=== PATIENT | male | born 1955 | race Caucasian/White ===

== ENCOUNTER → 2018-10-16 | Outpatient (CLI) | payer BC, OTHER | LOC: HYPER 06:57 | DX: T81.89XA Other complications of procedures, not elsewhere classified, initial encounter (principal); K61.1 Rectal abscess; K43.2 Incisional hernia without obstruction or gangrene; K43.9 Ventral hernia without obstruction or gangrene; E11.9 Type 2 diabetes mellitus without complications; I50.9 Heart failure, unspecified; N50.1 Vascular disorders of male genital organs; F41.9 Anxiety disorder, unspecified; F17.290 Nicotine dependence, other tobacco product, uncomplicated; F32.9 Major depressive disorder, single episode, unspecified; Z79.01 Long term (current) use of anticoagulants; Z93.3 Colostomy status; Z79.4 Long term (current) use of insulin; Z89.411 Acquired absence of right great toe; Y92.89 Other specified places as the place of occurrence of the external cause; Y83.8 Other surgical procedures as the cause of abnormal reaction of the patient, or of later complication, without mention of misadventure at the time of the procedure ==

== ENCOUNTER → 2018-10-27 | Outpatient (CLI) | payer BC, OTHER | LOC: HYPER 07:40 | DX: T81.89XD Other complications of procedures, not elsewhere classified, subsequent encounter (principal); I50.9 Heart failure, unspecified; K61.1 Rectal abscess; K43.2 Incisional hernia without obstruction or gangrene; K43.9 Ventral hernia without obstruction or gangrene; N50.1 Vascular disorders of male genital organs; F17.290 Nicotine dependence, other tobacco product, uncomplicated; F41.9 Anxiety disorder, unspecified; F32.9 Major depressive disorder, single episode, unspecified; Z89.411 Acquired absence of right great toe; Z79.01 Long term (current) use of anticoagulants; Z79.4 Long term (current) use of insulin; Y83.8 Other surgical procedures as the cause of abnormal reaction of the patient, or of later complication, without mention of misadventure at the time of the procedure ==

== ENCOUNTER → 2018-11-10 | Outpatient (CLI) | payer BC, OTHER | LOC: HYPER 08:28 | DX: T81.89XD Other complications of procedures, not elsewhere classified, subsequent encounter (principal); E11.9 Type 2 diabetes mellitus without complications; K61.1 Rectal abscess; K43.2 Incisional hernia without obstruction or gangrene; K43.9 Ventral hernia without obstruction or gangrene; I50.9 Heart failure, unspecified; N50.1 Vascular disorders of male genital organs; F17.290 Nicotine dependence, other tobacco product, uncomplicated; F41.9 Anxiety disorder, unspecified; F32.9 Major depressive disorder, single episode, unspecified; Z89.411 Acquired absence of right great toe; Z79.01 Long term (current) use of anticoagulants; Z79.4 Long term (current) use of insulin; Y83.8 Other surgical procedures as the cause of abnormal reaction of the patient, or of later complication, without mention of misadventure at the time of the procedure ==

== ENCOUNTER → 2018-12-11 | Outpatient (CLI) | payer BC, OTHER | LOC: HYPER 11-29 07:20 | DX: T81.89XD Other complications of procedures, not elsewhere classified, subsequent encounter (principal); E11.9 Type 2 diabetes mellitus without complications; I50.9 Heart failure, unspecified; K61.1 Rectal abscess; K43.2 Incisional hernia without obstruction or gangrene; K43.9 Ventral hernia without obstruction or gangrene; N50.1 Vascular disorders of male genital organs; F41.9 Anxiety disorder, unspecified; F32.9 Major depressive disorder, single episode, unspecified; F17.290 Nicotine dependence, other tobacco product, uncomplicated; Z79.01 Long term (current) use of anticoagulants; Z89.411 Acquired absence of right great toe; Z79.4 Long term (current) use of insulin; Y83.8 Other surgical procedures as the cause of abnormal reaction of the patient, or of later complication, without mention of misadventure at the time of the procedure ==

== ENCOUNTER → 2019-01-01 | Outpatient (CLI) | payer BC, OTHER | LOC: HYPER 06:47 | DX: T81.89XD Other complications of procedures, not elsewhere classified, subsequent encounter (principal); K61.1 Rectal abscess; K43.2 Incisional hernia without obstruction or gangrene; N50.1 Vascular disorders of male genital organs; K43.9 Ventral hernia without obstruction or gangrene; I50.9 Heart failure, unspecified; F41.9 Anxiety disorder, unspecified; F17.290 Nicotine dependence, other tobacco product, uncomplicated; F32.9 Major depressive disorder, single episode, unspecified; Z79.01 Long term (current) use of anticoagulants; Z89.411 Acquired absence of right great toe; Z79.4 Long term (current) use of insulin; Y83.8 Other surgical procedures as the cause of abnormal reaction of the patient, or of later complication, without mention of misadventure at the time of the procedure ==

== ENCOUNTER → 2019-02-19 | Outpatient (CLI) | payer BC, OTHER | LOC: HYPER 02-05 06:40 | DX: T81.89XD Other complications of procedures, not elsewhere classified, subsequent encounter (principal); E11.9 Type 2 diabetes mellitus without complications; K61.1 Rectal abscess; K43.2 Incisional hernia without obstruction or gangrene; N50.1 Vascular disorders of male genital organs; K43.9 Ventral hernia without obstruction or gangrene; I50.9 Heart failure, unspecified; F41.9 Anxiety disorder, unspecified; F32.9 Major depressive disorder, single episode, unspecified; F17.290 Nicotine dependence, other tobacco product, uncomplicated; Z79.01 Long term (current) use of anticoagulants; Z79.4 Long term (current) use of insulin; Y83.8 Other surgical procedures as the cause of abnormal reaction of the patient, or of later complication, without mention of misadventure at the time of the procedure ==

== ENCOUNTER → 2019-03-12 | Outpatient (CLI) | payer BC, OTHER | LOC: HYPER 06:49 | DX: T81.89XD Other complications of procedures, not elsewhere classified, subsequent encounter (principal); E11.9 Type 2 diabetes mellitus without complications; I50.9 Heart failure, unspecified; K61.1 Rectal abscess; K43.2 Incisional hernia without obstruction or gangrene; K43.9 Ventral hernia without obstruction or gangrene; N50.1 Vascular disorders of male genital organs; F17.290 Nicotine dependence, other tobacco product, uncomplicated; F41.9 Anxiety disorder, unspecified; F32.9 Major depressive disorder, single episode, unspecified; Z89.411 Acquired absence of right great toe; Z79.01 Long term (current) use of anticoagulants; Z79.4 Long term (current) use of insulin; Y83.8 Other surgical procedures as the cause of abnormal reaction of the patient, or of later complication, without mention of misadventure at the time of the procedure ==

== ENCOUNTER → 2019-04-16 | Outpatient (CLI) | payer BC, OTHER | LOC: HYPER 06:29 | DX: T81.89XD Other complications of procedures, not elsewhere classified, subsequent encounter (principal); K61.1 Rectal abscess; K43.2 Incisional hernia without obstruction or gangrene; I50.9 Heart failure, unspecified; N50.1 Vascular disorders of male genital organs; K43.9 Ventral hernia without obstruction or gangrene; F41.9 Anxiety disorder, unspecified; F17.210 Nicotine dependence, cigarettes, uncomplicated; F32.9 Major depressive disorder, single episode, unspecified; Z89.411 Acquired absence of right great toe; Z79.01 Long term (current) use of anticoagulants; Z79.4 Long term (current) use of insulin; Y83.8 Other surgical procedures as the cause of abnormal reaction of the patient, or of later complication, without mention of misadventure at the time of the procedure ==

== ENCOUNTER → 2019-05-21 | Outpatient (CLI) | payer BC, OTHER | LOC: HYPER 07:03 | DX: T81.89XD Other complications of procedures, not elsewhere classified, subsequent encounter (principal); E11.9 Type 2 diabetes mellitus without complications; K61.1 Rectal abscess; K43.2 Incisional hernia without obstruction or gangrene; I50.9 Heart failure, unspecified; N50.1 Vascular disorders of male genital organs; K43.9 Ventral hernia without obstruction or gangrene; F17.290 Nicotine dependence, other tobacco product, uncomplicated; F41.9 Anxiety disorder, unspecified; F32.9 Major depressive disorder, single episode, unspecified; Z89.411 Acquired absence of right great toe; Z79.01 Long term (current) use of anticoagulants; Z79.4 Long term (current) use of insulin; Y83.8 Other surgical procedures as the cause of abnormal reaction of the patient, or of later complication, without mention of misadventure at the time of the procedure ==

== ENCOUNTER → 2019-07-02 | Outpatient (CLI) | payer BC, OTHER | LOC: HYPER 07:36 | DX: T81.89XD Other complications of procedures, not elsewhere classified, subsequent encounter (principal); K61.1 Rectal abscess; K43.2 Incisional hernia without obstruction or gangrene; K43.9 Ventral hernia without obstruction or gangrene; N50.1 Vascular disorders of male genital organs; I50.9 Heart failure, unspecified; F17.290 Nicotine dependence, other tobacco product, uncomplicated; F41.9 Anxiety disorder, unspecified; F32.9 Major depressive disorder, single episode, unspecified; Z79.01 Long term (current) use of anticoagulants; Z79.4 Long term (current) use of insulin; Y83.8 Other surgical procedures as the cause of abnormal reaction of the patient, or of later complication, without mention of misadventure at the time of the procedure ==

== ENCOUNTER → 2019-08-15 | Outpatient (CLI) | payer BC, OTHER | LOC: HYPER 08-01 21:39 | DX: T81.89XD Other complications of procedures, not elsewhere classified, subsequent encounter (principal); K61.1 Rectal abscess; K43.2 Incisional hernia without obstruction or gangrene; N50.1 Vascular disorders of male genital organs; K43.9 Ventral hernia without obstruction or gangrene; E11.9 Type 2 diabetes mellitus without complications; I50.9 Heart failure, unspecified; F41.9 Anxiety disorder, unspecified; F17.290 Nicotine dependence, other tobacco product, uncomplicated; F32.9 Major depressive disorder, single episode, unspecified; Z89.411 Acquired absence of right great toe; Z79.01 Long term (current) use of anticoagulants; Z79.4 Long term (current) use of insulin; Y83.8 Other surgical procedures as the cause of abnormal reaction of the patient, or of later complication, without mention of misadventure at the time of the procedure ==

== ENCOUNTER → 2019-09-12 | Outpatient (CLI) | payer BC, OTHER | LOC: HYPER 08:11 | DX: T81.89XD Other complications of procedures, not elsewhere classified, subsequent encounter (principal); K61.1 Rectal abscess; K43.2 Incisional hernia without obstruction or gangrene; N50.1 Vascular disorders of male genital organs; K43.9 Ventral hernia without obstruction or gangrene; E11.9 Type 2 diabetes mellitus without complications; I50.9 Heart failure, unspecified; F17.290 Nicotine dependence, other tobacco product, uncomplicated; F41.9 Anxiety disorder, unspecified; F32.9 Major depressive disorder, single episode, unspecified; Z89.411 Acquired absence of right great toe; Z79.01 Long term (current) use of anticoagulants; Z79.4 Long term (current) use of insulin; Y83.8 Other surgical procedures as the cause of abnormal reaction of the patient, or of later complication, without mention of misadventure at the time of the procedure ==

== ENCOUNTER → 2019-10-10 | Outpatient (CLI) | payer BC, OTHER | LOC: HYPER 08:08 | DX: T81.89XA Other complications of procedures, not elsewhere classified, initial encounter (principal); K61.1 Rectal abscess; K43.2 Incisional hernia without obstruction or gangrene; K43.9 Ventral hernia without obstruction or gangrene; E11.9 Type 2 diabetes mellitus without complications; N50.1 Vascular disorders of male genital organs; I50.9 Heart failure, unspecified; F41.9 Anxiety disorder, unspecified; F17.290 Nicotine dependence, other tobacco product, uncomplicated; F32.9 Major depressive disorder, single episode, unspecified; Z89.411 Acquired absence of right great toe; Z79.01 Long term (current) use of anticoagulants; Z79.4 Long term (current) use of insulin; Y92.89 Other specified places as the place of occurrence of the external cause; Y83.8 Other surgical procedures as the cause of abnormal reaction of the patient, or of later complication, without mention of misadventure at the time of the procedure ==

== ENCOUNTER → 2019-12-14 | Outpatient (CLI) | payer BC, OTHER | LOC: HYPER 08:52 | DX: T81.89XD Other complications of procedures, not elsewhere classified, subsequent encounter (principal); E11.621 Type 2 diabetes mellitus with foot ulcer; L89.624 Pressure ulcer of left heel, stage 4; L97.425 Non-pressure chronic ulcer of left heel and midfoot with muscle involvement without evidence of necrosis; S31.000D Unspecified open wound of lower back and pelvis without penetration into retroperitoneum, subsequent encounter; K43.2 Incisional hernia without obstruction or gangrene; N50.1 Vascular disorders of male genital organs; K43.9 Ventral hernia without obstruction or gangrene; R23.4 Changes in skin texture; I50.9 Heart failure, unspecified; F41.9 Anxiety disorder, unspecified; F32.9 Major depressive disorder, single episode, unspecified; F17.200 Nicotine dependence, unspecified, uncomplicated; Z79.4 Long term (current) use of insulin; Z79.01 Long term (current) use of anticoagulants; Z79.82 Long term (current) use of aspirin; Z89.411 Acquired absence of right great toe; X58.XXXD Exposure to other specified factors, subsequent encounter; Y83.8 Other surgical procedures as the cause of abnormal reaction of the patient, or of later complication, without mention of misadventure at the time of the procedure ==

== ENCOUNTER → 2019-12-17 | Outpatient (CLI) | payer BC, OTHER | LOC: SJCVCIMAG 07:48 | DX: I73.9 Peripheral vascular disease, unspecified (principal); L97.429 Non-pressure chronic ulcer of left heel and midfoot with unspecified severity; L97.419 Non-pressure chronic ulcer of right heel and midfoot with unspecified severity ==

== ENCOUNTER → 2019-12-21 | Outpatient (CLI) | payer BC, OTHER | LOC: HYPER 08:50 | DX: T81.89XD Other complications of procedures, not elsewhere classified, subsequent encounter (principal); E11.621 Type 2 diabetes mellitus with foot ulcer; L89.624 Pressure ulcer of left heel, stage 4; L97.422 Non-pressure chronic ulcer of left heel and midfoot with fat layer exposed; K61.1 Rectal abscess; K43.2 Incisional hernia without obstruction or gangrene; K43.9 Ventral hernia without obstruction or gangrene; N50.1 Vascular disorders of male genital organs; R23.4 Changes in skin texture; I50.9 Heart failure, unspecified; F41.9 Anxiety disorder, unspecified; F17.290 Nicotine dependence, other tobacco product, uncomplicated; F32.9 Major depressive disorder, single episode, unspecified; Z89.411 Acquired absence of right great toe; Z79.01 Long term (current) use of anticoagulants; Z79.4 Long term (current) use of insulin; Y83.8 Other surgical procedures as the cause of abnormal reaction of the patient, or of later complication, without mention of misadventure at the time of the procedure ==

== ENCOUNTER → 2020-01-04 | Outpatient (CLI) | payer BC, OTHER | LOC: HYPER 08:19 | DX: T81.89XD Other complications of procedures, not elsewhere classified, subsequent encounter (principal); E11.621 Type 2 diabetes mellitus with foot ulcer; L89.624 Pressure ulcer of left heel, stage 4; L97.422 Non-pressure chronic ulcer of left heel and midfoot with fat layer exposed; K61.1 Rectal abscess; K43.2 Incisional hernia without obstruction or gangrene; K43.9 Ventral hernia without obstruction or gangrene; N50.1 Vascular disorders of male genital organs; E66.01 Morbid (severe) obesity due to excess calories; I50.9 Heart failure, unspecified; F41.9 Anxiety disorder, unspecified; F32.9 Major depressive disorder, single episode, unspecified; F17.290 Nicotine dependence, other tobacco product, uncomplicated; Z89.411 Acquired absence of right great toe; Z79.01 Long term (current) use of anticoagulants; Z79.4 Long term (current) use of insulin; Z68.29 Body mass index [BMI] 29.0-29.9, adult; Y83.8 Other surgical procedures as the cause of abnormal reaction of the patient, or of later complication, without mention of misadventure at the time of the procedure ==

== ENCOUNTER → 2020-01-18 | Outpatient (CLI) | payer BC, OTHER | LOC: HYPER 09:12 | DX: T81.89XD Other complications of procedures, not elsewhere classified, subsequent encounter (principal); E11.621 Type 2 diabetes mellitus with foot ulcer; L89.624 Pressure ulcer of left heel, stage 4; L97.422 Non-pressure chronic ulcer of left heel and midfoot with fat layer exposed; K61.1 Rectal abscess; K43.2 Incisional hernia without obstruction or gangrene; N50.1 Vascular disorders of male genital organs; K43.9 Ventral hernia without obstruction or gangrene; I50.9 Heart failure, unspecified; F41.9 Anxiety disorder, unspecified; Z79.4 Long term (current) use of insulin; Z79.01 Long term (current) use of anticoagulants; Z89.411 Acquired absence of right great toe; Y83.8 Other surgical procedures as the cause of abnormal reaction of the patient, or of later complication, without mention of misadventure at the time of the procedure ==

== ENCOUNTER → 2020-02-01 | Outpatient (CLI) | payer BC | LOC: HYPER 08:33 | DX: T81.89XD Other complications of procedures, not elsewhere classified, subsequent encounter (principal); E11.621 Type 2 diabetes mellitus with foot ulcer; L89.624 Pressure ulcer of left heel, stage 4; L97.421 Non-pressure chronic ulcer of left heel and midfoot limited to breakdown of skin; L84 Corns and callosities; K61.1 Rectal abscess; K43.2 Incisional hernia without obstruction or gangrene; E66.01 Morbid (severe) obesity due to excess calories; N50.1 Vascular disorders of male genital organs; I50.9 Heart failure, unspecified; K43.9 Ventral hernia without obstruction or gangrene; F41.9 Anxiety disorder, unspecified; F32.9 Major depressive disorder, single episode, unspecified; F17.290 Nicotine dependence, other tobacco product, uncomplicated; Z89.411 Acquired absence of right great toe; Z79.01 Long term (current) use of anticoagulants; Z79.4 Long term (current) use of insulin; Z68.29 Body mass index [BMI] 29.0-29.9, adult; Y83.8 Other surgical procedures as the cause of abnormal reaction of the patient, or of later complication, without mention of misadventure at the time of the procedure ==

== ENCOUNTER → 2020-02-15 | Outpatient (CLI) | payer BC | LOC: HYPER 08:09 | DX: T81.89XD Other complications of procedures, not elsewhere classified, subsequent encounter (principal); E11.621 Type 2 diabetes mellitus with foot ulcer; L89.624 Pressure ulcer of left heel, stage 4; L97.422 Non-pressure chronic ulcer of left heel and midfoot with fat layer exposed; K43.2 Incisional hernia without obstruction or gangrene; N50.1 Vascular disorders of male genital organs; K43.9 Ventral hernia without obstruction or gangrene; R23.4 Changes in skin texture; I50.9 Heart failure, unspecified; F41.9 Anxiety disorder, unspecified; F32.9 Major depressive disorder, single episode, unspecified; F17.290 Nicotine dependence, other tobacco product, uncomplicated; Z79.01 Long term (current) use of anticoagulants; Z79.4 Long term (current) use of insulin; Y83.8 Other surgical procedures as the cause of abnormal reaction of the patient, or of later complication, without mention of misadventure at the time of the procedure ==

== ENCOUNTER → 2020-03-07 | Outpatient (CLI) | payer BC | LOC: HYPER 08:05 | DX: T81.89XD Other complications of procedures, not elsewhere classified, subsequent encounter (principal); E11.621 Type 2 diabetes mellitus with foot ulcer; L89.613 Pressure ulcer of right heel, stage 3; L97.412 Non-pressure chronic ulcer of right heel and midfoot with fat layer exposed; L89.624 Pressure ulcer of left heel, stage 4; L97.421 Non-pressure chronic ulcer of left heel and midfoot limited to breakdown of skin; K61.1 Rectal abscess; R23.4 Changes in skin texture; K43.2 Incisional hernia without obstruction or gangrene; N50.1 Vascular disorders of male genital organs; K43.9 Ventral hernia without obstruction or gangrene; L84 Corns and callosities; I50.9 Heart failure, unspecified; F32.9 Major depressive disorder, single episode, unspecified; F41.9 Anxiety disorder, unspecified; F17.290 Nicotine dependence, other tobacco product, uncomplicated; Z79.01 Long term (current) use of anticoagulants; Z79.4 Long term (current) use of insulin; Z79.82 Long term (current) use of aspirin; Z89.411 Acquired absence of right great toe; Y83.8 Other surgical procedures as the cause of abnormal reaction of the patient, or of later complication, without mention of misadventure at the time of the procedure ==

== ENCOUNTER 2020-03-13 11:47 | Inpatient (IN) | payer BC, OTHER ==
[~2020-03-13] VITALS: Ht 182.9 cm; Wt 99.8 kg
[2020-03-13 11:51] VITALS: BP 96/63
[2020-03-13] MEDS ORDERED: COREG6.25 MG PO (12:14)
[2020-03-13] MEDS ORDERED: ANTIVERT25 MG PO (12:14)
[2020-03-13] MEDS ORDERED: ONDANSETRON HCL4 M2 PO (12:14)
[2020-03-13] MEDS ORDERED: GEMFIBROZIL 60600 M1 PO (12:15)
[2020-03-13] MEDS ORDERED: CELEBREX 200 M200 M1 PO (12:15)
[2020-03-13] MEDS ORDERED: NEURONTIN600 MG PO (12:15)
[2020-03-13] MEDS ORDERED: NORCO 5-325 TA1 EAC1 PO (12:15)
[2020-03-13] MEDS ORDERED: CILOSTAZOL 100100 MG PO (12:16)
[2020-03-13] MEDS ORDERED: ASA81BEC PO (12:16)
[2020-03-13] MEDS ORDERED: FOLIC ACID1 MG PO (12:16)
[2020-03-13] MEDS ORDERED: METHOTREXA1 GM/40 M2 IM (12:17)
[2020-03-13] MEDS ORDERED: NOVOLIN R100 UNIT/2 SUBQ (12:18)
[2020-03-13] MEDS ORDERED: ZYRTEC10 M5 PO (12:18)
[2020-03-13 13:16] LABS: BASOPHILS 0.5 % (0.0-2.0); EOSINOPHILS 0.2 % (0.0-3.0); HEMATOCRIT 35.9 % (42.0-52.0); HEMOGLOBIN 11.7 gm/dL (14.0-18.0); LYMPHOCYTES 7.9 % (24.0-44.0); MCH 28.9 pg (26.0-34.0); MCHC 32.5 g/dL (28.0-37.0); MCV 88.8 fL (80.0-100.0); MONOCYTES 6.2 % (1.0-8.0); PLATELET COUNT 327 thou/uL (150-400); POLYS 85.2 % (36.0-66.0); RBC 4.04 mil/uL (4.50-6.00); RDW 16.2 % (10.5-14.5); WBC 19.9 thou/uL (4.0-11.0)
[2020-03-13 13:27] LABS: CALCIUM 9.4 mg/dL (8.5-10.1); CREATININE 0.8 mg/dL (0.7-1.3); POTASSIUM 4.3 mmol/L (3.5-5.1)
[2020-03-13 13:33] LABS: ALBUMIN 2.2 g/dL (3.4-5.0); TOTAL BILIRUBIN 0.6 mg/dL (0.2-1.0); TOTAL PROTEIN 7.4 g/dL (6.4-8.2)
[2020-03-13 14:44] VITALS: BP 90/43
[2020-03-13 14:45] VITALS: BP 90/43
[2020-03-13 15:00] VITALS: BP 112/78; BP 90/43
--- NOTE | 2020-03-13 17:44 | NUR ---
PATIENT ADMITTED FROM ER, WITH OSTEOMYELITIS, SEPSIS, LEFT HEEL WOUND, FAILED OPTX. PATIENT ALERT AND ORIENTED X 4. PATIENT C/O PAIN WITH LEFT HEEL 8/10, MORPHINE 4NG IV GIVEN DURING ADMISSION. PATIENT HAS 2 IV'S RIGHT AC IV AND LEFT FOREARM IV. PATIENT ARRIVD ON THE UNIT AT 1545. WILL REPORT OFF TO PRIMARY NURSE.
--- NOTE | 2020-03-13 17:55 | NUR ---
SPOKE WITH DR RODRIGUEZ, HE AGREES WITH LEAVING FOAM DRESSING ON HEEL FOR TONIGHT AND HE WILL SEE PT IN THE AM. LIDODERM PATCH ORDER RECEIVED FOR HELP WITH PAIN RELIEF. WOUND PIC DONE OF LEFT HEEL. CLEANSED WITH CHLORHEXIDINE SWABS AND FOAM AND KERLIX APPLIED. PICTURE OF LEFT BUTTOCK CORRECTION "WOUND" PER PT TAKEN, HOWEVER NO OPEN SPOTS OR DRAINAGE COMING FROM IT, IT IS JUST A SOFT ROUND MASS ON THE INNER ASPECT OF THE LEFT BUTTOCK.
[2020-03-13 20:15] VITALS: BP 88/55
[2020-03-14 04:07] LABS: GLYCOHEMOGLOBIN (HGB A1C) 7.6 % (4.8-5.6)
[2020-03-14 05:00] VITALS: BP 106/76
[2020-03-14 05:37] LABS: ABSOLUTE NEUTROPHILS 13.6 thou/uL (1.4-8.2); BASOPHILS 0.4 % (0.0-2.0); HEMOGLOBIN 10.9 gm/dL (14.0-18.0); LYMPHOCYTES 13.4 % (24.0-44.0); MCHC 32.2 g/dL (28.0-37.0); MCV 90.1 fL (80.0-100.0); PLATELET COUNT 319 thou/uL (150-400); POLYS 76.2 % (36.0-66.0); RBC 3.77 mil/uL (4.50-6.00); RDW 15.9 % (10.5-14.5); WBC 17.8 thou/uL (4.0-11.0)
[2020-03-14 08:06] VITALS: BP 106/71
--- NOTE | 2020-03-14 08:34 | NUR ---
PROGRESS PT A/O X4 WOUND CARE TO LEFT HEAL LARGE AREA OF TISSUE MISSING FOUL ODOR BLACK WOUND EDGES AND THICK SLOUGH MATERIAL OVER WOUND BED. CLEANSED WITH NS MEPILEX ABD AND KERLIX APPLIED. TAKING HYDROCODONE FOR PAIN WITH EFFECT. ACCUCHECKS CONTINUE. CONTINUE POC.
--- NOTE | 2020-03-14 12:10 | HC ---
[facility] [place] [address] CONSULTATION Name: GLADYS VILLATORO Room #: 458-P [facility] IN M.R.#: [id number] Admission: 03/13/20 Attend Phys: Amilcar Lira MD Discharge: Date of : 55 Report #: [id number] THIS REPORT FOR: cc: Manish Guevara MD,Ron Dumas MD, MD ~ CC: Manish Lira DATE OF SERVICE: 03/14/2020 ENDOCRINE CONSULTATION NOTE CONSULTING PHYSICIAN: Dr. Lira. REASON FOR CONSULTATION: Type 2 diabetes mellitus, uncontrolled hyperglycemia. HISTORY OF PRESENT ILLNESS: This is a 64-year-old male patient whose medical background is significant for multiple medical issues including type 2 diabetes mellitus, congestive heart failure, diverticulitis, and chronic nonhealing foot wounds. The patient was admitted to the hospital primarily due to septic changes associated with his nonhealing left foot heel wound. The patient has been a diabetic, starting in 1990, and reports that he is currently maintained on Novolin R insulin at a dose of 34 units twice a day. He does not monitor his blood glucose levels whatsoever at home, but does not appreciate any issues with hypoglycemia. The patient is not aware of complications relating to diabetic retinopathy or diabetic nephropathy and does not have a history of coronary artery disease. However, he has significant difficulties with peripheral diabetic neuropathy, mostly affecting his feet, but to some extent his hands as well. The patient has been dealing with a nonhealing progressively worsening left heel wound over the past 3 months at least which has not responded to outpatient therapy including with antibiotics. REVIEW OF SYSTEMS: CONSTITUTIONAL: Fatigue, tiredness, poor appetite, diminishing p.o. intake, but not documented body weight changes. HEENT: Negative for sore throat, sinus pain or ear drainage. PULMONARY: Occasional shortness of breath, dyspnea on exertion, intermittent cough, but no hemoptysis. CARDIAC: History of congestive heart failure. Intermittent difficulties with leg edema, dyspnea on exertion, but no chest pain or palpitations. GASTROINTESTINAL: Abdominal discomfort, occasional nausea, but no vomiting, no hematemesis. NEUROLOGY: Baseline difficulties with peripheral diabetic neuropathy affecting both feet and hands. No seizure activity, no loss of consciousness. No severe [address] [address] CONSULTATION Name: GLADYS VILLATORO Room #: 458-P [facility] IN M.R.#: [id number] Admission: 03/13/20 Attend Phys: Amilcar Lira MD Discharge: Date of : 55 Report #: [id number] frequent headaches. DERMATOLOGY: Nonhealing left heel wound worsening progressive over 3 months. Otherwise, his review of systems noncontributory other than those mentioned in HPI. PAST MEDICAL HISTORY: 1. Type 2 diabetes mellitus. 2. Congestive heart failure. 3. Peripheral diabetic neuropathy. 4. Dyslipidemia. 5. Diverticulitis. 6. Rheumatoid arthritis. 7. Hypertension. OUTPATIENT MEDICATIONS: 1. Zofran 4 mg q.8 hours p.r.n. 2. Carvedilol 6.25 mg b.i.d. 3. Meclizine 25 mg daily as needed. 4. Gabapentin 600 mg p.o. b.i.d. 5. Celebrex 200 mg daily. 6. Gemfibrozil 600 mg t.i.d. 7. Aspirin enteric coated 81 mg daily. 8. Folic acid 1 mg daily. 9. Methotrexate 250 IV weekly. 10. Human R insulin 34 units b.i.d. 11. Zyrtec 10 mg daily. ALLERGIES: CIPROFLOXACIN. FAMILY HISTORY: Noncontributory. SOCIAL HISTORY: He lives with his , daughter. He smokes one and a half packs per day. Does not currently work. Does not drink alcohol or use illicit drugs. PHYSICAL EXAMINATION: GENERAL: male patient who is not in apparent pain or distress. VITAL SIGNS: Blood pressure is 106/71 mmHg, heart rate is 102 beats per minute, respiration 18 per minute, temperature 36.7 degrees Celsius. CONSTITUTIONAL: The patient is lying in bed, appears relatively comfortable, not in acute pain or distress. HEENT: Anicteric sclerae. Intact extraocular motions. NECK: Supple, without thyromegaly. CHEST: Noted for good air entry bilaterally with scattered rales. No wheezes. HEART: Regular rate and rhythm without murmurs or gallops. ABDOMEN: Soft, lax. No guarding. Active bowel sounds. [address] [address] CONSULTATION Name: GLADYS VILLATORO Room #: 458-P [facility] IN M.R.#: [id number] Admission: 03/13/20 Attend Phys: Amilcar Lira MD Discharge: Date of : 55 Report #: [id number] EXTREMITIES: Lower extremity exam noted for edema of the left foot is wrapped in surgical dressing. NEUROLOGIC: Awake, alert and oriented to time, place and person. The remainder of his examination is nonfocal other than for peripheral sensory deficits. PSYCHIATRIC: Pleasant, interactive. Normal mood and affect. LABORATORY DATA: Since arrival to the hospital, the patient had blood glucose values that have ranged from 102-122 mg/dL. Sodium 133, potassium 4.3, chloride 99, CO2 of 28, anion gap 6, BUN 15, creatinine 0.8, glucose 122, AST 16, total bilirubin 0.6, calcium 9.4, magnesium 1.5, alkaline phosphatase 93, ALT 9, total protein 7.4, albumin 2.2. EGFR 97. Lactic acid 1.5. White blood count 17.8, hemoglobin 10.9, hematocrit 34, and platelets 319. Hemoglobin A1c 7.6%. ASSESSMENT AND PLAN: 1. Type 2 diabetes mellitus. As noted above, the patient has had longstanding type 2 diabetes mellitus and is maintained on somewhat unusual regimen made completely of Humulin R insulin at a fairly large dose of 34 units twice a day. While the patient does not monitor his blood glucose values at all at home, which certainly puts us at a disadvantage of better understanding his most recent pattern, it is rather interesting that his hemoglobin A1c which was last seen on reported at 11% as per the patient a few months ago, has dropped to 7.6% recently and I discussed this dramatic change with him. He attributed that to his diminishing and severely limited p.o. intake as of the last several weeks, which he attributes to nausea and just simply losing appetite. During this hospital stay so far, the patient has maintained normal glycemia without any active line of therapy aside from a Humalog supplemental scale, which has not been activated due to lack of need. In the immediate setting, we could certainly continue with the current conservative approach, maintain blood glucose monitoring a.c. and at bedtime, and adjust his management accordingly. Long-term, and given this level of glycemia and the lack of need of scheduled insulin intake, the patient could certainly be a candidate for oral antidiabetic therapy such as metformin and/or sulfonylureas. 2. Peripheral diabetic neuropathy. The patient has what is described by him as severe neuropathy. He is maintained on gabapentin 600 mg b.i.d., which appears to offer fair control of his symptoms, he is to continue with the same. 3. Hypertension. The patient's level of blood pressure control is adequate, he is to continue with the same. 4. Cellulitis. The patient has been having significant issues with progressive nonhealing left heel wound with possible osteomyelitis. He is currently on vancomycin and ceftriaxone. Wound Team is following closely. 5. Dyslipidemia. The patient is maintained on Lopid 600 mg twice a day, I will continue the same regimen. [address] [address] CONSULTATION Name: GLADYS VILLATORO Room #: 458-P [facility] IN M.R.#: [id number] Admission: 03/13/20 Attend Phys: Amilcar Lira MD Discharge: Date of : 55 Report #: [id number] I certainly appreciate this consultation by Dr. Lira. <ELECTRONICALLY SIGNED> By: Ron Chisholm MD 03/14/20 1210 1035 1148 Ron Chisholm MD /nt
[2020-03-14 14:58] VITALS: BP 115/75
--- NOTE | 2020-03-14 15:33 | NUR ---
PT ADMITTED RELATED TO OSTEOMYELITIS, LEFT HEEL WOUND, SEPSIS, FAILED OPTX. CM REVIEWED CHART AND SPOKE WITH CARE TEAM. CM CALLED AND SPOKE WITH PT AT BEDSIDE THIS DAY. PT IS A&O X4. CM ROLE INTRODUCED. PT INDICATED HE LIVES IN A HOUSE WITH HIS SPOUSE AND DTRS FAMILY WITH NO STEPS TO ENTER THROUGH THE BACK AND NONE INSIDE. PT INDICATED HE HAD A CANE FOR USE AT HOME. PT INDICATED HH A LONG TIME AGO BUT HAD BEEN DOING OP WC HERE RN STAFFING. PT INDICATED HE HAD BEEN INDEPDENENT WITH GAIT AND ADLS RN STAFFING. PT INDICATED HIS DTR IS A NURSE AND ASSISTS HIM WITH THINGS AT HOME IF NEEDED DOESN'T REALLY WANT HH UPON DC. PT INDICATED HE PLANS TO RETURN HOME ONCE MEDICALLY STABLE. CM TO FOLLOW INDICATED WITH DC PANNING.
--- NOTE | 2020-03-14 19:52 | NUR ---
Assumed pt care at 7am.Pt in and out of bed byself with walker.Assessment completed.vss.Received call from pt family ,updates given.Dr Lira and Surya here,order noted.Pt went for us and mri after breakfast.Drsg change done to left heel as ordered.Pt vanco trough this evening was 13.Dr Scruggs paged but no return call received.Po pain med given as needed.Repot off to Mohini arceo.
[2020-03-14 20:16] VITALS: BP 114/68
[2020-03-15 00:38] VITALS: BP 114/71
[2020-03-15 01:12] LABS: CREATININE 0.8 mg/dL (0.7-1.3); MAGNESIUM 1.5 mg/dL (1.8-2.4); POTASSIUM 3.9 mmol/L (3.5-5.1)
[2020-03-15 03:26] VITALS: BP 114/76
--- NOTE | 2020-03-15 04:01 | NUR ---
PATIENT AOX4 MAKES NEEDS KNOWN. PATIENT HAD SEVERAL PVCS AND ABNORMAL HEART RHYTHM AND TACHYCARDIC WITHOUT ACTIVITY. PATIENT NOTIFIED THIS NURSE HE IS HAVING TO SHIFT SIDE TO BREATHING EASILY. PREP COOK NOTIFIED NEW ORDER OF STAT LAB, EKG AND CHEST X RAY. CHEST X RAY SHOULD PNEUMONIA AND PE. PREP COOK NOTIFIED. PATIENT VANCO. WAS NOT HANGED D/T DR. DICKENS CALL BACK PREP COOK NOTIFIED AND K. TO INFUSE 0100 DOSE. PAIN CONTROLLED THIS SHIFT. PATIENT LEFT HEEL DRESSING IS C/D/I WITH A STRONG ODOR. PATIENT IN BED ASLEEP AT THIS TIME BREATHING REGULAR AND UNLABOURED.
[2020-03-15 06:16] LABS: HEMATOCRIT 31.9 % (42.0-52.0); HEMOGLOBIN 10.4 gm/dL (14.0-18.0); MCHC 32.6 g/dL (28.0-37.0); MCV 88.8 fL (80.0-100.0); RBC 3.59 mil/uL (4.50-6.00); WBC 13.7 thou/uL (4.0-11.0)
[2020-03-15 06:34] LABS: CREATININE 0.6 mg/dL (0.7-1.3); MAGNESIUM 2.2 mg/dL (1.8-2.4); POTASSIUM 3.6 mmol/L (3.5-5.1)
[2020-03-15 07:29] VITALS: BP 126/83
--- NOTE | 2020-03-15 10:12 | EKG ---
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: [facility] : 1955 Requested By: Keyla Solis Order Number: [id number] MD: Nemesio Palma Measurements Intervals Hanahan Rate: 100 P: 1 PA: 181 QRS: 57 QRSD: 122 T: -77 QT: 352 QTc: 454 Interpretive Statements Sinus tachycardia Paired ventricular premature complexes Nonspecific intraventricular conduction delay Borderline repolarization abnormality No previous ECG available for comparison Electronically Signed On 03-15-2020 10:11:07 CDT by Nemesio Palma [email or web address] <ELECTRONICALLY SIGNED> By: Nemesio Palma MD 03/15/20 1011 7 7 Nemesio Palma MD /LOUISE
[2020-03-15 15:23] VITALS: BP 107/67
--- NOTE | 2020-03-15 15:41 | NUR ---
ASSUMED CARE OF PT AT 1500, REVIEWED POC, PT VERBALIZED UNDERSTANDING, IV ABX RUNNING, PT RESTING IN BED, DENIED PAIN, TV ON, CALL LIGHT AT SIDE, WILL MONITOR
--- NOTE | 2020-03-15 15:45 | NUR ---
Assumed pt care at 7am.Pt in bed resting.Assessment completed.vss.Pt c/o left knee pain rated 8/10.Dilaudid ivp given with relief.Dr Aguilera here informed pt about bka .Pt was emotional and wanted to think about and seek Dr Carlton's opinion.Emotional support given.Pt tolerated meds and diet.Left heel drsg intact.Waiting for Dr Jones to round before drgs change.Report off to Mylene arceo.
--- NOTE | 2020-03-15 18:08 | NUR ---
ASSUMED PT CARE AT 1500, PT RESTING IN BED, TV ON, CALL LIGHT AT SIDE, IV ABX INFUSING, AOX4, POC REVIEWED, PT VERBALIZED UNDERSTANDING, WILL MONITOR.
[2020-03-15 20:10] VITALS: BP 113/68
[2020-03-16 03:54] VITALS: BP 94/59
[2020-03-16 06:18] LABS: HEMATOCRIT 31.2 % (42.0-52.0); HEMOGLOBIN 10.2 gm/dL (14.0-18.0); MCHC 32.7 g/dL (28.0-37.0); MCV 88.8 fL (80.0-100.0); RBC 3.51 mil/uL (4.50-6.00); RDW 15.9 % (10.5-14.5); WBC 11.3 thou/uL (4.0-11.0)
[2020-03-16 06:37] LABS: CALCIUM 8.8 mg/dL (8.5-10.1); CREATININE 0.8 mg/dL (0.7-1.3); MAGNESIUM 1.6 mg/dL (1.8-2.4); POTASSIUM 3.9 mmol/L (3.5-5.1)
--- NOTE | 2020-03-16 07:42 | NUR ---
RECIEVED CARE OF THIS PATIENT AT 1900. C/O PAIN IN L HEEL. DRESSING ON L HEEL D/I. IV IN LFA. ACCUCHECK WAS 174, RECIEVED 3UNIT OF LISPRO INSULIN. UP TO BATHROOM BY SELF. IV PAIN MED GIVEN. PATIENT ALERT AND ORIENTED X4. SLEPT VERY LITTLE THIS SHIFT.
[2020-03-16 08:31] VITALS: BP 113/77
[2020-03-16 08:32] VITALS: BP 113/77
--- NOTE | 2020-03-16 11:33 | NUR ---
DR VELASCO HERE TO SEE PATIENT AND WOUND, THIS NURSE DID WOUND CARE TO LEFT HEEL ORDERED AT 0815.DR GLYNN HERE TO SEE PATIENT WILL DO LEFT BKA PATIENT IS AWARE OF PENDING SURGERY.
[2020-03-16 14:32] VITALS: BP 104/69
[2020-03-16 19:13] VITALS: BP 87/57
[2020-03-16 23:47] VITALS: BP 12/71
[2020-03-17 04:00] VITALS: BP 120/72
--- NOTE | 2020-03-17 04:03 | NUR ---
PATIENT LEFT HEEL DRESSING IS C/D/I, WOUND HAS STRONG ODOR. PATIENT HAS BEEN TACHY IN THE MONITOR AND X2 V TACH CALLED BASKETBALL PLAYER NEW ORDER OF MAGNESSIUN AND POTTASSIUM. PAIN CONTROLLED THIS SHIFT. PATIENT IS UP AT MICHAEL.PATIENT IN BED ASLEEP AT THIS TIME BREATHING REGULAR AND UNLABOURED.
[2020-03-17 04:48] LABS: HEMATOCRIT 31.8 % (42.0-52.0); HEMOGLOBIN 10.3 gm/dL (14.0-18.0); MCH 28.7 pg (26.0-34.0); MCHC 32.3 g/dL (28.0-37.0); MCV 88.9 fL (80.0-100.0); RBC 3.58 mil/uL (4.50-6.00); RDW 16.2 % (10.5-14.5); WBC 15.2 thou/uL (4.0-11.0)
[2020-03-17 05:10] LABS: CALCIUM 8.6 mg/dL (8.5-10.1); CREATININE 0.8 mg/dL (0.7-1.3); MAGNESIUM 1.7 mg/dL (1.8-2.4)
[2020-03-17 07:27] VITALS: BP 111/63
[2020-03-17 10:21] LABS: CHOLESTEROL 99 mg/dL (<200); HDL CHOLESTEROL 22 mg/dL (>40); LDL CHOLESTEROL 63 mg/dL (<100); TC:HDL 4.5 Ratio (Not establshd); TRIGLYCERIDE 71 mg/dL (<150); VLDL 14 mg/dL (<40)
--- NOTE | 2020-03-17 11:20 | NUR ---
Assumed pt care at 7am.Assessment completed.vss.Pt was anxious about going for left bka today at noon.Emotional support giveN. called and imnformed about coming to preop room.Pt c/o left heel.Dilaudid ivp given with partial relief.Pt has episode of svt around 1100. One dose of toprol ivp given prior to leaving for surgery at 1120 per bed accompanied by 2 or tech.Will continue to monitor.
--- NOTE | 2020-03-17 11:35 | 2DMMODE ---
[facility] [place] [address] 2 D/M-MODE ECHOCARDIOGRAM Name: GLADYS VILLATORO Room #: 458-P ADM IN M.R.#: [id number] Admission: 03/13/20 Attend Phys: Amilcar Lira MD Discharge: Date of : 55 Report #: [id number] THIS REPORT FOR: cc: Manish Guevara MD, John MD Lammoglia, Francisco J. MD ~ APPROVED REPORT Study performed: 03/17/2020 09:41:08 EXAM: Comprehensive 2D, Doppler, and color-flow Echocardiogram Patient Location: Bedside Room #: 458 Status: routine BSA: 2.22 HR: 107 bpm BP: 111/63 mmHg Rhythm: Tachycardia/Irregular Indications History of CHF, arrhythmias. Pre-Op. DM, HLD, tobacco abuse. 2D Dimensions RVDd: 47.55 mm IVSd: 10.27 (7-11mm) LVOT Diam: 27.41 (18-24mm) LVDd: 69.51 mm PWd: 9.99 (7-11mm) Ascending Ao: 43.24 (22-36mm) LVDs: 66.75 (25-40mm) Aortic Root: 40.42 mm Volumes Left Atrial Volume (Systole) Single Plane 4CH: 100.25 mL Single Plane 2CH: 88.70 mL LA ESV Index: 47.00 mL/m2 Aortic Valve AoV Peak Daniel.: 1.56 m/s AO Peak Gr.: 9.78 mmHg LVOT Max P.07 mmHg LVOT Max V: 0.72 m/s AMILCAR Vmax: 2.71 cm2 Mitral Valve E/A Ratio: 1.2 [facility] [address] [place] [address] 2 D/M-MODE ECHOCARDIOGRAM Name: GLADYS VILLATORO Room #: 458-P [facility] IN [facility].#: [id number] Admission: 03/13/20 Attend Phys: Amilcar Lira, Discharge: Date of : 55 Report #: [id number] MV Decel. Time: 154.12 ms MV E Max Daniel.: 1.39 m/s MV A Daniel.: 1.15 m/s MV PHT: 44.69 ms IVRT: 51.90 ms Pulmonary Valve PV Peak Daniel.: 0.90 m/s PV Peak Gr.: 3.22 mmHg Pulmonary Vein P Vein S: 0.36 m/s P Vein D: 0.50 m/s P Vein S/D Ratio: 0.72 Tricuspid Valve TR Peak Daniel.: 3.64 m/s RAP Estimate: 15.00 mmHg TR Peak Gr.: 53.00 mmHg Left Ventricle Left ventricle is severely dilated. There is global hypokinesis of the left ventricle. There is normal left ventricular wall thickness. Left ventricular systolic function is severely decreased. LVEF is 15-20%. This study is not technically sufficient to allow evaluation of the LV diastolic function. Right Ventricle Right ventricle is dilated. The right ventricular systolic function is low normal. Atria Left atrium is severely dilated. Right atrium is moderately dilated. Aortic Valve Aortic valve is mildly calcified. No aortic regurgitation is present. There is no aortic valvular stenosis. Mitral Valve The mitral valve is normal in structure. Severe mitral regurgitation. Tricuspid Valve The tricuspid valve is normal in structure. Moderate tricuspid regurgitation. Estimated PAP is 68mmHg. Pulmonic Valve [facility] [address] [place] [address] 2 D/M-MODE ECHOCARDIOGRAM Name: GLADYS VILLATORO Room #: 458-P [facility] IN M.R.#: [id number] Admission: 03/13/20 Attend Phys: Amilcar Lira, Discharge: Date of : 55 Report #: [id number] The pulmonary valve is normal in structure. Mild pulmonic regurgitation. Great Vessels Aortic root is dilated at 4.0cm. Ascending aorta is dilated at 4.3cm. IVC is dilated and collapses <50% with inspiration. Pericardium There is no pericardial effusion. <Conclusion> Left ventricle is severely dilated. LVEF is 15-20%. There is global hypokinesis of the left ventricle. Right ventricle is dilated. Left atrium is severely dilated. Right atrium is moderately dilated. Aortic valve is mildly calcified. The mitral valve is normal in structure. Severe mitral regurgitation. The tricuspid valve is normal in structure. Moderate tricuspid regurgitation. Estimated PAP is 68mmHg. The pulmonary valve is normal in structure. Mild pulmonic regurgitation. Aortic root is dilated at 4.0cm. Ascending aorta is dilated at 4.3cm. There is no pericardial effusion. <ELECTRONICALLY SIGNED> By: Rush Freed MD 03/17/20 1134 1134 1134 Rush Freed MD /INF
--- NOTE | 2020-03-17 14:59 | NUR ---
CARE TEAM INDICATED THAT PT IS HAVING L BKA THIS DAY. CM TO DISCUSS POSSIBLE POUST ACUTE CARE STAY ON 5N ONCE MEDICALLY STABLE. CM TO NOTIFY 5N LIAISON TO ENTER CONSULT IF PT IS RECEPTIVE. CM TO FOLLOW INDICATED WITH DC PLANNING.
[2020-03-17 19:33] VITALS: BP 117/74
[2020-03-18 04:06] VITALS: BP 112/70
--- NOTE | 2020-03-18 04:53 | NUR ---
PAIN CONTROLLED THIS SHIFT. PATIENT ENCOURAGED TO ELEVATE LEFT STUMP ABOVE LEVEL OF HIS HEART. PAIN CONTROLLED THIS SHIFT. 50ML DRAINAGE ON HEMOVAC. RANDAL WRP ON THE LBKA IS C/D/I. FALL PRECAUTION IN PLACE. CALL LIGHT AND PERSONAL ITEM WITHIN REACH. PATIENT IN BED ASLEEP AT THIS TIME BREATHING REGULAR AND UNLABOURED.
[2020-03-18 06:07] LABS: HEMATOCRIT 31.7 % (42.0-52.0); MCH 28.3 pg (26.0-34.0); MCHC 31.6 g/dL (28.0-37.0); MCV 89.3 fL (80.0-100.0); RBC 3.55 mil/uL (4.50-6.00); RDW 15.8 % (10.5-14.5); WBC 16.8 thou/uL (4.0-11.0)
[2020-03-18 06:22] LABS: CALCIUM 8.5 mg/dL (8.5-10.1); CREATININE 0.8 mg/dL (0.7-1.3); MAGNESIUM 1.5 mg/dL (1.8-2.4); POTASSIUM 3.5 mmol/L (3.5-5.1)
--- NOTE | 2020-03-18 07:12 | HC ---
[facility] [place] [address] CONSULTATION Name: GLADYS VILLATORO Room #: 458-P [facility] IN M.R.#: [id number] Admission: 03/13/20 Attend Phys: Amilcar Lira MD Discharge: Date of : 55 Report #: [id number] THIS REPORT FOR: cc: Manish Guevara MD,Manish Wasserman,Dea Sullivan MD ~ CC: Manish Lira DATE OF SERVICE: 03/14/2020 ORTHOPEDIC CONSULTATION NOTE REASON FOR CONSULTATION AND CHIEF COMPLAINT: Left heel wound/osteomyelitis. HISTORY OF PRESENT ILLNESS: The patient is a 64-year-old male, poorly controlled diabetic, who reports a left heel wound for about 3 months. He denies any specific injury. He reports that it is painful. He has been [facility] by [facility] and cultures showed an infection. He was then recommended to be admitted. REVIEW OF SYSTEMS: GENERAL: Denies fevers. Does report some occasional chills. INTEGUMENTARY: Denies other wounds. NEUROLOGIC: Reports a history of neuropathy in all of his extremities. PAST MEDICAL HISTORY: Significant for rheumatoid arthritis, diabetes mellitus, diverticulitis. ALLERGIES: CIPROFLOXACIN. SOCIAL HISTORY: Ambulates with a cane usually. Reports he quit smoking yesterday. PAST SURGICAL HISTORY: Cholecystectomy, right great toe amputation. LABORATORY STUDIES: Done on 03/14/2020 show white blood cell count 17.8, hemoglobin 10.9, hematocrit 34, platelet count 319. PHYSICAL EXAMINATION: GENERAL: The patient is awake, alert and oriented x 3, interacts appropriately. He is well-developed, well-nourished male in no acute distress. He has normal affect. VITAL SIGNS: Most recent vital signs show a temperature of 36.6, heart rate 100, respiratory rate 16, blood pressure 106/76, pulse oximetry is 96% on room air. [facility] [address] [place] [address] CONSULTATION Name: GLADYS VILLATORO Room #: 458-P [facility] IN .R.#: [id number] Admission: 03/13/20 Attend Phys: Amilcar Lira MD Discharge: Date of : 55 Report #: [id number] EXTREMITIES: Examination of his left lower extremity, there is a foul odor. There is diffuse edema to his foot and ankle with mild diffuse erythema. There is a 5 cm heel ulcer with necrotic tissue. He has grossly normal strength and stability. He has brisk capillary refill. I am unable to palpate a pulse. RADIOGRAPHS: Three views of the left foot were reviewed and interpreted by myself as well as the report was reviewed, which shows some posterior calcaneal changes, most likely representing early osteomyelitis. 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 We will await the MRI. We will discuss with one of my [facility] partners who will see him this weekend. He may need a debridement. We briefly discussed he may possibly need an amputation at some point. I encouraged good diabetic control. Questions were encouraged and answered to the best of my ability. <ELECTRONICALLY SIGNED> By: Dea Wasserman MD 03/18/20711 9 0629 Dea Wasserman MD /nt
[2020-03-18 07:34] VITALS: BP 121/79
[2020-03-18 07:55] VITALS: BP 153/63
--- NOTE | 2020-03-18 14:40 | O ---
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 PROCEDURE: Left below-knee amputation. SURGEON: Jasen Aguilera MD. AEROSPACE QUALITY ENGINEER: Rhona Grant PA-C. INDICATIONS FOR AEROSPACE QUALITY ENGINEER: Throughout the case, extensive retraction and manipulation of the leg was required. This was afforded to me by my health care legal assistant. ANESTHESIA: LMA. TOURNIQUET TIME: 24 minutes. ESTIMATED BLOOD LOSS: 50 mL. COMPLICATIONS: None. SPECIMENS: Left foot was sent for pathology. CONDITION UPON LEAVING THE OPERATING ROOM: Stable. INDICATIONS FOR PROCEDURE: The patient is a 64-year-old gentleman who is a diabetic with severe peripheral vascular disease. He has had a heel ulcer for several months. This has gotten progressively worse despite conservative measures. MRI scan was performed showing to have osteomyelitis of his calcaneus. After discussion with him regarding treatment options including below-knee amputation versus partial calcanectomy and debridement, he elected for below-knee amputation. [facility] [address] [place] [address] OPERATIVE REPORT Name: GLADYS VILLATORO Room #: 458-P [facility] IN M.R.#: [id number] Admission: 03/13/20 Attend Phys: Amilcar Lira MD Discharge: Date of : 55 Report #: [id number] DESCRIPTION OF PROCEDURE: Risks, benefits, alternatives, complications were discussed in detail with the patient including but not limited to risk of anesthesia, risk of continued infection, need for higher amputation. Informed consent was obtained from the patient. Left leg was appropriately marked in the preoperative holding area. He previously was on IV antibiotics and these were continued. He was brought to the operating room and placed in supine position on operating room table. LMA anesthesia was induced without complication. Tourniquet was placed on the left thigh. Left lower extremity was prepped and draped in normal sterile fashion. Timeout was performed properly identifying the patient and procedure as well as the instrumentation. All in the operating room were in agreement. The leg was then marked with a skin marker for a posterior flap transtibial amputation. Left lower extremity was elevated, tourniquet was inflated. Tourniquet time was 24 minutes. Incision was made with 10 blade through the skin and dissection was taken with Bovie cautery down to the fascia. A transtibial cut was made with the oscillating saw. Anterior portion of the tibia was bevelled. The fibula was resected 1 cm proximal to the tibial resection and vessels were dissected out and tied off. Tibial nerve was dissected out and cut sharply with a 10 blade to avoid neuroma formation. After the amputation was completed, the posterior musculature was debulked in order to be a flap anteriorly. The wound was thoroughly irrigated with normal saline. The posterior musculature was flapped over the end of the tibia and was sewn to the anterior fascia. Deep drain was placed. The skin was closed with 2-0 Vicryl and skin ana rosa and a soft dressing was applied. The patient tolerated this procedure well and went to the recovery room under care of anesthesia postoperatively. <ELECTRONICALLY SIGNED> By: Jasen Aguilera MD 03/18/20 1440 1428 1453 Jasen Aguilera MD /nt
[2020-03-18 14:45] VITALS: BP 111/88
--- NOTE | 2020-03-18 15:54 | NUR ---
CM SPOKE WITH PT THIS AM ABOUT POSSIBLE POST ACUTE CARE STAY AND 5N. PT WAS SOMEWHAT RELUCTANT BUT HE HADN'T WORKED WITH THERAPY YET. HE WAS RECEPTIVE TO INFORMATIONAL VISIT. KATTY 5N LIAISON WAS TO VISIT/ASSSESS PT. CM TO FOLLOW INDICATED WITH DC PLANNING.
--- NOTE | 2020-03-18 19:30 | NUR ---
Assessment completed.vss.Pt was svt per tele.Dr Lira and stefany aware. Toprol ivp given .Assisted pt with tray setup at all meals.Good appetite.Pt tolerated meds. Received call from Ortho manager coding order noted.Hemovac will be dc this evening.Lt erich jim c/d/i.Report off to she arceo.
[2020-03-18 19:50] VITALS: BP 85/47
[2020-03-18 23:11] VITALS: BP 132/101
--- NOTE | 2020-03-18 23:31 | NUR ---
ELIDA KENDRICK NOTIFIED RE: LOW BP. ORDERS RECEIVED AND STARTED.
[2020-03-19 05:03] VITALS: BP 79/54
[2020-03-19 05:52] LABS: CALCIUM 8.4 mg/dL (8.5-10.1); CREATININE 1.4 mg/dL (0.7-1.3); MAGNESIUM 1.8 mg/dL (1.8-2.4); POTASSIUM 3.6 mmol/L (3.5-5.1)
[2020-03-19 06:08] VITALS: BP 90/64
[2020-03-19 07:28] VITALS: BP 106/57
--- NOTE | 2020-03-19 08:43 | NUR ---
PATIENT SEEN FOR REHAB CONSULT ON 03/18/20 BY KATTY LEON NP WITH DR. BURK. PATIENT IS AN APPROPRIATE CANDIDATE FOR ACUTE REHAB. PATIENT CAN COME TO WHEN MEDICALLY READY AND INSURANCE AUTHORIZATION HAS BEEN OBTAINED. THANK YOU FOR THIS REFERRAL.
--- NOTE | 2020-03-19 13:19 | NUR ---
KATTY Barros LIAISON ASSESSED PT YESTERDAY AND IT WAS DETERMINED THAT PT WOULD BE APPROPRIATE FOR POSSIBLE ADMISSION. PT IS AGREEABLE. CARE TEAM ASKED THAT JohnN AUBMIT FOR INSURANCE AUTH AND ANTICIPATE THAT PT MAY BE MEDICALLY STABLE TO DC SOON TOMORROW. CM FOLLOWING REGARDING DC PLANNING.
[2020-03-19 14:50] VITALS: BP 106/59
--- NOTE | 2020-03-19 15:08 | PATH ---
[facility] [address] [place] [address] PATHOLOGY RPT PROCEDURE Name: GEOFF PEARSON Room #: 458-P ADM IN M.R.#: [id number] Admission: 03/13/20 Date of : 55 Discharge: Report #: [id number] Path Case #: [id number] [facility] Accession Number: [id number] . 01 Material submitted: . leg - LEFT BELOW THE KNEE AMPUTATION. Modifiers: left . 01 Clinical history: . osteomyelitis . 02 Diagnosis: Leg, left, below the knee amputation: - Skin and subcutaneous tissue with ulceration as well as gangrenous necrosis. - Bone with acute osteomyelitis. - Vessels showing moderate calcific atherosclerosis. - Skin and soft tissue margin viable. - Bone margin grossly viable. . (IUV:mml; 03/19/2020) QL 03/19/2020 1132 Local . 02 Electronically signed: . Annette Machado MD, Pathologist NPI- [id number] . 01 Gross description: . Received fresh in a red biohazard bag labeled "Geoff Pearson, left below the knee amputation" and consists of a left below the knee amputation specimen measuring 31.5 cm heel to proximal skin soft tissue margin and 27.0 cm heel to big toe. Protruding from the proximal margin is the tibia and fibula measuring 6.0 and 2.0 cm respectively. The skin soft tissue and bone margins grossly appear viable. Present on the heel is a large gangrenous ulcerating lesion measuring 7.2 x 5.0 cm. All 5 toes are present displaying thickened yellow-brown nails. No additional lesions are identified. The tibial vasculature displays patent lumens. Automatic Lump Making Machine Tender sections are submitted as follows: . A1: Skin soft tissue margin A2: Heel ulceration A3: Bone deep to heel ulceration following decalcification A4: Anterior and posterior tibial arteries (SDY; 03/18/2020) SYU/SYU 03/19/2020 1410 Local . 02 Pathologist provided ICD-10: L97.929, I96, I70.[address] [address] PATHOLOGY RPT PROCEDURE Name: GEOFF PEARSON Room #: 458-P ADM IN M.R.#: [id number] Admission: 03/13/20 Date of : 55 Discharge: Report #: [id number] Path Case #: [id number] . 02 [facility] . [id number], [id number] Specimen Comment: A courtesy copy of this report has been sent to [phone] Specimen Comment: [id number], Specimen Comment: Report sent to ,DR JESUS / DR DOLL Specimen Comment: Report sent to Performed at: [address] [facility], [place] [id number] MD Jose Watson MD Phone: [phone] Performed at: [address] [facility] [id number] MD Annette Machado MD Phone: [phone]
[2020-03-19 19:25] VITALS: BP 90/54
[2020-03-20 05:57] LABS: CALCIUM 8.8 mg/dL (8.5-10.1); CREATININE 1.5 mg/dL (0.7-1.3); MAGNESIUM 1.8 mg/dL (1.8-2.4); POTASSIUM 3.6 mmol/L (3.5-5.1)
[2020-03-20 07:38] VITALS: BP 116/69
--- NOTE | 2020-03-20 08:19 | NUR ---
PT AOX4. FALL PRECAUTION IN PLACE. STUMP DRESSING IS C/D/I. PT REPORTED PAIN AND WAS TREATED WITH PRN PAIN MEDS. PT IS PASSING GAS. ABX TREATMENT CONTINUED. PT RUNS TACHY ON TELE. PROVIDER AWARE. PT HAS A SOFT BP BUT OTHER VSS. NO S/S OF ACUTE DISTRESS.
--- NOTE | 2020-03-20 08:59 | NUR ---
when medical stable for dc to 5n, bedside nurse to call report to [phone]
[2020-03-20] MEDS ORDERED: PROTONIX40 M1 PO (17:29)
[2020-03-20] MEDS ORDERED: ALTACE5 MG PO (17:29)
[2020-03-20] MEDS ORDERED: LIDOPATCH1 EACH TRANSDERM (17:29)
[2020-03-20] MEDS ORDERED: NOVOLOG100 UNIT/1 SUBQ (17:29)
[2020-03-20] MEDS ORDERED: CEFEPIME 1 GM VI1 G2 INJECTION (17:29)
[2020-03-20] MEDS ORDERED: HEPARIN SO5000 UNIT/ SUBQ (17:29)
[2020-03-20] MEDS ORDERED: TRADJENTA5 MG PO (17:29)
[2020-03-20] MEDS ORDERED: VANCOMYCIN HCL1 G1 IV (17:29)
[2020-03-20] MEDS ORDERED: METRONIDAZOLE500 M4 IV (17:29)
[2020-03-20] MEDS ORDERED: PERCOCET PO (17:30)
[2020-03-20 17:32] VITALS: BP 92/60
--- NOTE | 2020-03-20 18:31 | NUR ---
Assumed pt care this am, pain is managed with medications, partial relief is noted. came today to visit, pt had refused PT in the pm, feel they are pushing too hard and he will get to where he needs to be when he is ready. Stump dressing is c/d/i, blood sugars done with medication given as per emar. On tele, running SR to . [facility] followed with no signs or verbalizations of distress noted. Report given to the [address] [place] [address] nurse, pt went up with IV as per request. Carvedilol not given, d/t bp being low. Pt is now transferred to [address] [place] [address] room 514
--- NOTE | 2020-03-26 08:07 | HC ---
[facility] [place] [address] CONSULTATION Name: GLAYDS VILLATORO Room #: 458-P [facility] IN M.R.#: [id number] Admission: 03/13/20 Attend Phys: Amilcar Lira MD Discharge: 03/20/20 Date of : 55 Report #: [id number] THIS REPORT FOR: cc: Manish Guevara MD,Karthikeyan Lopez MD, MD ~ CC: Manish Lira DATE OF SERVICE: 03/14/2020 WOUND CARE CONSULTATION PERSONAL PHYSICIAN: Manish Guevara. CHIEF COMPLAINT: Left heel ulcer. HISTORY OF PRESENT ILLNESS: This is a 64-year-old white male with longstanding history of diabetes and rheumatoid arthritis. The patient has been followed by my partner, Dr. Carlton in the outpatient wound clinic for ulcers on bilateral heels. The right of which is a dry eschar and scabbed over, the left is an open draining wound. The patient states this past week the wound started having increased odor, drainage and pain, which prompted him to come to the Emergency Department yesterday afternoon and to be admitted to the hospital for cellulitis of the left heel with suspected osteomyelitis. Orthopedic Surgery has already been consulted to see the patient and an MRI is chronic pending. The patient states that he had no fevers or chills as an outpatient. The patient had been on a course of oral doxycycline, but this did not seem to do anything for his heel. The patient states his right heel has been stable with a dry eschar. The patient denies any other associated wounds. PAST MEDICAL HISTORY: Significant for rheumatoid arthritis with immunosuppression, diabetes, previous toe amputations. CURRENT MEDICATIONS: Multiple, I reviewed the patient's medication list. DRUG ALLERGIES: CIPRO. SOCIAL HISTORY: The patient smokes approximately one-half pack of cigarettes daily, has social alcohol use. FAMILY HISTORY: Not pertinent to current medical condition. REVIEW OF SYSTEMS: CONSTITUTIONAL: The patient denies fevers or chills. NEUROLOGIC: The patient denies numbness, tingling, weakness in arms or legs. [facility] [address] [place] [address] CONSULTATION Name: GLADYS VILLATORO Room #: 458-P [facility] IN M.R.#: [id number] Admission: 03/13/20 Attend Phys: Amilcar Lira MD Discharge: 03/20/20 Date of : 55 Report #: [id number] EYES: No complaints. ENT: No complaints. CARDIAC: The patient has chronic lower extremity edema, but no chest pain or palpitation. RESPIRATORY: The patient denies shortness of breath, cough or wheezes. GASTROINTESTINAL: The patient denies nausea, vomiting or abdominal pain. GENITOURINARY: The patient denies urgency or frequency. MUSCULOSKELETAL: No complaints. SKIN: The patient has chronic ulcerations on the left and right heel. PHYSICAL EXAMINATION: VITAL SIGNS: Temperature 36.7, pulse 102, respirations 18, BP 106/71. GENERAL: This is an alert and oriented x 3, pleasant white male who is chronically ill appearing. HEENT: Normocephalic, atraumatic. Mucous membranes are dry. Pupils are round. Sclerae white. NECK: Supple, nontender. LUNGS: Clear. HEART: Regular. ABDOMEN: Soft, nontender. EXTREMITIES: Evaluation of bilateral lower extremity reveals 1-2+ edema with faint distal pulses. Right heel has a dry and intact eschar without signs of infection. No involvement of deeper structures. Evaluation of left heel reveals a necrotic malodorous ulceration with a palpable calcaneal bone. There is copious amounts of foul-smelling brown drainage. Periwound is erythematous, warm to touch. There is no significant tunneling. Rest of the left foot is without open ulcerations. NEUROLOGIC: Cranial nerves 2-12 grossly intact. Motor and sensory grossly intact. LABORATORY VALUES: White count 17.8, hemoglobin 10.9, hemoglobin A1c is 7.6, albumin 2.2. Plain x-ray of the left foot shows subtle lucency along the anterior aspect of the calcaneus, concerning for osteomyelitis. IMPRESSION: 1. Chronic ulceration, left heel, now with cellulitis and concern for underlying osteomyelitis. 2. Chronic ulcer, right heel, unstageable. 3. Diabetes mellitus. 4. Rheumatoid arthritis with immunosuppression. 5. Protein-calorie malnutrition -- severe with albumin of 2.2. 6. Generalized debility. PLAN: At this time, we will use Dakin's wet to dry dressings to the left heel, cover with ABD and change twice daily. Orthopedic Surgery has been consulted. We are awaiting the MRI results at this time. I have talked to the patient [address] [place] [address] CONSULTATION Name: GLADYS VILLATORO Room #: 458-P [facility] IN ..#: [id number] Admission: 03/13/20 Attend Phys: Amilcar Lira MD Discharge: 03/20/20 Date of : 55 Report #: [id number] about the potential that he might need an at least a partial calcanectomy if not a [id number] amputation depending on what the MRI shows. We will continue Betadine to the right heel with heel protection at all times. We will maximize patient's oral protein supplementation for continued healing. We will utilize physical and occupational therapies for strengthening as able. Continue IV antibiotics as well as all other current medications at this time. I appreciate ability to consult. <ELECTRONICALLY SIGNED> By: Karthikeyan London MD 03/26/20 0807 1302 1600 Karthikeyan London MD /nt
== END 2020-03-20 18:39 | DRG 853 ==
LOC: ER 11:47 → 4W 14:37 → EROBS 14:37 → 4W 15:40
PROVIDERS: Nurse Practitioner; Nurse Practitioner Family; Physician Assistant; ADMIT Internal Medicine; ATTEND Internal Medicine
PROC: 0Y6J0Z1 Detachment at Left Lower Leg, High, Open Approach (ICD-10-PCS; principal; 2020-03-17)
DX: A41.9 Sepsis, unspecified organism (principal); E43 Unspecified severe protein-calorie malnutrition; M86.8X8 Other osteomyelitis, other site; L97.429 Non-pressure chronic ulcer of left heel and midfoot with unspecified severity; L03.116 Cellulitis of left lower limb; M31.9 Necrotizing vasculopathy, unspecified; E11.52 Type 2 diabetes mellitus with diabetic peripheral angiopathy with gangrene; I96 Gangrene, not elsewhere classified; E11.69 Type 2 diabetes mellitus with other specified complication; I50.9 Heart failure, unspecified; M06.9 Rheumatoid arthritis, unspecified; F17.210 Nicotine dependence, cigarettes, uncomplicated; E11.42 Type 2 diabetes mellitus with diabetic polyneuropathy; E78.5 Hyperlipidemia, unspecified; E11.51 Type 2 diabetes mellitus with diabetic peripheral angiopathy without gangrene; E11.622 Type 2 diabetes mellitus with other skin ulcer; I11.0 Hypertensive heart disease with heart failure; E66.9 Obesity, unspecified; L89.620 Pressure ulcer of left heel, unstageable; Z20.828 Contact with and (suspected) exposure to other viral communicable diseases; L89.610 Pressure ulcer of right heel, unstageable; I49.3 Ventricular premature depolarization; Z88.1 Allergy status to other antibiotic agents; Z90.49 Acquired absence of other specified parts of digestive tract; Z93.3 Colostomy status; Z68.29 Body mass index [BMI] 29.0-29.9, adult; Z89.411 Acquired absence of right great toe; Z71.6 Tobacco abuse counseling
CPT/HCPCS: 10045; 10047; 50010; 50101; 50386; 51771; 53000; 56524; 56528; 57091; 57103; 62110; 62900; 70005

== ENCOUNTER 2020-03-20 16:35 | Inpatient (IN) | payer BC, OTHER ==
[~2020-03-20] VITALS: Ht 182.9 cm; Wt 113.4 kg
[~2020-03-20 16:35] MED LIST: ANTIVERT25 MG PO; ASA81BEC PO; CELEBREX 200 M200 M1 PO; CILOSTAZOL 100100 MG PO; COREG6.25 MG PO; FOLIC ACID1 MG PO; GEMFIBROZIL 60600 M1 PO; METHOTREXA1 GM/40 M2 IM; NEURONTIN600 MG PO; NORCO 5-325 TA1 EAC1 PO; NOVOLIN R100 UNIT/2 SUBQ; ONDANSETRON HCL4 M2 PO; ZYRTEC10 M5 PO
[2020-03-20] MEDS ORDERED: NOVOLOG100 UNIT/1 SUBQ (17:29)
[2020-03-20] MEDS ORDERED: METRONIDAZOLE500 M4 IV (17:29)
[2020-03-20] MEDS ORDERED: HEPARIN SO5000 UNIT/ SUBQ (17:29)
[2020-03-20] MEDS ORDERED: LIDOPATCH1 EACH TRANSDERM (17:29)
[2020-03-20] MEDS ORDERED: PROTONIX40 M1 PO (17:29)
[2020-03-20] MEDS ORDERED: TRADJENTA5 MG PO (17:29)
[2020-03-20] MEDS ORDERED: VANCOMYCIN HCL1 G1 IV (17:29)
[2020-03-20] MEDS ORDERED: ALTACE5 MG PO (17:29)
[2020-03-20] MEDS ORDERED: CEFEPIME 1 GM VI1 G2 INJECTION (17:29)
[2020-03-20] MEDS ORDERED: PERCOCET PO (17:30)
[2020-03-20 18:45] VITALS: BP 99/61
--- NOTE | 2020-03-20 19:20 | NUR ---
PT ARRIVED AT 1845 FROM 4W. TRANSFERRED TO BED WITH 2 ASSIST AND SLIDE BOARD. VITALS TAKEN. REPORT GIVEN TO ONCOMING RN. FALL PRECAUTIONS IN PLACE
[2020-03-20 20:00] VITALS: BP 91/61
--- NOTE | 2020-03-21 04:59 | NUR ---
RECIEVED CARE OF THIS PATIENT AT 1900. PATIENT ALERT AND ORIENTED X4. UP WITH MAX OF TWO AND SLIDING BOARD. IV IN LFA PATENT. SLEPT MOST OF THE NIGHT. ACCUCHECK WAS 144, NO COVERAGE ORDERED. HAS RANDAL WRAP ON L LOWER EXT AMPUTATION.
[2020-03-21 05:37] LABS: HEMATOCRIT 32.5 % (42.0-52.0); HEMOGLOBIN 10.3 gm/dL (14.0-18.0); MCH 28.3 pg (26.0-34.0); MCHC 31.6 g/dL (28.0-37.0); MCV 89.5 fL (80.0-100.0); RBC 3.63 mil/uL (4.50-6.00); RDW 16.5 % (10.5-14.5); WBC 17.5 thou/uL (4.0-11.0)
[2020-03-21 05:51] LABS: CREATININE 1.7 mg/dL (0.7-1.3); POTASSIUM 4.2 mmol/L (3.5-5.1)
[2020-03-21 07:40] VITALS: BP 113/77
--- NOTE | 2020-03-21 09:10 | NUR ---
chart review, cm visit with pt. intro to cm, team meeting and dcp. he reported " lives with , just retired. no steps to enter through the back. he has a cane, had wound care here in past. daughter can help out if needed. was independent prior to hospital. manage own medication and drives vehicle. will cont following as needed for dc needs.
--- NOTE | 2020-03-21 11:46 | NUR ---
Nutrition: Vitamin D 24.8, borderline low. Consider supplementation.
--- NOTE | 2020-03-21 15:46 | NUR ---
ASSUMED CARES AT 0700. PT AWAKE, ALERT AND ORIENTED*4. HR ELEVATED. PAIN C/O PHANTOM PAIN IN LLE, PAIN MEDICATION ADMINISTERED NEEDED. ALL OTHER VITALS STABLE. ABDOMEN SOFT BUT DISTENDED, *1 LG BM, BS ACTIVE *4. LEFT BKA INCISION CLEANED AND DRESSING CHANGED. PT FITTED FOR AMPUSHIELD TODAY, THE WILL DELIVER LATER. HYPERVENTILATION NOTED WITH ACTIVITY, PT ANXIOUS REGARDING GETTING UP AND TRANSFERS. UP WITH MAX ASSIST 2-3. IV ON LEFT FOREARM REMAINS INTACT, ANTIBIOTICS ADMINISTERED ORDERED. Q1H VISUAL CHECKS. CALL LIGHT WITHIN REACH. FALL PRECAUTIONS IN PLACE
[2020-03-21 19:40] VITALS: BP 96/58
--- NOTE | 2020-03-22 05:32 | NUR ---
ASSUMED CARE AT 1900. PT REPORTS PAIN IN LEFT LEG R/T BKA. STAYED IN [facility] FOR A FEW HOURS AFTER GETTING IN BED, BUT TOOK OFF AROUND 0100. DENIES NAUSEA. HAD A MEDIUM BM. USED SLIDE BOARD TO TRANSFER FROM W/C TO BED AND FROM BED TO BSC. C/O SOB AFTER USING BSC, OBTAINED ORDER FOR PRN RT TREATMENT. PRAFO BOOT ON RIGHT FOOT WHILE IN BED. NO OTHER CONCERNS, WILL CONTINUE TO MONITOR.
[2020-03-22 07:45] VITALS: BP 115/72
--- NOTE | 2020-03-22 12:47 | NUR ---
PT'S DAUGHTER DELIVERED DONATED WC TO PT THIS DATE. OT RETRIEVED WC FROM ER AND LABELED WITH PT'S NAME. WC HAS FOOT PLATES, NOT ELEVATING LEG RESTS SO OT RECOMMENDED TO PT AND THAT PT CONTINUE TO USE WC PROVIDED BY [facility] AND WORK WITH THERAPY TO ORDER CUSTOM WC PRIOR TO DC. PT/ VERBALIZED UNDERSTANDING.
--- NOTE | 2020-03-22 16:20 | NUR ---
ASSUMED CARE OF PT AT 0700. PT IS A&OX4. HR IRREGULAR WITH TACHYCARDIA NOTED ON ASSESSMENT, PT DENIES SYMPTOMS.PT REPORTS PAIN TO LEFT LIMB, MANAGED WITH PO MEDICAITONS. ACCU CHECKS ACHS, INSULIN SS ORDERED THIS SHIFT. WOUND TO LEFT BKA AND RIGHT HEEL DRESSINGS COMPLETED PER ORDERS. +2 PITTING EDEMA NOTED TO BILATERAL LOWER EXTREMITIES. FALL PRECAUTIONS IN PLACE AND NURSING WILL CONTINUE TO MONITOR.
[2020-03-22 20:25] VITALS: BP 108/69
--- NOTE | 2020-03-23 04:29 | NUR ---
PATIENT REFUSED BOWEL REGIMEN, REPORTS NOT HAVING CONSTIPATION. PATIENT ABLE TO USE SLIDE BOARD WITH MINIMAL ASSISTANCE. PAIN MEDICATIONS GIVEN, SEE MAR. PATIENT ABLE TO SLEEP OVERNIGHT. NO ACUTE EVENTS OVERNIGHT.
[2020-03-23 05:39] LABS: ALBUMIN 1.6 g/dL (3.4-5.0); CALCIUM 8.6 mg/dL (8.5-10.1); CREATININE 1.4 mg/dL (0.7-1.3); MAGNESIUM 1.7 mg/dL (1.8-2.4); PHOSPHORUS 2.9 mg/dL (2.5-4.9); POTASSIUM 4.2 mmol/L (3.5-5.1)
[2020-03-23 08:00] VITALS: BP 110/71
--- NOTE | 2020-03-23 15:17 | NUR ---
ASSUMED CARE OF PT AT 0700. PT IS A&OX4 AND VITAL SIGNS ARE STABLE. PT DENIES PAIN AND PARTICIPATED IN SCHEDULED THERAPIES. DRESSING TO LEFT BKA CHANGED PER ORDERS, RIGHT HEEL WOUND CLEANSED PER ORDERS AND LEFT MOLDER INFLATED BALL. IV TO LEFT FOREARM REMOVED IT IS NO LONGER NEEDED. ACCU CHECKS ACHS, INSULIN ADMINISTERED PER ORDERS, PT EXPRESSED CONCERN ABOUT GOING HOME WITH INSUIN. FALL PRECAUTIONS IN PLACE AND NURSING WILL CONTINUE TO MONITOR.
[2020-03-23 20:35] VITALS: BP 103/68
--- NOTE | 2020-03-24 02:51 | NUR ---
PATIENT ASSESSED AND IS ALERT X 4. SKIN WARM AND DRY. RESP EVEN AND UNLABORED. HAS A BKA OF LLE. BRACE ON AND DRESSING DRY AND INTACT. HAS SMALL AMOUNT OF EDEMA NOTED TO LOWER EXTREMITIES. TAKES MEDS WHOLE WITH THIN LIQUIDS. PAIN MED Q 4 HOURS FOR PHAMTOM PAIN. RIGHT HEEL WOUND AND HAS A DRESSING DONE ORDERED, BUT IS OPEN TO AIR. REMAINS A FALL RISK. 1-2 PERSON ASSIST TO BATHROOM OR MAX ASSIST WITH SLIDE BOARD. ALESHIA REMAINS IN BKA SITE TO LLE.REFUSED MIRALX TONIGHT. CONT TAKING PAIN MEDS FOR PAIN IN LLE BKA. CONT PLAN OF CARE.
[2020-03-24 07:50] VITALS: BP 109/75
[2020-03-24 19:39] VITALS: BP 88/50
--- NOTE | 2020-03-24 19:47 | NUR ---
ASSUMED CARE OF PT AT 0700. PT IS A&OX4, TACHYCARDIA NOTED ON ASSESSMENT, PT DENIES SYMPTOMS. REPORTS PAIN TO LEFT LOWER EXTREMITY/BKA, MANAGED WITH PO MEDICAITONS. VISITED THIS EVENING, PARTICIPATED IN WOUND AND DIABETES EDUCATION. RIGHT HEEL WOUND CLEANED, BOARDER DRESSING PLACED OVER AREA FOR COMFORT. ACCU CHECKS ACHS. FALL PRECAUTIONS IN PLACE AND NURSING WILL CONTINUE TO MONITOR.
--- NOTE | 2020-03-25 01:36 | NUR ---
assumed care at approx 1900 evening 03/24. pt lying in bed with head of bed elevated at change of shift, alert and oriented x4 stating he was tired from therapy. left bka wrapped with ernesto bandage, reported pain relief from pain med given earlier. pt took hs meds with water tolerating well. pt voiding per urinal. appears to be sleeping soundly with hourly rounding checks. bed alarm on and call light in reach. will continue to monitor.
[2020-03-25 06:04] LABS: BASOPHILS 0.9 % (0.0-2.0); EOSINOPHILS 2.6 % (0.0-3.0); HEMATOCRIT 29.5 % (42.0-52.0); HEMOGLOBIN 9.5 gm/dL (14.0-18.0); LYMPHOCYTES 13.9 % (24.0-44.0); MCH 28.6 pg (26.0-34.0); MCHC 32.2 g/dL (28.0-37.0); MCV 88.8 fL (80.0-100.0); MONOCYTES 9.5 % (1.0-8.0); PLATELET COUNT 343 thou/uL (150-400); POLYS 73.1 % (36.0-66.0); RBC 3.32 mil/uL (4.50-6.00); RDW 17.1 % (10.5-14.5); WBC 12.4 thou/uL (4.0-11.0)
[2020-03-25 06:23] LABS: CALCIUM 9.3 mg/dL (8.5-10.1); CREATININE 1.4 mg/dL (0.7-1.3); MAGNESIUM 1.8 mg/dL (1.8-2.4); POTASSIUM 4.7 mmol/L (3.5-5.1)
[2020-03-25 07:46] VITALS: BP 109/74
[2020-03-25 08:00] VITALS: BP 109/74
--- NOTE | 2020-03-25 08:01 | NUR ---
ASSUMED CARE OF PT AT 0700. PT IS A&OX4, REPORT DIDN'T SLEEP GOOD LAST NIGHT. OK TO HAVE MELATONIN PRN. WILL TALK WITH ISA FOR ORDER. B/P 109/74, HR 105, GIVE CARVEDILOL ORDERED. PT IS WORKING WITH OT AT THIS MOMENT. REPORTS PAIN TO LEFT LOWER EXTREMITY/BKA, PRN OXYCODONE GIVEN. MANAGED WITH PO MEDICAITONS. RIGHT HEEL WOUND CLEANED, BOARDER DRESSING PLACED OVER AREA FOR COMFORT. ACCU CHECKS ACHS. BS 153 THIS AM. OFFERED SUPPORTIVE CARE. ENCOURAGED PT TO VOICE HIS NEEDS. CONTINUE TO MONITOR BS, INSULIN AND MORNING MEDS GIVEN. LEFT BKA DRESSING INTACT NOW. AMPUSHIELD APPLIED. PT TRANSFER WITH SLIDEBOARD.REASSESSMENT PER CHART. REPORTS HAD LARGE BM LAST NIGHT. HELD LISINOPRIL THIS AM. WILL ASK ISA FOR B/P PARAMETER. FALL PRECAUTIONS IN PLACE AND NURSING WILL CONTINUE TO MONITOR.
--- NOTE | 2020-03-25 12:57 | NUR ---
team meeting, recommendation: wc, leg rest and anti tippers and slide board for anticipated dme. 04/01/2020 hh ( pt, ot, nursing).
[2020-03-25 19:05] VITALS: BP 92/63
--- NOTE | 2020-03-26 00:22 | NUR ---
assumed care at approx 1900 evening 03/25. pt lying in bed with head of bed elevated at change of shift. pt alert and oriented x4, pleasant and cooperative. immobilizer off left bka and pt stated he had a good day of therapy and was tired. pt took hs meds with water tolerating well. urinal at bedside. pt given pain meds at hs and appears to be sleeping soundly with hourly rounding checks. bed alarm on and call light in reach. will continue to monitor.
[2020-03-26 08:16] VITALS: BP 95/59
--- NOTE | 2020-03-26 08:19 | NUR ---
ASSUMED CARE OF PT AT 0700. PT IS A&OX4, REPORT DIDN'T SLEEP GOOD LAST NIGHT, DIDN'T TAKE MELATONIN LAST NIGHT. ENCOURAGED PT TO TAKE TONIGHT. B/P 95/59, HR 93. ENCOURAGED PT TO DRINK MORE WATER TODAY. MORNING MEDS GIVEN ORDERED. BS 1146, NO INSULIN GIVEN. PAIN TO LEFT LOWER EXTREMITY/BKA RATES PAIN 7/10 MANAGED WITH PO MEDICAITONS. OFFERED SUPPORTIVE CARE. ENCOURAGED PT TO VOICE HIS NEEDS. LEFT BKA DRESSING INTACT AMPUSHIELD APPLIED. PT TRANSFER WITH SLIDEBOARD.REASSESSMENT PER CHART. FALL PRECAUTION IN PLACE, CALL LIGHT WITHIN REACH AND NURSING WILL CONTINUE TO MONITOR. PT IS UP IN WC EATING BREAKFAST, IN GOOD SPIRIT. HIS GOAL IS TO CONTINUE TO WORK WITH THERAPY TODAY. HE SAID HE FEELS STRONGER EACH DAY.
--- NOTE | 2020-03-26 08:49 | NUR ---
FAXED REFERRAL TO [facility] SPOKE WITH LATHA IN INTAKE SHE RECEIVED REFERRAL AND WILL ACCEPT AT DC. ANTICIPATE DC 04/01.
[2020-03-26 08:51] VITALS: BP 95/59
[2020-03-26 19:52] VITALS: BP 97/67
--- NOTE | 2020-03-27 04:32 | NUR ---
PT UP X2 TO HAVE BOWEL MOVEMENT TOLERATED WELL, RESTED WELL THROUGHOUT HOURLY ROUNDS NO CHANGE IN PT ASSESSMENT WILL CONITINUE WITH CURRENT PLAN OF CARE.
[2020-03-27 08:00] VITALS: BP 91/56
--- NOTE | 2020-03-27 10:45 | NUR ---
ASSUMED CARE AT 0700. PATIENT IS ALERT AND ORIENTED X4. PATIENT IS ANXIOUS AT TIMES. PATIENT HAS LEFT BKA. PATIENT HAS WOUND TO HIS RIGHT HEEL. PATIENT USES SLIDE BOARD FOR TRANSERS. LUNGS ARE COARSE WITH OCCASIONAL EXP. WHEEZE. PATIENT USES URINAL TO VOID TIFFANI COLORED URINE. PATIENT IS UP IN W/C FOR BREAKFAST. PATIENT C/O FUNNY FEELING IN MID CHEST AREA. ADJUNCT MATHEMATICS INSTRUCTOR NOTIFIED. PATIENT ASSISTED BACK TO BED AND EKG WAS ORDERED. PATIENT BP 90'S. FALL AND SAFETY PROTOCOLS IN PLACE. C/O LEFT STUMP INCISIONAL PAIN. MEDICATED WITH PRN PAIN MEDS. CONTINUES TO PROGRESS SLOWLY TOWARDS D/C GOALS. WILL CONTINUE TO MONITER.
--- NOTE | 2020-03-27 11:46 | NUR ---
FAXED REFERRAL TO [facility] FOR A WHEELCHAIR RECEIVED CONFIRMATION AND LEFT MSG WITH INTAKE PT DC 04/01.
[2020-03-27 15:26] LABS: URINE BILIRUBIN NEGATIVE (Negative); URINE BLOOD NEGATIVE (Negative); URINE CLARITY CLEAR; URINE COLOR YELLOW; URINE GLUCOSE-RANDOM* NEGATIVE (Negative); URINE KETONES NEGATIVE (Negative); URINE LEUKOCYTES-REFLEX NEGATIVE (Negative); URINE NITRITE-REFLEX NEGATIVE (Negative); URINE PROTEIN (DIPSTICK) NEGATIVE (Negative); URINE UROBILINOGEN 0.2 E.U./dl (0.2-1.0)
--- NOTE | 2020-03-27 16:46 | EKG ---
[facility] [place] [address] ELECTROCARDIOGRAM REPORT Name: GLADYS VILLATORO Room #: [facility] ADM IN M.R.#: [id number] Admission: 03/20/20 Attend Phys: Vinny Joseph MD Discharge: Date of : 55 Report #: [id number] THIS REPORT FOR: cc: Manish Guevara MD, John MD Lundgren,Jean Claude Bartlett MD [facility] ~ THIS REPORT FOR: //name// [facility] Test Date: 2020-03-27 Test Time: 09:17:02 Pat Name: GLADYS VILLATORO Department: Room: [facility] Gender: M Balancer: [facility] : 1955 Requested By: Eva Sandoval Order Number: [id number] MD: Jean Claude Fernando Measurements Intervals [place] Rate: 94 P: -52 [place]: 182 QRS: 149 QRSD: 128 T: 21 QT: 366 QTc: 458 Interpretive Statements Possible limb lead reversal Sinus or ectopic atrial rhythm Multiple ventricular premature complexes Nonspecific intraventricular conduction delay Poor R wave progression Compared to ECG 03/15/2020 01:08:47 No significant change was found Electronically Signed On 03-27-2020 16:45:42 CDT by Jean Claude Fernando [email or web address] <ELECTRONICALLY SIGNED> By: Jean Claude Fernanod MD, [facility] 03/27/20 1645 6 6 Jean Claude Fernando MD, [facility] /EPI
[2020-03-27 20:15] VITALS: BP 89/64
--- NOTE | 2020-03-28 02:23 | NUR ---
SLIDING BOARD TO AND FROM AND TO WIDE STOOL RISER FOR VOID AND BM ATTEMPT. MEDS AT HS WITH SIPS OF ICED TEA. DRINKING WATER NOW, PREFERS TO SKIP TONIGHT'S SSI SINCE BLOOD SUGAR BARELY GREATER THAN 150
[2020-03-28 05:24] LABS: CALCIUM 9.3 mg/dL (8.5-10.1); CREATININE 1.3 mg/dL (0.7-1.3); MAGNESIUM 1.8 mg/dL (1.8-2.4); POTASSIUM 5.3 mmol/L (3.5-5.1)
[2020-03-28 05:56] LABS: BASOPHILS 0.8 % (0.0-2.0); EOSINOPHILS 3.1 % (0.0-3.0); HEMATOCRIT 32.1 % (42.0-52.0); HEMOGLOBIN 10.2 gm/dL (14.0-18.0); LYMPHOCYTES 19.6 % (24.0-44.0); MCH 28.7 pg (26.0-34.0); MCHC 31.9 g/dL (28.0-37.0); MONOCYTES 11.3 % (1.0-8.0); PLATELET COUNT 310 thou/uL (150-400); POLYS 65.2 % (36.0-66.0); RBC 3.57 mil/uL (4.50-6.00); RDW 17.5 % (10.5-14.5); WBC 9.1 thou/uL (4.0-11.0)
[2020-03-28 08:09] VITALS: BP 80/51
--- NOTE | 2020-03-28 11:11 | NUR ---
ASSUMED CARE AT 0700. PATIENT IS ALERT AND ORIENTED X4. PATIENT HAS LEFT BKA, AND RIGHT HEEL WOUND. LUNGS ARE CLEAR AND DEMINISHED. ABD IS SOFT WITH BSX4. UP DTO THE BATHROOM TO VOID TIFFANI COLORED URINE. PATIENT USES SLIDE BOARD FOR TRANSFERS FROM BED TO W/C. DRESSING CHANGED TDO LEFT BKA. FALL AND SAFETY PROTOCOLS IN PLACE. C/O PAIN IN HIS RIGHT LEG. MEDICATED WITH PRN PAIN MED. CONTINUES TO PROGRESS SLOWLY TOWARDS D/C GOALS. PATIENT SEEN BY CARDIOLOGY AND 2ND EKG ORDERED. PLAN FOR FURTHER CARDIAC STUDIES NEXT WEEK. WILL CONTINUE TO MONITER.
--- NOTE | 2020-03-28 14:08 | EKG ---
[facility] [place] [address] ELECTROCARDIOGRAM REPORT Name: GLADYS VILLATORO Room #: [facility]- ADM IN M.R.#: [id number] Admission: 03/20/20 Attend Phys: Vinny Joseph MD Discharge: Date of : 55 Report #: [id number] THIS REPORT FOR: cc: Manish Guevara MD, John MD Couchonnal,Mohit Lopez MD ~ THIS REPORT FOR: //name// [facility] Test Date: 2020-03-28 Test Time: 10:33:16 Pat Name: GLADYS VILLATORO Department: Room: [facility] Gender: M Physiotherapy Aide: Mitch GHOTRA : 1955 Requested By: Nicki Pires Order Number: [id number] : Mohit Arias Measurements Intervals [place] Rate: 91 P: 1 NV: 192 QRS: 66 QRSD: 126 T: 61 QT: 363 QTc: 447 Interpretive Statements Sinus rhythm Multiple ventricular premature complexes IVCD, consider atypical LBBB Baseline wander in lead(s) V5 Compared to ECG 03/27/2020 09:17:02 Ectopic atrial rhythm no longer present Poor R-wave progression no longer present Electronically Signed On 03-28-2020 14:07:20 CDT by Mohit Arias [email or web address] <ELECTRONICALLY SIGNED> By: Mohit Arias MD 03/28/20 1407 1033 1033 Mohit Arias MD /EPI
[2020-03-28 20:15] VITALS: BP 106/65
--- NOTE | 2020-03-29 02:55 | NUR ---
DOING VERY WELL UP TO W/C AND STOOL RISER USING SLIDING BOARD WITH STANDBY ASSIST ONLY. BLOOD GLUCOSE OF 147 AT HS SO NOT NEEDING SSI. STATES HAD BRIEF EPISODE OF ANXIETY AND TROUBLE BREATHING THAT WENT AWAY BY ITSELF IN LESS THAN 5 MINUTES.
[2020-03-29 08:00] VITALS: BP 108/72
--- NOTE | 2020-03-29 08:48 | NUR ---
ASSUMED CARE AT 0700. PATIENT IS ALERT AND ORIENTED X4. REPORTS SLEPT SOME BUT UP AT 2:30PM. ENCOURAGED PT TO TAKE PRN MELATONIN TONIGHT. PATIENT HAS LEFT BKA, DRESSING CHANGE. AND RIGHT HEEL WOUND CHANGED M/W/F. INTACT. WOUND DOCTOR CAME TO SEE PT THIS AM. LUNGS ARE CLEAR AND DIMINISHED, HAS NO PRODUCTIVE COUGH. ABD IS SOFT WITH BSX4. LAST BM WAS YESTERDAY ON COLACE DAILY. UP TO THE BATHROOM TO VOID TIFFANI COLORED URINE. PATIENT USES SLIDE BOARD FOR TRANSFERS FROM BED TO W/C. FALL AND SAFETY PROTOCOLS IN PLACE. C/O PAIN IN LEFT BKA LEG 04/11, MEDICATED WITH PRN PAIN MED. HE SAID IT GETS BETTER NOW. CONTINUES TO PROGRESS SLOWLY TOWARDS D/C GOALS.
[2020-03-29 15:28] LABS: HEMATOCRIT 31.5 % (42.0-52.0); HEMOGLOBIN 10.2 gm/dL (14.0-18.0); MCH 28.8 pg (26.0-34.0); MCHC 32.3 g/dL (28.0-37.0); MCV 89.3 fL (80.0-100.0); RBC 3.53 mil/uL (4.50-6.00); RDW 18.2 % (10.5-14.5); WBC 9.1 thou/uL (4.0-11.0)
[2020-03-29 15:41] LABS: CALCIUM 9.2 mg/dL (8.5-10.1); CREATININE 1.3 mg/dL (0.7-1.3); MAGNESIUM 1.5 mg/dL (1.8-2.4)
[2020-03-29 19:00] VITALS: BP 109/71
--- NOTE | 2020-03-30 00:26 | NUR ---
PT TRANSFERRING FROM BED TO WHEELCHAIR WITH SLIDE BOARD AND STANDBY ASSIST AND IS TOLERATING FAIR. PERCOCET PROVIDING PAIN RELIEF. RESTING COMFORTABLY. NO NEEDS VOICED. CALL LIGHT WITHIN REACH. FREQUENT OBSERVATION.
[2020-03-30 05:42] LABS: ABSOLUTE NEUTROPHILS 5.8 thou/uL (1.4-8.2); BASOPHILS 1.1 % (0.0-2.0); EOSINOPHILS 3.3 % (0.0-3.0); HEMATOCRIT 33.5 % (42.0-52.0); HEMOGLOBIN 10.7 gm/dL (14.0-18.0); LYMPHOCYTES 19.1 % (24.0-44.0); MCH 28.7 pg (26.0-34.0); MCV 89.9 fL (80.0-100.0); MONOCYTES 10.1 % (1.0-8.0); PLATELET COUNT 288 thou/uL (150-400); POLYS 66.4 % (36.0-66.0); RBC 3.73 mil/uL (4.50-6.00); RDW 18.4 % (10.5-14.5); WBC 8.7 thou/uL (4.0-11.0)
[2020-03-30 05:53] LABS: CALCIUM 9.6 mg/dL (8.5-10.1); CREATININE 1.2 mg/dL (0.7-1.3); MAGNESIUM 1.6 mg/dL (1.8-2.4); POTASSIUM 4.9 mmol/L (3.5-5.1)
[2020-03-30 08:00] VITALS: BP 109/74
--- NOTE | 2020-03-30 13:33 | HC ---
[facility] [place] [address] CONSULTATION Name: GLADYS VILLATORO Room #: 504-1 ADM IN M.R.#: [id number] Admission: 03/20/20 Attend Phys: Vinny Joseph MD Discharge: Date of : 55 Report #: [id number] THIS REPORT FOR: cc: Manish Guevara MD,Manish Hudson,Juancarlos Wilson. PhD ~ CC: Vinny Guevara DATE OF SERVICE: 03/22/2020 NEUROBEHAVIORAL STATUS EXAM ATTENDING PHYSICIAN: Vinny Joseph MD SALES MANAGER [employer]: Juancarlos Hudson, PhD CLINICAL PRESENTATION: The patient is a 64-year-old male admitted to the rehabilitation unit at [facility] following a left swhhh-rza-hqeb amputation. The patient had carried a diagnosis of osteomyelitis of the heel with sepsis. His diagnosis also includes sinus tachycardia, type 2 diabetes mellitus, congestive heart failure, peripheral neuropathy, RA, PCM, and tobacco abuse. A complete description of his medical condition and history can be found in his medical record. Neuropsychological consultation was requested to provide assistance in the assessment of cognitive and emotional status and provide recommendations and services. Prior to this most recent admission, the patient was living independently at home with his . He reports having been independent with instrumental activities of daily living. He has 2 children. 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 He completed a GED. TECHNIQUES UTILIZED: Clinical interview, review of medical records, staff consultation and behavioral observation, mini mental status exam 2 standard version and family interview -- . EXAMINATION FINDINGS: The patient was alert and cooperative with the assessment. He accurately described events surrounding his admission. There is no evidence of aphasia. His thoughts are logical and goal oriented. There is no evidence of thought disorder. He describes phantom limb pain. He does not report a prior history of treatment for depression. Increased anxiety is noted as a result of some social environmental stressors. He is worried about the wellbeing of his granddaughter. Apparently, the father of his granddaughter's child was involved in a homicide having killed an individual in a drug exchange. [facility] [address] [place] [address] CONSULTATION Name: GLADYS VILLATORO Room #: 504-1 ADM IN M.R.#: [id number] Admission: 03/20/20 Attend Phys: Vinny Joseph MD Discharge: Date of : 55 Report #: [id number] The patient did not report difficulty with memory, appetite, poor word finding. His does not indicate him having any problems with cognition, however, is aware of increased emotional reactivity given concern about the granddaughter's well-being. His performance on the MMSE 2 brief version is within normal limits with a raw score of 14 of 16. The patient was 3/3 for initial registration, 5/5 for orientation to time, 4/[address] and 2/3 for immediate recall of 3 items after a brief time delay and distraction. The patient performed in the borderline range of the MMSE 2 standard version with a raw score of 23 of 30 which is a T score of 32 and percentile rank of 4. The patient was 1/5 for serial sevens, 2/2 for naming, 1/1 for repetition, 3/3 for comprehension. He could read and follow single command and write a sentence. The patient had some difficulty with copying a simple geometric design. The patient may be presenting with subtle issues of cognitive disorder, primarily deficits appear associated with difficulty in concentration along with current symptoms of anxiety, which may be interfering with overall performance. DIAGNOSTIC IMPRESSION: 1. Unspecified anxiety disorder with depressed mood. 2. 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 RECOMMENDATIONS: The patient will likely benefit from the use of relaxation strategies to assist in the management of anxiety. He may require assistance from his in the management of medication to ensure that no errors were made upon his return home. Complementing his performance in therapies, use or relaxation strategies along with support and reassurance will assist in his overall adjustment. Encouragement to maintain activity and engagement in his rehabilitation program. Redirection of attention to his rehabilitation needs may be necessary if becomes distracted with environmental stress. Thank you very much for allowing me to provide the consultation on this patient. <ELECTRONICALLY SIGNED> By: Juancarlos Hudson, PhD 03/30/20 1333 1727 1844 Juancarlos Hudson, PhD /nt
--- NOTE | 2020-03-30 18:22 | NUR ---
ASSUMED CARE OF PT AT 0700. PT IS A&OX4 AND VITAL SIGNS ARE STABLE. PT REPORTS PAIN TO LEFT LIMB, MANAGED WITH PO MEDICAITONS. DRESSING TO BKA COMPLETED THIS SHIFT BY WOUND DOCTOR, NURSE CHANGED DRESSING TO RIGHT HEEL. AT BEDSIDE MOST OF SHIFT. ACCU CHECKS ACHS AND MANGED WITH PO MEDICAITONS AND INSULIN PER ORDERS. IV STARTED TO RIGHT WRIST FOR IV MAGNESIUM INFUSION. DISCUSSED WITH PT AND DIABETES MANAGEMENT AT HOME. PT REPORTS THAT HE MANAGES HIS DIABETES AND CHECKS HIS BLOOD GLUCOSE. PT WAS INSTRUCTED TO CALL PRIOR TO MEALS FOR BLOOD GLUCOSE CHECKS, BUT FAILED TO DO SO AT BOTH LUNCH AND DINNER. WILL CONTINUE TO ENCOURAGE PT TO CALL FOR BLOOD GLUCOSE CHECKS. FALL PRECAUTIONS IN PLACE AND NURSING WILL CONTINUE TO MONITOR.
[2020-03-30 19:10] VITALS: BP 106/64
--- NOTE | 2020-03-31 02:27 | NUR ---
PT ASSESSMENT COMPLETED AND VSS. MEDS GIVEN ORDERED AND WELL TOLERATED. FALL PRECAUTIONS IN PLACE. UP TO THE BATHROOM USING SLIDE BOARD. GAIT BELT ON. PT USING THE SLIDE BOARD WELL AND WAS VERY SAFE. PT LEGS ELEVATED ON PILLOWS. ABRAHAM LEG DRESSING DRY AND INTACT. INSULIN GIVEN ORDERED. SLEEPING WELL. WILL CONTINUE TO MONITOR FREQUENTLY.
[2020-03-31 08:00] VITALS: BP 98/69
--- NOTE | 2020-03-31 13:54 | NUR ---
cm faxed up dated progress notes to [facility] rt pt need for use of slide board and wheel chair for dc on . [facility] is suppose to deliver dme equip today prior to pt dc home tomorrow on with isael day.
--- NOTE | 2020-03-31 16:28 | NUR ---
ASSUMED CARE OF PT AT 0700. PT IS A&OX4. BLOOD PRESSURE LOW THIS AM, PT DENIES ANY SYMPTOMS OF HYPOTENSION. WOUNDS TO RIGHT HEEL AND LEFT BKA CHANGED PER ORDERS. PAIN TO LLE REPORTED AND MANAGED WITH PO MEDCATIONS. ACCU CHECKS ACHS. CRACKLES NOTED IN LEFT LOWER LOBE THIS SHIFT, CHEST X-RAY ORDERED, NO NEW ORDERS. EDEMA +3 TO RLE NOTED, LEG ELEVATED WHEN IN BED. PTS STATES THAT SHE WILL ASSIST WITH MANAGING PTS DIABETES. FALL PRECAUTIONS IN PLACE AND NURSING WILL CONTINUE TO MONITOR.
[2020-03-31 20:00] VITALS: BP 112/76
--- NOTE | 2020-04-01 02:21 | NUR ---
assumed care at approx 1900 evening 03/31. pt alert and oriented x4 pleasant and cooperative. pt stated he was looking forward to discharge. pt transferred via slideboard to w/c tolerating well. pt had large bm earlier in evening. pt given pain pills as ordered and appears to be sleeping soundly with hourly rounding. bed alarm on and call light in reach. will continue to monitor.
[2020-04-01 07:45] VITALS: BP 104/71
--- NOTE | 2020-04-01 07:49 | NUR ---
ASSUMED CARE AT 0700. PATIENT IS ALERT AND ORIENTED X4. PATIENT IS UP IN W/C VIA SLIDE BOARD. PATIENT COMMUNITY LEADER ARE EQUAL. LUNGS ARE CLEAR AND DEMINISHED. PATIENT CONTINUES ON RESPIRATORY TX. ABD IS SOFT WITH BSX4. PATIENT HAD BM YESTERDAY. FALL AND SAFETY PROTOCOLS IN PLACE. C/O PAIN IN HIS LEFT FOOT AND RIGHT STUMP. DRESSING TO RIGHT STUMP CHANGED. ALESHIA INTACT. WILL CONTINUE TO MONITER.
[2020-04-01] MEDS ORDERED: VITAMIN D325 MCG PO (08:26)
[2020-04-01] MEDS ORDERED: MELATONIN5 M1 PO (08:26)
[2020-04-01] MEDS ORDERED: TRADJENTA5 MG PO (08:26)
[2020-04-01] MEDS ORDERED: VITAMIN B-12500 MCG PO (08:26)
[2020-04-01] MEDS ORDERED: COLACE100 MG PO (08:26)
[2020-04-01] MEDS ORDERED: LISINOPRIL2.5 MG PO (08:26)
[2020-04-01] MEDS ORDERED: COREG3.125 MG PO (08:26)
[2020-04-01] MEDS ORDERED: LIDOPATCH1 EACH TRANSDERM (08:26)
[2020-04-01] MEDS ORDERED: PERCOCET PO (08:30)
[2020-04-01 10:13] VITALS: BP 95/59
--- NOTE | 2020-04-01 10:17 | NUR ---
wheel chair from [facility] was delivered yesterday but not the slide board. pt going to borrow 5n slide for dc home today and then bring it back once [facility] delivers the slide board to pt home. isael figueroa will be follow at home.
[2020-04-01 11:21] VITALS: BP 95/59
[2020-04-01 11:30] VITALS: BP 95/59
[2020-04-01 11:38] VITALS: BP 95/59
--- NOTE | 2020-04-01 12:11 | NUR ---
DISCHARGE INSTRUCTIONS GIVEN TO AND PATIENT. BOTH VERBALIZED UNDERSTANDING OF D/C INSTRUCTIONS. PATIENT LEFT UNIT WITH ALL OF HIS BELONGINGS. PATIENT LEFT VIA W/C WITH IN ATTENDENCE. MEDS SENT TO [facility]. W/C , & SLIDING BOARD SENT HOME WITH PATIENT. PATIENT WAS ABLE TO TRANSFER HIMSELF FROM W/C TO HIS [facility] WITHOUT DIFFICULTY. OUTPT THERAPY AND HHN TO SEE PATIENT IN A.M.
== END 2020-04-01 12:17 | disposition home health service (06) | DRG 539 ==
PROVIDERS: Internal Medicine; Nurse Practitioner; Nurse Practitioner Family; ADMIT Physical Medicine & Rehabilitation; ATTEND Physical Medicine & Rehabilitation
DX: M86.8X6 Other osteomyelitis, lower leg (principal); A41.9 Sepsis, unspecified organism; E43 Unspecified severe protein-calorie malnutrition; N17.9 Acute kidney failure, unspecified; E11.52 Type 2 diabetes mellitus with diabetic peripheral angiopathy with gangrene; I96 Gangrene, not elsewhere classified; I13.0 Hypertensive heart and chronic kidney disease with heart failure and stage 1 through stage 4 chronic kidney disease, or unspecified chronic kidney disease; I50.9 Heart failure, unspecified; F17.210 Nicotine dependence, cigarettes, uncomplicated; E11.69 Type 2 diabetes mellitus with other specified complication; E11.42 Type 2 diabetes mellitus with diabetic polyneuropathy; F41.8 Other specified anxiety disorders; M06.9 Rheumatoid arthritis, unspecified; F41.9 Anxiety disorder, unspecified; F32.9 Major depressive disorder, single episode, unspecified; N18.9 Chronic kidney disease, unspecified; E55.9 Vitamin D deficiency, unspecified; E53.8 Deficiency of other specified B group vitamins; E78.5 Hyperlipidemia, unspecified; L89.620 Pressure ulcer of left heel, unstageable; L89.610 Pressure ulcer of right heel, unstageable; R39.15 Urgency of urination; E11.22 Type 2 diabetes mellitus with diabetic chronic kidney disease; I95.89 Other hypotension; E87.5 Hyperkalemia; I49.3 Ventricular premature depolarization; Z71.6 Tobacco abuse counseling; Z90.49 Acquired absence of other specified parts of digestive tract; Z88.1 Allergy status to other antibiotic agents; Z89.411 Acquired absence of right great toe; Z68.33 Body mass index [BMI] 33.0-33.9, adult; Z93.3 Colostomy status; Z79.899 Other long term (current) drug therapy
CPT/HCPCS: 10112

== ENCOUNTER → 2020-04-08 | Outpatient (CLI) | payer BC, OTHER ==
[~2020-04-08] MED LIST changes: +ALTACE5 MG PO; +CEFEPIME 1 GM VI1 G2 INJECTION; +COLACE100 MG PO; +COREG3.125 MG PO; +HEPARIN SO5000 UNIT/ SUBQ; +LIDOPATCH1 EACH TRANSDERM; +LISINOPRIL2.5 MG PO; +MELATONIN5 M1 PO; +METRONIDAZOLE500 M4 IV; +NOVOLOG100 UNIT/1 SUBQ; +PERCOCET PO; +PROTONIX40 M1 PO; +TRADJENTA5 MG PO; +VANCOMYCIN HCL1 G1 IV; +VITAMIN B-12500 MCG PO; +VITAMIN D325 MCG PO
== END ==
LOC: SJCVCIMAG 11:04
PROVIDERS: ATTEND Internal Medicine
DX: I48.91 Unspecified atrial fibrillation (principal); I25.10 Atherosclerotic heart disease of native coronary artery without angina pectoris; I49.3 Ventricular premature depolarization; I45.2 Bifascicular block; N17.9 Acute kidney failure, unspecified; F17.200 Nicotine dependence, unspecified, uncomplicated

== ENCOUNTER → 2020-04-14 | Outpatient (CLI) | payer OTHER | LOC: HYPER 08:32 | PROVIDERS: ATTEND Emergency Medicine Emergency Medical Services | DX: T87.89 Other complications of amputation stump (principal); E11.621 Type 2 diabetes mellitus with foot ulcer; L89.613 Pressure ulcer of right heel, stage 3; L97.411 Non-pressure chronic ulcer of right heel and midfoot limited to breakdown of skin; L89.623 Pressure ulcer of left heel, stage 3; L97.421 Non-pressure chronic ulcer of left heel and midfoot limited to breakdown of skin; E11.628 Type 2 diabetes mellitus with other skin complications; K61.1 Rectal abscess; R23.4 Changes in skin texture; L84 Corns and callosities; K43.2 Incisional hernia without obstruction or gangrene; N50.1 Vascular disorders of male genital organs; I50.9 Heart failure, unspecified; F41.9 Anxiety disorder, unspecified; F32.9 Major depressive disorder, single episode, unspecified; Z79.01 Long term (current) use of anticoagulants; Z79.4 Long term (current) use of insulin; Z79.82 Long term (current) use of aspirin; Y83.5 Amputation of limb(s) as the cause of abnormal reaction of the patient, or of later complication, without mention of misadventure at the time of the procedure ==

== ENCOUNTER → 2020-05-02 | Outpatient (CLI) | payer OTHER | LOC: HYPER 07:55 | PROVIDERS: ATTEND Emergency Medicine | DX: T87.89 Other complications of amputation stump (principal); E11.621 Type 2 diabetes mellitus with foot ulcer; L89.613 Pressure ulcer of right heel, stage 3; L97.411 Non-pressure chronic ulcer of right heel and midfoot limited to breakdown of skin; S81.811A Laceration without foreign body, right lower leg, initial encounter; S90.821A Blister (nonthermal), right foot, initial encounter; K61.1 Rectal abscess; E11.628 Type 2 diabetes mellitus with other skin complications; R23.4 Changes in skin texture; L84 Corns and callosities; K43.2 Incisional hernia without obstruction or gangrene; N50.1 Vascular disorders of male genital organs; K43.9 Ventral hernia without obstruction or gangrene; I50.9 Heart failure, unspecified; F41.9 Anxiety disorder, unspecified; F32.9 Major depressive disorder, single episode, unspecified; F17.290 Nicotine dependence, other tobacco product, uncomplicated; Z79.01 Long term (current) use of anticoagulants; Z79.4 Long term (current) use of insulin; Z89.411 Acquired absence of right great toe; X58.XXXA Exposure to other specified factors, initial encounter; Y83.5 Amputation of limb(s) as the cause of abnormal reaction of the patient, or of later complication, without mention of misadventure at the time of the procedure; Y93.89 Activity, other specified; Y92.89 Other specified places as the place of occurrence of the external cause; Y99.8 Other external cause status ==

== ENCOUNTER → 2020-05-16 | Outpatient (CLI) | payer OTHER | LOC: HYPER 08:06 | PROVIDERS: ATTEND Emergency Medicine Emergency Medical Services | DX: T87.89 Other complications of amputation stump (principal); E11.621 Type 2 diabetes mellitus with foot ulcer; L89.613 Pressure ulcer of right heel, stage 3; L97.411 Non-pressure chronic ulcer of right heel and midfoot limited to breakdown of skin; S90.821D Blister (nonthermal), right foot, subsequent encounter; E11.628 Type 2 diabetes mellitus with other skin complications; K61.1 Rectal abscess; L84 Corns and callosities; I50.9 Heart failure, unspecified; K43.2 Incisional hernia without obstruction or gangrene; K43.9 Ventral hernia without obstruction or gangrene; N50.1 Vascular disorders of male genital organs; R23.4 Changes in skin texture; F41.9 Anxiety disorder, unspecified; F17.290 Nicotine dependence, other tobacco product, uncomplicated; F32.9 Major depressive disorder, single episode, unspecified; Z79.01 Long term (current) use of anticoagulants; Z79.4 Long term (current) use of insulin; Z89.411 Acquired absence of right great toe; X58.XXXD Exposure to other specified factors, subsequent encounter; Y83.5 Amputation of limb(s) as the cause of abnormal reaction of the patient, or of later complication, without mention of misadventure at the time of the procedure ==

== ENCOUNTER → 2020-05-30 | Outpatient (CLI) | payer OTHER | LOC: HYPER 08:19 | PROVIDERS: ATTEND Emergency Medicine | DX: T87.89 Other complications of amputation stump (principal); E11.621 Type 2 diabetes mellitus with foot ulcer; L89.613 Pressure ulcer of right heel, stage 3; L97.411 Non-pressure chronic ulcer of right heel and midfoot limited to breakdown of skin; S90.821D Blister (nonthermal), right foot, subsequent encounter; L84 Corns and callosities; K61.1 Rectal abscess; R23.4 Changes in skin texture; K43.2 Incisional hernia without obstruction or gangrene; N50.1 Vascular disorders of male genital organs; I50.9 Heart failure, unspecified; K43.9 Ventral hernia without obstruction or gangrene; F41.9 Anxiety disorder, unspecified; F32.9 Major depressive disorder, single episode, unspecified; F17.290 Nicotine dependence, other tobacco product, uncomplicated; Z79.01 Long term (current) use of anticoagulants; Z79.4 Long term (current) use of insulin; Z89.411 Acquired absence of right great toe; Z79.82 Long term (current) use of aspirin; X58.XXXD Exposure to other specified factors, subsequent encounter; Y83.5 Amputation of limb(s) as the cause of abnormal reaction of the patient, or of later complication, without mention of misadventure at the time of the procedure ==

== ENCOUNTER → 2020-06-20 | Outpatient (CLI) | payer OTHER | LOC: HYPER 06-13 15:16 | PROVIDERS: ATTEND Emergency Medicine | DX: T87.81 Dehiscence of amputation stump (principal); E11.621 Type 2 diabetes mellitus with foot ulcer; L89.613 Pressure ulcer of right heel, stage 3; L97.411 Non-pressure chronic ulcer of right heel and midfoot limited to breakdown of skin; E11.628 Type 2 diabetes mellitus with other skin complications; S90.821D Blister (nonthermal), right foot, subsequent encounter; L84 Corns and callosities; K61.1 Rectal abscess; K43.2 Incisional hernia without obstruction or gangrene; N50.1 Vascular disorders of male genital organs; K43.9 Ventral hernia without obstruction or gangrene; R23.4 Changes in skin texture; I50.9 Heart failure, unspecified; F41.9 Anxiety disorder, unspecified; F32.9 Major depressive disorder, single episode, unspecified; Z79.01 Long term (current) use of anticoagulants; Z79.4 Long term (current) use of insulin; Z79.82 Long term (current) use of aspirin; Z89.411 Acquired absence of right great toe; X58.XXXD Exposure to other specified factors, subsequent encounter; Y83.5 Amputation of limb(s) as the cause of abnormal reaction of the patient, or of later complication, without mention of misadventure at the time of the procedure ==

== ENCOUNTER 2020-06-23 09:45 | Inpatient (IN) | payer OTHER ==
[2020-06-23] VITALS (19 sets, daily range): BP systolic 56–136; BP diastolic 36–88
[~2020-06-23] VITALS: Ht 182.9 cm; Wt 83.5 kg
[2020-06-23 10:40] LABS: ABSOLUTE NEUTROPHILS 9.5 thou/uL (1.4-8.2); BASOPHILS 0.3 % (0.0-2.0); EOSINOPHILS 1.4 % (0.0-3.0); HEMATOCRIT 33.6 % (42.0-52.0); HEMOGLOBIN 10.8 gm/dL (14.0-18.0); LYMPHOCYTES 12.4 % (24.0-44.0); MCH 27.6 pg (26.0-34.0); MCHC 32.2 g/dL (28.0-37.0); MCV 85.6 fL (80.0-100.0); MONOCYTES 4.8 % (1.0-8.0); PLATELET COUNT 260 thou/uL (150-400); POLYS 81.1 % (36.0-66.0); RBC 3.92 mil/uL (4.50-6.00); RDW 20.1 % (10.5-14.5); WBC 11.7 thou/uL (4.0-11.0)
[2020-06-23] MEDS ORDERED: CARVEDILOL6.25 M1 PO (10:40)
[2020-06-23] MEDS ORDERED: GRALISE600 MG PO (10:41)
[2020-06-23] MEDS ORDERED: RASUVO 2020 MG/0.4 SUBQ (10:41)
[2020-06-23] MEDS ORDERED: MECLIZINE HCL25 M1 PO (10:41)
[2020-06-23 10:42] LABS: CALCIUM 10.2 mg/dL (8.5-10.1); CREATININE 0.8 mg/dL (0.7-1.3); POTASSIUM 4.9 mmol/L (3.5-5.1)
[2020-06-23] MEDS ORDERED: CENTRUM SILVER1 EACH PO (10:42)
[2020-06-23] MEDS ORDERED: LANTUS SUBQ (10:43)
[2020-06-23] MEDS ORDERED: GEMFIBROZIL 60600 MG PO (10:43)
[2020-06-23] MEDS ORDERED: HYDROCODON-ACE1 EAC7 PO (10:44)
[2020-06-23] MEDS ORDERED: LIDOCAINE 2%2 %/5 GM TOP (10:44)
[2020-06-23 11:11] LABS: ANISOCYTOSIS 1+; PLATELET ESTIMATE NORMAL
--- NOTE | 2020-06-23 12:43 | NUR ---
SPOKE TO DR. JESUS ABOUT BP, HE GAVE THE ORDER OF ICU FOR AT LEAST ONE DAY DUE TO HYPOTENSION
--- NOTE | 2020-06-23 19:35 | NUR ---
VAT CONSULTED FOR A CL FOR PRESSORS AND IV ABX IN ICU. RT TL JACC PLACED RT IJ. PLEASE SEE INSERTION NOTE FOR DETAILS
--- NOTE | 2020-06-23 19:48 | NUR ---
ADMITTED TO ICU AT 1500. TRANSFERRED SELF TO BED AND ATTACHED TO MONITOR. SR ON MONITOR. WOUND TO L BKA INCISION SITE, R HEEL, R LATERAL FOOT AND R/L BUTTOCKS. ALL WOUNDS PHOTOGRAPHED AND WOUND CARE TEAM AT BEDSIDE TO DRESS WOUNDS. PAIN 07/12. DILAUDID .5 MG IV GIVEN WITH GOOD RESULTS.
--- NOTE | 2020-06-23 20:00 | NUR ---
ASSUMED CARE OF PT AWAKE AWAKE AND ALERT NEURO INTACT. LEFT STUMP DRESSING DRY AND INTACT. O2 SAT 98 % ON ROOM AIR. UP TO BEDSIDE COMMODE TO VOID WITH ONE ASSIST. PT IS AWAITING TO TX TO CCU.
--- NOTE | 2020-06-23 21:00 | NUR ---
ULTRASOUND OF LEFT LEG DONE.
--- NOTE | 2020-06-23 22:41 | NUR ---
PT RESTING QUIETLTY. DILAUDID GIVEN FOR LEFT STUMP PAin. TSS TO CCU ROOM 205 VIA W/C WITH RN
[2020-06-24 04:30] VITALS: BP 141/74
[2020-06-24 05:36] LABS: CALCIUM 8.5 mg/dL (8.5-10.1); CREATININE 0.5 mg/dL (0.7-1.3); MAGNESIUM 1.3 mg/dL (1.8-2.4)
--- NOTE | 2020-06-24 05:42 | NUR ---
PAIN WELL CONTROLLED WITH DILAUDID.UP TO THE BEDSIDE COMMODE.MONITOR SHOWS SR.POC CONTINUED.
[2020-06-24 06:02] LABS: POTASSIUM 3.8 mmol/L (3.5-5.1)
[2020-06-24 06:05] LABS: HEMATOCRIT 28.9 % (42.0-52.0); HEMOGLOBIN 9.4 gm/dL (14.0-18.0); MCH 28.1 pg (26.0-34.0); MCHC 32.6 g/dL (28.0-37.0); MCV 86.3 fL (80.0-100.0); RBC 3.35 mil/uL (4.50-6.00); RDW 19.6 % (10.5-14.5)
[2020-06-24 07:50] VITALS: BP 131/80
[2020-06-24 11:38] VITALS: BP 120/75
--- NOTE | 2020-06-24 13:30 | NUR ---
[facility] WITH PT STATES THAT BESIDES PT TRANSFERS THERE IS NOT MUCH THEY ARE DOING WITH PT. STATES THAT THEY ARE GOING TO SIGN OFF FOR NOW. IF HE NEEDS PT FOLLOWING HIS SURGERY ON TUESDAY TO PLEASE PUT A NEW ORDER IN.
--- NOTE | 2020-06-24 14:16 | NUR ---
PER ORTHO, PLAN FOR PATIENT TO HAVE A LEFT STUMP REVISION ON TUESDAY. WILL NEED POST-OP ORDERS AND WILL PLAN TO SEE PATIENT AFTER SURGERY. PATIENT WAS AGREEABLE AND REPORTS THAT HE DOESN'T THINK HE WILL HAVE ANY DIFFICULTIES WITH ADLS POST-OP.
--- NOTE | 2020-06-24 15:16 | NUR ---
met with patient and at bedside. Patient with recent admit to [facility] in March 2020. Prev admit for ulcer on foot, failed outpatient therapy. Patient rec BKA March2020 then transferred to acute rehab. Discharged home from acute rehab /[facility] on 04/01. Discharged home with HH from [facility]. Patient admits with Left BKA infection. reports they do not want [facility] to return they want a new HH agency. reports RN/care inconsistant. Left HH information in room. Patient has wc, powerchair, sliding board and commode in home setting. All needs on one level. reports patient has all needed DME at home. PCP Dr Manish Quiroz. Tenative plan for stump revision on . to review HH options. [facility] following for dc planning.
[2020-06-24 16:30] VITALS: BP 112/71
--- NOTE | 2020-06-24 16:41 | NUR ---
PT VSS THROUGHOUT SHIFT. DID NOT REQUIRE INSULIN. PT TRANSFERRED SELF TO BSC. PT SIGNED OFF ON PT. PT IS SET TO GO TO SURGERY ON TUESDAY AFTERNOON FOR REVISION OF LBKA STUMP. RIJ WITH ABX INFUSING. ABD XRAY DONE TODAY DUE TO UPPER ABD PAIN. BM X2 TODAY. AWAITING RESULTS OF XRAY. AT BEDSIDE THORUGHOUT THE DAY TODAY.
--- NOTE | 2020-06-24 17:49 | NUR ---
TALKED WITH DR. JESUS PER PT REQUEST WITH GETTING UP SO MUCH TO BSC WITH IVF RUNNING. IVF DISCONTINUED.
[2020-06-24 20:33] VITALS: BP 113/79
[2020-06-25 00:10] VITALS: BP 123/72
--- NOTE | 2020-06-25 00:36 | NUR ---
PT IS ALRET AND ORIENTED X4. HAS WOUND CARE DONE TREATEMENT ORDERED WITH AMEE SMITH. PAIN MEDS GIVEN WITH DRESSING CHANGE DONE. ANTIBIOTICS GIVEN ORDERED. PT IS PLEASANT. PAIN MEDS SEEMED TO GAVE HIM SOME RELIEF. HE IS NOW PLAYING OF GAMES ON HIS I PAD NO COMPLAINTS NOTED. ABDOMEN IS ROUND BOWEL SOUNDS ACTIVE X4. CALL LIGHT WITHIN REACH IF NEEDS ASSISTANCE
[2020-06-25 04:55] VITALS: BP 94/68
[2020-06-25 06:15] LABS: CALCIUM 8.4 mg/dL (8.5-10.1); CREATININE 0.5 mg/dL (0.7-1.3); HEMATOCRIT 30.2 % (42.0-52.0); HEMOGLOBIN 9.8 gm/dL (14.0-18.0); MAGNESIUM 1.4 mg/dL (1.8-2.4); MCH 27.9 pg (26.0-34.0); MCHC 32.6 g/dL (28.0-37.0); MCV 85.5 fL (80.0-100.0); POTASSIUM 3.4 mmol/L (3.5-5.1); RBC 3.53 mil/uL (4.50-6.00); RDW 19.2 % (10.5-14.5); WBC 7.1 thou/uL (4.0-11.0)
[2020-06-25 08:03] VITALS: BP 121/83
--- NOTE | 2020-06-25 10:11 | NUR ---
ASSUMED CARE OF PT AT 0700. ALERT AND ORIENTED TIMES FOUR. VSS. PT DENIES PAIN/SOA AT THIS TIME. PT TOLERATES MEDS AND MEALS. NO ACUTE DISTRESS AT THIS TIME. WILL CONTINUE TO MONITOR.
[2020-06-25 11:48] VITALS: BP 122/74
[2020-06-25 16:36] VITALS: BP 130/76
[2020-06-25 19:40] VITALS: BP 117/77
--- NOTE | 2020-06-26 02:55 | NUR ---
PT IS ALERT AND ORIENTED X4. LUNGS ARE DIMINISHED ON ROOM AIR. UP WITH STAND BY ASSIST AND TRANSFER TO COMMODE. PAIN MEDS GIVEN WITH DRESSING CHANGED TO WOUNDS LEFT BKA BEEN NPO AFTER MIDNIGHT PLAN IS TO DO A REVISION TOMORROW. PT SLEPT ON AND OFF THIS EVENING. CALL LIGHT WITHIN REACH IF NEEDS ASSISTANCE PER NURSING. NO ISSUES OR CONCERNS NOTED AT THIS TIME. WILL CONTINUE TO ASSESS AND MONITOR PER SARAH
[2020-06-26 04:00] VITALS: BP 109/65
[2020-06-26 06:01] LABS: HEMATOCRIT 31.1 % (42.0-52.0); HEMOGLOBIN 10.3 gm/dL (14.0-18.0); MCH 28.5 pg (26.0-34.0); MCHC 33.1 g/dL (28.0-37.0); MCV 86.1 fL (80.0-100.0); RBC 3.61 mil/uL (4.50-6.00); RDW 19.3 % (10.5-14.5); WBC 7.1 thou/uL (4.0-11.0)
[2020-06-26 06:51] LABS: CALCIUM 8.9 mg/dL (8.5-10.1); CREATININE 0.5 mg/dL (0.7-1.3); MAGNESIUM 1.6 mg/dL (1.8-2.4); POTASSIUM 4.2 mmol/L (3.5-5.1)
[2020-06-26 07:45] VITALS: BP 102/66
[2020-06-26 08:00] VITALS: BP 102/66
[2020-06-26 11:50] VITALS: BP 107/69
[2020-06-26 12:00] VITALS: BP 107/69
[2020-06-26 17:20] VITALS: BP 113/94
--- NOTE | 2020-06-26 17:52 | NUR ---
PT CARE ASSUMED AT 0700. ASSESSMENTS CHARTED. MEDICATION CHARTED. REVISION SURGERY 1400 - 1730; HEMOVAC AND WOUND VAC PLACED; LEG IMMOBILIZER PLACED ON LT. VANCOMYCIN AND PIPERACILLIN INTERUPTED FOR SURGERY; RESTARTED UPON PT'S RETURN. ACHS. RT IJ 3 LUMEN. PT USES BSC; SBA PT MANAGES IT QUITE WELL. SINUS RHYTHM. AO X 4.
[2020-06-27] VITALS (7 sets, daily range): BP systolic 94–124; BP diastolic 60–83
--- NOTE | 2020-06-27 04:09 | NUR ---
PT IS ALERT AND ORIENTED X4. LUNGS ARE CLEAR TO DIMINISHED. ON ROOM AIR. LEFT STUMP YESTERDAY HAD A REVISION. AND IS IN A IMOBILIZER. WITH A WOUND VAC. PAIN MEDS SEE DEC FOR TIME OF ADMINISTRATION. RESTING VOIDS PER URINAL TO LET HIS STUMP REST AND HEAL AT THIS TIME. GETING ANTIBIOTICS ORDERED. WILL CONTINUE TO ASSESS AND MONIOTOR PER NURSING
[2020-06-27 05:22] LABS: HEMATOCRIT 31.9 % (42.0-52.0); HEMOGLOBIN 10.4 gm/dL (14.0-18.0); MCH 28.1 pg (26.0-34.0); MCHC 32.7 g/dL (28.0-37.0); MCV 85.8 fL (80.0-100.0); RBC 3.72 mil/uL (4.50-6.00); RDW 19.4 % (10.5-14.5); WBC 7.8 thou/uL (4.0-11.0)
[2020-06-27 05:41] LABS: CALCIUM 8.9 mg/dL (8.5-10.1); CREATININE 0.5 mg/dL (0.7-1.3); MAGNESIUM 1.5 mg/dL (1.8-2.4); POTASSIUM 3.7 mmol/L (3.5-5.1)
--- NOTE | 2020-06-27 08:10 | HC ---
[facility] [place] [address] CONSULTATION Name: GLADYS VILLATORO Room #: 205-P ADM IN M.R.#: [id number] Admission: 06/23/20 Attend Phys: Amilcar Lira MD Discharge: Date of : 55 Report #: [id number] THIS REPORT FOR: cc: Manish Guevara MD,Manish Carlton,Oleg Dawkins MD ~ CC: Manish Lira DATE OF SERVICE: 06/23/2020 CHIEF COMPLAINT: Infected and dehisced left below-knee amputation. HISTORY OF PRESENT ILLNESS: This is a 65-year-old male patient with whom I am familiar, who previously had undergone left below-knee amputation. He had done well initially, but then developed breakdown and drainage and then separation of the below-knee amputation stump. I saw him in the [facility] last week and recommended admission, he declined, preferring to wait through the weekend until today. He is now admitted and is in the ICU due to hypotension. He denies pain at this time, he is worried about his left BKA site and we have been asked to see him with regard to ongoing wound care. PAST MEDICAL HISTORY: Positive for rheumatoid arthritis, diabetes mellitus, diverticulitis, history of previous cholecystectomy, osteomyelitis, left heel ulcer resulting in the BKA. He also has a current right heel ulcer. SOCIAL HISTORY: The patient admits to soaking cigarettes, half pack per day. Denies alcohol use. Uses marijuana on occasion. FAMILY HISTORY: Noncontributory. MEDICATIONS: Include Celebrex, cilostazol, aspirin, Zyrtec, carvedilol, methotrexate, gabapentin, meclizine, insulin, gemfibrozil, hydrocodone. ALLERGIES: INCLUDE CIPRO. FAMILY HISTORY: Noncontributory. REVIEW OF SYSTEMS: CONSTITUTIONAL: The patient denies fever, chills or weight loss. NEUROLOGICAL: The patient denies focal weakness, numbness or tingling. EYES: The patient denies visual changes, redness or drainage. ENT: The patient denies earache, nasal drainage or sore throat. CARDIOVASCULAR: The patient denies chest pain, palpitations or diaphoresis. PULMONARY: The patient denies cough or shortness of breath. GASTROINTESTINAL: The patient denies nausea, vomiting, diarrhea or abdominal [address] [address] CONSULTATION Name: GLADYS VILLATORO Room #: 205-P [facility] IN M.R.#: [id number] Admission: 06/23/20 Attend Phys: Amilcar Lira MD Discharge: Date of : 55 Report #: [id number] pain. ORTHOPEDIC: The patient has some separation and drainage, redness to the left below-knee amputation site as well as an ulceration to the left heel. Other systems in a 14-point review of systems are negative. PHYSICAL EXAMINATION: VITAL SIGNS: At this time include temperature 36.6, pulse 94, respiratory rate of 16, blood pressure 101/64. GENERAL: This is a chronically ill-appearing male patient who appears to be in no distress. HEENT: Head normocephalic. Nose and throat clear. NECK: Supple. ABDOMEN: Soft. Bowel sounds present. EXTREMITIES: Examination of the lower extremities demonstrates that the left below-knee amputation stump is dehisced. There is exposed tibia. There was a previous blister with ulceration on the posterior portion of the flap as well. He has a circular ulceration with a mix of fibrin and some eschar involving the right heel. NEUROLOGIC: The patient is alert and oriented and appropriate. LABORATORY STUDIES: Include white blood cell count 11.7 with a hemoglobin of 10.8. Sodium 136, potassium 4.9, chloride 102, BUN 42, creatinine 0.8, glucose 209. CLINICAL IMPRESSION: 1. Dehisced surgical wound following left below-knee amputation with exposed bone and cellulitis. 2. Stage 3 pressure ulcer of the right heel. 3. Peripheral vascular disease and diabetes mellitus with peripheral neuropathy. 4. Hyperlipidemia. 5. Hypertension. 6. Ongoing tobacco use. 7. Severe protein-calorie malnutrition with albumin 1.6. RECOMMENDATIONS: At this point in time, we will recommend Dakin's moist gauze to the left BKA site as well as to the right heel. He will need a PRAFO boot for offloading of the right heel. We will need orthopedic consultation regarding a revision to the left BKA site. He has a stage 3 pressure ulcer of the right buttock. We will recommend Z-Guard and q. 2 hour turning and positioning, low air loss mattress. He will need aggressive nutritional support to maintain healing. [address] [address] CONSULTATION Name: GLADYS VILLATORO Room #: 205-P ADM IN M.R.#: [id number] Admission: 06/23/20 Attend Phys: Amlicar Lira MD Discharge: Date of : 55 Report #: [id number] I appreciate being asked to see the patient in consultation. <ELECTRONICALLY SIGNED> By: Oleg Carlton MD 06/27/20 0810 1132 1251 Oleg Carlton MD /nt
--- NOTE | 2020-06-27 15:44 | NUR ---
No weekend dc anticipated. Pt on iv atb with cultures pending. Wound care and ortho following closely. Wound care dc'd left stump drain today. Surgical wound VAC in place. Pt being seen by therapy. reviewing list of HH agencies as she does not want to resume with [facility] at dc. Will follow.
--- NOTE | 2020-06-27 19:47 | NUR ---
PT CARE ASSUMED AT 0700. ASSESSMENTS CHARTED. MEDICATION CHARTED. HEMOVAC REMOVED TODAY. WOUND VAC REMAINS. PT PREFERS HYDROMORPHONE; DR ROWAN WOULD LIKE IV PAIN MEDS ALTERNATED WITH HYDROCODONE PO. RIJ-3L. CC DIET; ACHS. SINUS RYHTHM. AO X 4. [place] [facility] [place]
[2020-06-28 04:45] VITALS: BP 146/88; BP 95/59
--- NOTE | 2020-06-28 06:43 | NUR ---
PROGRESS PT A/O X4 RATING PAIN A 6 TO AN 8 TAKING EVERY DILAUDID Q4HRS IVP AND ALTERNATUING WITH 2 HYDROCODONE TABLETS WITH EFFECT PT RATES PAIN A 6 AFTER MEDS AND HE FEELS ABLE TO MOVE AND REST WITH DECREASED PAIN. PT UP WITH 1 AND PIVOT TRANSFER. LUNGS CLEAR HAD A SMALL BM AND IS VOIDING QS. IV ZOZYN CONTINUES.PLAN FOR PICC PLACEMENT AND POSSIBLE TRANSFER TO REHAB LEFT STUMP WRAPPED WITH ACEWRAP WITH WOUND VAC IN PLACE READING SUCTION AT 125MMHG OF SUCTION. CONTINUE POC.
[2020-06-28 07:45] VITALS: BP 92/50
[2020-06-28] MEDS ORDERED: VANCOMYCIN1 GM/2002 IV (08:06)
[2020-06-28 11:45] VITALS: BP 119/72
[2020-06-28 16:30] VITALS: BP 126/71
--- NOTE | 2020-06-28 16:44 | NUR ---
ASSESSMENT CHARTED - MEDS PER DEC - NO CO'S OF BREAKTHROUGH PAIN SO FAR THIS SHIFT STARTED ON ER OXY THIS AM. YAJAIRA DIET AND FLUIDS WITH NO CO'S OF NAUSEA. UP TO THE BSC WITH ASSIST AND USE OF GAIT BELT. ULCER TO RIGHT HEEL CLEANED AND BETADINE APPLIED ORDERED. [PICC LINE PLACED THIS AFTERNOON. WOUND VAC REMINS INSITU AND FUNCTIONAL TO L STUMP - SEEN BY [facility]THO FOR STUMP PRIMARY CARE NURSE PRACTITIONER AND PROSTHESIS THIS AM. INTO VISIT - ACCUCHECKS CHARTED. NO CO'S AT THE PRESENT TIME.
--- NOTE | 2020-06-28 17:59 | NUR ---
VAT CONSUTLTED FOR A SLPICC FOR LT HOME ABX. A 4FRSLPICC PLACED LUABRACHIAL. TIP IN GOOD POSITION PER CXR, OK FOR RN TO REMOVED RT IJ
[2020-06-28 20:00] VITALS: BP 116/78
[2020-06-29 04:00] VITALS: BP 107/64
--- NOTE | 2020-06-29 04:27 | NUR ---
PATIENT IS PROGRESSING SLOWLY IN HIS CARE PLAN. VITAL SIGNS STABLE WITH PATIENT HAVING NO COMPLAINTS OF NAUSEA. PATIENT DID COMPLAIN FREQUENTLY OF PAIN AND WAS TREATED APPROPRIATELY THROUGH MEDICATIONS. FULLY ORIENTED, PATIENT IS ABLE TO CALL APPROPRIATELY FOR NEEDS AND PARTICIPATE IN CARE. SURGICAL DRESSING ON STUMP REMAINS CLEAN, DRY, AND INTACT WITH WOUND VAC IN PLACE. PATIENT HAS BEEN UP TO BEDSIDE COMMODE WITH ASSISTANCE MULTIPLE TIMES INCIDENT FREE. CONTINUE PLAN OF CARE.
[2020-06-29 07:45] VITALS: BP 128/88
[2020-06-29 11:09] VITALS: BP 119/59
--- NOTE | 2020-06-29 17:07 | NUR ---
ASSESSMENT CHARTED - MEDS PER MAR - NO CO'S OF PAIN OR NAUSEA. YAJAIRA DIET AND FLUIDS. UP TO THE BSC THIS SHIFT - BOTTOM WITH SLIGHT REDNESS PRESENT. WOUND VAC TO STUMO C/D/I. ACCUCHECKS CHARTED - COVERED PER SSI PRN. BETADINE TO R HEEL APPLIED ORDERED. IN TO VISIT. PICC SANG REMAINS INSITU - NO CO'S AT THE PRESENT TIME.
[2020-06-29 20:11] VITALS: BP 119/72
--- NOTE | 2020-06-30 04:57 | NUR ---
PATIENT IS PROGRESSING IN HIS CARE PLAN. VITAL SIGNS STABLE WITH PATIENT HAVING NO COMPLAINTS OF NAUSEA. PATIENT DID COMPLAIN OF PAIN IN STUMP WHICH WAS TREATED APPROPRIATELY THROUGH MEDICATIONS AND REPOSITIONING. FULLY ALERT AND ORIENTED, PATIENT IS ABLE TO CALL APPROPRIATELY FOR NEEDS AND PARTICIPATE IN CARE PLAN. STUMP DRESSING REMAINS CLEAN, DRY, AND INTACT WITH WOUND VAC IN PLACE AND WORKING. UP MULTIPLE TIMES TO BEDSIDE COMMODE WITH ASSISTANCE INCIDENT FREE. PATIENT IS ANXIOUS FOR POTENTIAL DISCHARGE SOON. CONTINUE PLAN OF CARE.
[2020-06-30 05:59] VITALS: BP 134/84
[2020-06-30 08:00] VITALS: BP 121/70
--- NOTE | 2020-06-30 09:56 | NUR ---
ASSUMED CARE OF PT AT SHIFT CHANGE, A&0X4, UP WITH SBA TO BSC - PT DOES WELL. SPOUSE TO SHOW UP LATER. WOUND VAC ON, PT HAS QUESTIONS ABOUT WHERE HE'LL GET HIS ABX AND WOUND VAC UPON DISCHARGE, SPOKE TO SW/CM THEY'LL SET UP. ENCOURAGED HIM TO USE CALL LIGHT FOR ALL NEEDS, AND HE DOES. BM THIS A.M. SEE SEPARATE INTERVENTIONS FOR ASSESSMENTS
[2020-06-30 10:46] VITALS: BP 121/70
[2020-06-30] MEDS ORDERED: ZYVOX600 MG PO (15:12)
[2020-06-30 15:30] VITALS: BP 120/53
--- NOTE | 2020-06-30 16:58 | NUR ---
PT DISCHARGING TODAY TO HOME WITH [facility] FAXED REFERRAL AND DC ORDERS/SUMMARY RECEIVED CONFIRMATION THEY WILL NOTIFY PT TO SET UP VISITS.
--- NOTE | 2020-06-30 17:24 | NUR ---
Patient to discharge to home today and rec orders for home infusion. Referral to [facility] and [facility]. Patient does not have Part D and no prescrition benefit. Out of pocket cost $300-$500. Patient/family cannot afford. Dr Lipscomb considering oral. Dr Scruggs rounded and ordered outpatient infusion. Sp with scheduling as outpatient infusion closed. Scheduled patient at 10;00 am for outpatient infusion. Patient can also cont to rev HH from [facility]. Updated and patient.
--- NOTE | 2020-07-02 10:47 | O ---
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 POSTOPERATIVE DIAGNOSIS: Left below-knee amputation, wound dehiscence with exposed tibia. PROCEDURES: 1. Revision left below-knee amputation with primary wound closure. 2. Application of wound VAC, left below-knee amputation. SURGEON: Jasen Aguilera MD. [employer]: Rhona Grant PA-C. INDICATIONS FOR VP [employer]: Throughout the case, extensive retraction and manipulation of the below-knee amputation was required. This was afforded to me by my training assistant. ANESTHESIA: LMA. TOURNIQUET TIME: 11 minutes. ESTIMATED BLOOD LOSS: 25 mL. COMPLICATIONS: None. SPECIMENS: None. CONDITION UPON LEAVING THE OPERATING ROOM: Stable. INDICATIONS FOR PROCEDURE: The patient is a 65-year-old gentleman who had a left below-knee amputation back in March of this year. He initially did well with healing this; however, over the past several weeks, he has had a wound over his distal anterior stump that has gotten larger with wound dehiscence with exposed tibia. He has been seeing wound care for this and has been admitted for [facility] [address] [place] [address] OPERATIVE REPORT Name: GLADYS VILLATORO Room #: 208-P [facility] IN .R.#: [id number] Admission: 06/23/20 Attend Phys: Amilcar Lira MD Discharge: 06/30/20 Date of : 55 Report #: [id number] potential revision of his below-knee amputation. DESCRIPTION OF PROCEDURE: Risks, benefits, alternatives, complications were discussed in detail with the patient including but not limited to risk of anesthesia, risk of continued infection of the stump and need for higher level amputation including above-knee amputation. Informed consent was obtained from the patient. The left leg was appropriately marked in the preoperative holding area. The patient was already on Zosyn for preoperative antibiotics. He was brought to the operating room and placed in supine position on operating room table. LMA anesthesia was induced without complication. Tourniquet was placed on the left thigh. Left lower extremity was prepped and draped in normal sterile fashion. Timeout was performed properly identifying the patient and procedure as well as the instrumentation. All in the operating room were in agreement. Left lower extremity was elevated, tourniquet was inflated. Tourniquet time was 11 minutes. The edges of the skin were then resected back to good tissue and the deep wound was debrided of epithelialized tissue. The distal tibia was then dissected with a Man elevator and about 1-1/2 inches of the distal tibia was resected with an oscillating saw. Given this amount of resection, it was decided that we would need to resect the fibula to a higher level and the fibula was dissected out with Bovie cautery and cut with a bone cutter at the level of the tibial cut. After this, the tourniquet was deflated. Hemostasis was obtained with Bovie cautery. A Hemovac drain was placed. The posterior fascia was then oversewn to the anterior periosteum of the tibia with 0 Vicryl and the skin was then closed with 2-0 nylon. A wound VAC was then placed over the incision line, incorporating the posterior skin flap that was in the process of epithelializing. An Mic wrap was then applied as well as a knee immobilizer. The patient tolerated this procedure well and went to recovery room under care of anesthesia postoperatively. <ELECTRONICALLY SIGNED> By: Jasen Aguilera MD 07/02/20 1047 [id number] Jasen Aguilera MD /nt
== END 2020-06-30 16:30 | disposition home health service (06) | DRG 853 ==
LOC: ER 09:45 → 2N 11:46 → EROBS 11:46 → ICU 13:56 → 2N 22:55
PROVIDERS: Emergency Medicine; ADMIT Internal Medicine; ATTEND Internal Medicine
PROC: 02HV33Z Insertion of Infusion Device into Superior Vena Cava, Percutaneous Approach (ICD-10-PCS; principal; 2020-06-23)
PROC: 0Y6J0Z3 Detachment at Left Lower Leg, Low, Open Approach (ICD-10-PCS; 2020-06-26)
DX: A41.9 Sepsis, unspecified organism (principal); L89.313 Pressure ulcer of right buttock, stage 3; L89.613 Pressure ulcer of right heel, stage 3; L89.323 Pressure ulcer of left buttock, stage 3; E43 Unspecified severe protein-calorie malnutrition; R65.21 Severe sepsis with septic shock; T81.49XA Infection following a procedure, other surgical site, initial encounter; T87.81 Dehiscence of amputation stump; R65.20 Severe sepsis without septic shock; L89.616 Pressure-induced deep tissue damage of right heel; F17.210 Nicotine dependence, cigarettes, uncomplicated; M06.9 Rheumatoid arthritis, unspecified; E11.51 Type 2 diabetes mellitus with diabetic peripheral angiopathy without gangrene; E11.621 Type 2 diabetes mellitus with foot ulcer; L97.519 Non-pressure chronic ulcer of other part of right foot with unspecified severity; E78.5 Hyperlipidemia, unspecified; I10 Essential (primary) hypertension; R09.82 Postnasal drip; Y82.8 Other medical devices associated with adverse incidents; Z20.828 Contact with and (suspected) exposure to other viral communicable diseases; Y83.8 Other surgical procedures as the cause of abnormal reaction of the patient, or of later complication, without mention of misadventure at the time of the procedure; Z90.49 Acquired absence of other specified parts of digestive tract; Z91.09 Other allergy status, other than to drugs and biological substances; Z89.411 Acquired absence of right great toe; Z93.3 Colostomy status; Z79.899 Other long term (current) drug therapy; Z79.4 Long term (current) use of insulin; Z79.82 Long term (current) use of aspirin; Z68.24 Body mass index [BMI] 24.0-24.9, adult; Z79.891 Long term (current) use of opiate analgesic; Z88.1 Allergy status to other antibiotic agents
CPT/HCPCS: 10081; 27000; 50010; 50101; 50386; 50643; 51771; 53000; 53078; 56525; 56528; 57091; 57179; 62110; 62900; 70005

== ENCOUNTER → 2020-07-01 | Outpatient (CLI) | payer OTHER ==
[~2020-07-01] MED LIST changes: +CARVEDILOL6.25 M1 PO; +CENTRUM SILVER1 EACH PO; +GEMFIBROZIL 60600 MG PO; +GRALISE600 MG PO; +HYDROCODON-ACE1 EAC7 PO; +LANTUS SUBQ; +LIDOCAINE 2%2 %/5 GM TOP; +MECLIZINE HCL25 M1 PO; +RASUVO 2020 MG/0.4 SUBQ; +VANCOMYCIN1 GM/2002 IV; +ZYVOX600 MG PO
[2020-07-01 10:05] VITALS: BP 92/57
--- NOTE | 2020-07-01 12:35 | NUR ---
IN FOR DAPTOMYCIN INFUSION FOR LEFT STUMP INFECTION. ADMISSION HISTORY AND ASSESSMENT COMPLETED. MEDICATION RECONCILED. PATIENT WAS DISCHARGED FROM THE HOSPITAL YESTERDAY. TOLERATED INFUSION WITHOUT INCIDENT. RECEIVED GOOD BLOOD RETURN FROM PICC LINE AND FLUSHED EASILY. TO RETURN TOMORROW FOR THE SAME. DISMISSED IN STABLE CONDITION.
== END ==
LOC: OPONC 07:46
PROVIDERS: ATTEND Specialist
DX: T87.44 Infection of amputation stump, left lower extremity (principal); Y83.5 Amputation of limb(s) as the cause of abnormal reaction of the patient, or of later complication, without mention of misadventure at the time of the procedure
CPT/HCPCS: 95000

== ENCOUNTER → 2020-07-02 | Outpatient (CLI) | payer OTHER ==
[2020-07-02 15:00] VITALS: BP 105/64
--- NOTE | 2020-07-02 15:00 | NUR ---
HERE FOR CONTINUATION OF DAILY IV DAPTOMYCIN INFUSION. REPORTS TOLERATING MED WELL. DENIES N/V/DIARRHEA, FEVER/CHILLS OR OTHER CONCERNS. DOES HAVE WEAKNESS WHICH HE ATTRIBUTES TO LONG HOSPITAL STAY. [facility] IS MANAGING HIS DRESSING CHANGES TO HIS LT BKA. TODAY'S INFUSION COMPLETED WITHOUT INCIDENT. DISMISSED IN STABLE CONDITION.
== END ==
LOC: OPONC 14:40
PROVIDERS: ATTEND Specialist
DX: T87.44 Infection of amputation stump, left lower extremity (principal); Y83.5 Amputation of limb(s) as the cause of abnormal reaction of the patient, or of later complication, without mention of misadventure at the time of the procedure
CPT/HCPCS: 95000

== ENCOUNTER → 2020-07-03 | Outpatient (CLI) | payer OTHER ==
[2020-07-03 13:20] VITALS: BP 107/66
[2020-07-03 13:23] LABS: ABSOLUTE NEUTROPHILS 6.2 thou/uL (1.4-8.2); BASOPHILS 0.9 % (0.0-2.0); EOSINOPHILS 4.6 % (0.0-3.0); HEMATOCRIT 31.7 % (42.0-52.0); HEMOGLOBIN 10.4 gm/dL (14.0-18.0); LYMPHOCYTES 18.7 % (24.0-44.0); MCH 28.6 pg (26.0-34.0); MCHC 32.8 g/dL (28.0-37.0); MCV 87.2 fL (80.0-100.0); MONOCYTES 9.2 % (1.0-8.0); PLATELET COUNT 267 thou/uL (150-400); POLYS 66.6 % (36.0-66.0); RBC 3.64 mil/uL (4.50-6.00); RDW 20.1 % (10.5-14.5); WBC 9.3 thou/uL (4.0-11.0)
[2020-07-03 13:39] LABS: ALBUMIN 2.7 g/dL (3.4-5.0); CALCIUM 9.8 mg/dL (8.5-10.1); CREATININE 0.7 mg/dL (0.7-1.3); POTASSIUM 4.3 mmol/L (3.5-5.1); TOTAL BILIRUBIN 0.2 mg/dL (0.2-1.0); TOTAL PROTEIN 7.4 g/dL (6.4-8.2)
[2020-07-03 13:47] LABS: ANISOCYTOSIS 2+
[2020-07-03 13:48] LABS: MACROCYTES FEW; MICROCYTES FEW; SCHISTOCYTES OCCASIONAL
--- NOTE | 2020-07-03 16:04 | NUR ---
IN FOR DAILY DAPTOMYCIN INFUSION FOR LT BKA INFECTION. STATED FEELING OK TODAY. DENIED DIARRHEA, NAUSEA, FEVER AND CHILLS. STILL WITH DULL CONSTANT PAIN TO LT STUMP. DRESSING INTACT AND DRY TO LT STUMP. RODRIGUEZ LABS FROM PICC LINE WITHOUT DIFFICULTY. SITE WNL. TOLERATED INFUSION WITHOUT INCIDENT. TO RETURN TOMORROW FOR NEXT INFUSION. DISMISSED IN STABLE CONDITION.
== END ==
LOC: OPONC 09:40
PROVIDERS: ATTEND Specialist
DX: T87.44 Infection of amputation stump, left lower extremity (principal); Y83.5 Amputation of limb(s) as the cause of abnormal reaction of the patient, or of later complication, without mention of misadventure at the time of the procedure
CPT/HCPCS: 95000

== ENCOUNTER → 2020-07-04 | Outpatient (CLI) | payer OTHER ==
--- NOTE | ~2020-07-04 | HC ---
[facility] [place] [address] CONSULTATION Name: GLADYS VILLATORO [id number] Admission: 07/04/20 Attend Phys: Umesh Scruggs MD Discharge: Date of : 55 Report #: [id number] THIS REPORT FOR: cc: Manish Guevara MD, John MD Geha, Daniel J. MD ~ CC: Umesh London MD DATE OF SERVICE: 07/04/2020 OUTPATIENT FOLLOWUP VISIT Followup evaluation of left BKA, corynebacterium surgical site infection, status post revision on 06/26/2020. The patient is now on daptomycin. His cultures revealed corynebacterium. He has a left upper extremity PICC, which is functioning well. He has no increased pain in the left BKA. He does have sutures that remain in place. He has had no drainage from his incision. He still has a significant wound to the flap. No purulent drainage. He denies any fever, chills, or sweats. No nausea, vomiting, or diarrhea. A 10-point review of system was negative other than what has been described above. Afebrile and hemodynamically stable. Left upper extremity PICC was without erythema or drainage. Left lower extremity BKA incision was well approximated. Sutures to the medial aspect of his incision were intact. There was an extensive, fairly superficial wound over the mid portion of his stump flap. Did not appear ischemic. There was no fluctuance. There was no surrounding cellulitis. LABORATORY DATA: Hemoglobin 10.4, WBC 9.3, platelet 267,000. Sodium 140, potassium 4.3, creatinine 0.7. Liver function test normal. ESR 82. CRP 25. CPK 23. IMPRESSION: Left below knee amputation dehiscence and subsequent infection due to corynebacterium. He is status post revision surgery. Making reasonable progress. We are now 8 days into his treatment course. We will plan to continue daptomycin at current dose. We will followup in 1 week. Continue wound care. The patient is to follow up with wound care service this week. By: 1451 [id number] Umesh Scruggs MD /nt
[2020-07-04 16:09] VITALS: BP 124/83
--- NOTE | 2020-07-04 16:13 | NUR ---
IN FOR DAILY DAPTOMYCIN INFUSION. STATED PAIN MEDICATION CONTROLLING PAIN AND DENIED PAIN TODAY. ALSO DENIED NAUSEA, FEVER/CHILLS, DIARRHEA. TOLERATED INFUSION WITHOUT INCIDENT. DR. CARRENO VISITED. WOUND TO LT STUMP HEALING NICELY. MINIMAL DRAINAGE. SKIN PINK/MOIST. SUTURES INTACT. REDRESSED WOUND WITH AQUACEL AG, ABD PADS, KERLIX AND RANDAL WRAP. PATIENT WEARING BRACE ON LT LEG. PLAN IS TO CONTINUE THE SAME FOR ONE MORE WEEK WITH A F/U APPT NEXT TUESDAY. BRINGING PATIENT FOR APPT'S. DISMISSED IN STABLE CONDITION.
== END ==
LOC: OPONC 09:43
PROVIDERS: ATTEND Specialist
DX: T87.44 Infection of amputation stump, left lower extremity (principal); Y83.5 Amputation of limb(s) as the cause of abnormal reaction of the patient, or of later complication, without mention of misadventure at the time of the procedure
CPT/HCPCS: 95000

== ENCOUNTER → 2020-07-05 | Outpatient (CLI) | payer OTHER ==
[~2020-07-05] MED LIST changes: +CARVEDILOL12.5 MG PO; -CARVEDILOL6.25 M1 PO
== END ==
LOC: OPONC 10:00
PROVIDERS: ATTEND Specialist
DX: T87.44 Infection of amputation stump, left lower extremity (principal); Y83.5 Amputation of limb(s) as the cause of abnormal reaction of the patient, or of later complication, without mention of misadventure at the time of the procedure
CPT/HCPCS: 95000

== ENCOUNTER → 2020-07-06 | Outpatient (CLI) | payer OTHER | LOC: OPONC 10:00 | PROVIDERS: ATTEND Specialist | DX: T87.44 Infection of amputation stump, left lower extremity (principal); Y83.5 Amputation of limb(s) as the cause of abnormal reaction of the patient, or of later complication, without mention of misadventure at the time of the procedure | CPT/HCPCS: 95000 ==

== ENCOUNTER → 2020-07-07 | Outpatient (CLI) | payer OTHER ==
[2020-07-07 08:55] VITALS: BP 121/69
--- NOTE | 2020-07-07 09:41 | NUR ---
HERE FOR DAILY DAPTOMYCIN INFUSION. REPORTS DOING WELL, FEELING WELL. NO CONCERNS NOTED. MANAGING DRESSING CHANGES AT HOME. STATES ALL LOOKING GOOD. TOLERATED INFUSION WITHOUT INCIDENT. DISMISSED IN STABLE CONDITION. SCHEDULED TO RETURN AGAIN IN THE MORNING.
== END ==
LOC: OPONC 09:06
PROVIDERS: ATTEND Specialist
DX: T87.44 Infection of amputation stump, left lower extremity (principal); Y83.5 Amputation of limb(s) as the cause of abnormal reaction of the patient, or of later complication, without mention of misadventure at the time of the procedure
CPT/HCPCS: 95000

== ENCOUNTER → 2020-07-08 | Outpatient (CLI) | payer OTHER ==
[2020-07-08 10:05] VITALS: BP 113/60
--- NOTE | 2020-07-08 10:38 | NUR ---
IN FOR DAILY DAPTOMYCIN INFUSION. STATED FEELING WELL. DENIED NAUSEA, VOMITING, FEVER, CHILLS, DIARRHEA. TOLERATED INFUSION WITHOUT INCIDENT. DISMISSED IN STABLE CONDITION.
== END ==
LOC: OPONC 09:03
PROVIDERS: ATTEND Specialist
DX: T87.44 Infection of amputation stump, left lower extremity (principal)
CPT/HCPCS: 95000

== ENCOUNTER → 2020-07-09 | Outpatient (CLI) | payer OTHER ==
[2020-07-09 10:00] VITALS: BP 69/35
[2020-07-09 10:01] VITALS: BP 80/44
[2020-07-09 10:20] VITALS: BP 123/71
== END ==
LOC: OPONC 09:27
PROVIDERS: ATTEND Specialist
DX: T87.44 Infection of amputation stump, left lower extremity (principal)
CPT/HCPCS: 95000

== ENCOUNTER → 2020-07-10 | Outpatient (CLI) | payer OTHER ==
[2020-07-10 10:10] LABS: ABSOLUTE NEUTROPHILS 6.9 thou/uL (1.4-8.2); EOSINOPHILS 3.6 % (0.0-3.0); HEMATOCRIT 32.2 % (42.0-52.0); HEMOGLOBIN 10.6 gm/dL (14.0-18.0); LYMPHOCYTES 16.7 % (24.0-44.0); MCHC 32.8 g/dL (28.0-37.0); MCV 88.2 fL (80.0-100.0); MONOCYTES 4.9 % (1.0-8.0); PLATELET COUNT 287 thou/uL (150-400); POLYS 73.8 % (36.0-66.0); RBC 3.65 mil/uL (4.50-6.00); RDW 20.8 % (10.5-14.5); WBC 9.4 thou/uL (4.0-11.0)
[2020-07-10 10:34] LABS: ANISOCYTOSIS 2+; MACROCYTES 1+; MICROCYTES 1+; PLATELET ESTIMATE NORMAL
[2020-07-10 10:35] LABS: LARGE PLATELETS RARE
[2020-07-10 10:36] LABS: ALBUMIN 2.7 g/dL (3.4-5.0); CALCIUM 9.6 mg/dL (8.5-10.1); CREATININE 0.8 mg/dL (0.7-1.3); POTASSIUM 4.6 mmol/L (3.5-5.1); TOTAL BILIRUBIN 0.3 mg/dL (0.2-1.0); TOTAL PROTEIN 7.4 g/dL (6.4-8.2)
[2020-07-10 11:53] VITALS: BP 115/59
== END ==
LOC: OPONC 09:07
PROVIDERS: ATTEND Specialist
DX: T87.44 Infection of amputation stump, left lower extremity (principal)
CPT/HCPCS: 95000

== ENCOUNTER → 2020-07-11 | Outpatient (CLI) | payer OTHER ==
--- NOTE | ~2020-07-11 | HC ---
[facility] [place] [address] CONSULTATION Name: GLADYS VILLATORO Room #: REG [facility].#: [id number] Admission: 07/11/20 Attend Phys: Umesh Scruggs MD Discharge: Date of : 55 Report #: [id number] THIS REPORT FOR: cc: Manish Guevara MD, John MD Geha,Umesh Mitchell MD ~ CC: Umesh London MD DATE OF SERVICE: 07/11/2020 HISTORY OF PRESENT ILLNESS: Followup evaluation. Left BKA. Corynebacterium surgical site infection. The patient underwent a revision surgery to his left BKA on 06/26/2020. Cultures revealed corynebacterium. He is now on daptomycin via a left upper extremity PICC. He is having no increased pain. Wounds are draining minimal amount. No fever, chills or sweats. Overall, feels well. REVIEW OF SYSTEM: No cough or sputum production. No shortness of breath or chest discomfort. No nausea, vomiting, diarrhea, dysuria, or frequency. PHYSICAL EXAMINATION: VITAL SIGNS: He is afebrile and hemodynamically stable. EXTREMITIES: Left upper extremity PICC without erythema or drainage. Left [id number]-[id number]-aadr amputation site had mid portion of his incision dehisced with granulation tissue at the base. There was skin loss over the mid portion of his flap with nice epithelialization ongoing. No surrounding erythema or tenderness. CHEST: Clear. HEART: Regular. ABDOMEN: Soft and nontender. LABORATORY STUDIES: Hemoglobin 10.6, WBC 9.4, platelet 287,000. Liver function test normal. CPK 29, creatinine 0.8. ESR 80, CRP 35. IMPRESSION: Left below-knee amputation dehiscence and subsequent infection due to corynebacterium. He has 15 days post-revision stump surgery. Plan to continue his current IV antibiotics 6 weeks from his surgery date. We will [facility] [address] [place] [address] CONSULTATION Name: GLADYS VILLATORO Room #: REG [facility].#: [id number] Admission: 07/11/20 Attend Phys: Umesh Scruggs MD Discharge: Date of : 55 Report #: [id number] follow wound healing and laboratory studies. The patient will follow up in 1 week. By: 1341 [id number] Umesh Scruggs MD /nt
[2020-07-11 16:13] VITALS: BP 75/51
== END ==
LOC: OPONC 11:59
PROVIDERS: ATTEND Specialist
DX: T87.44 Infection of amputation stump, left lower extremity (principal)
CPT/HCPCS: 95000

== ENCOUNTER → 2020-07-11 | Outpatient (CLI) | payer OTHER | LOC: HYPER 09:56 | PROVIDERS: ATTEND Emergency Medicine Emergency Medical Services | DX: T87.81 Dehiscence of amputation stump (principal); E11.621 Type 2 diabetes mellitus with foot ulcer; L89.613 Pressure ulcer of right heel, stage 3; L97.411 Non-pressure chronic ulcer of right heel and midfoot limited to breakdown of skin; S90.821D Blister (nonthermal), right foot, subsequent encounter; L84 Corns and callosities; K61.1 Rectal abscess; K43.2 Incisional hernia without obstruction or gangrene; N50.1 Vascular disorders of male genital organs; K43.9 Ventral hernia without obstruction or gangrene; R23.4 Changes in skin texture; I50.9 Heart failure, unspecified; F41.9 Anxiety disorder, unspecified; F32.9 Major depressive disorder, single episode, unspecified; F17.290 Nicotine dependence, other tobacco product, uncomplicated; Z79.01 Long term (current) use of anticoagulants; Z79.4 Long term (current) use of insulin; Z79.82 Long term (current) use of aspirin; Z89.411 Acquired absence of right great toe; X58.XXXD Exposure to other specified factors, subsequent encounter; Y83.5 Amputation of limb(s) as the cause of abnormal reaction of the patient, or of later complication, without mention of misadventure at the time of the procedure ==

== ENCOUNTER → 2020-07-12 | Outpatient (CLI) | payer OTHER ==
[2020-07-12 11:34] VITALS: BP 127/61
== END ==
LOC: OPONC 11:31
PROVIDERS: ATTEND Specialist
DX: T87.44 Infection of amputation stump, left lower extremity (principal)
CPT/HCPCS: 95000

== ENCOUNTER → 2020-07-13 | Outpatient (CLI) | payer OTHER ==
[2020-07-13 10:40] VITALS: BP 95/62
--- NOTE | 2020-07-13 11:23 | NUR ---
HERE FOR DAILY IV DAPTOMYCIN INFUISON. REPORTS DOING WELL. STILL HAVIN PAIN LT BKA BUT AND PT REPORT SITE LOOKING GOOD. DENIES N/V/DIARRHEA, FEVER/CHILLS OR OTHER ISSUES. FEELS BP DOING BETTER POST ADJUSTMENTS BY DR. GERARDO. TOLERATED INFUSION TODAY WITHOUT INCIDENT. DISMISSED IN STABLE CONDITION.
== END ==
LOC: OPONC 10:36
PROVIDERS: ATTEND Specialist
DX: T87.44 Infection of amputation stump, left lower extremity (principal); Y83.5 Amputation of limb(s) as the cause of abnormal reaction of the patient, or of later complication, without mention of misadventure at the time of the procedure
CPT/HCPCS: 95000

== ENCOUNTER → 2020-07-14 | Outpatient (CLI) | payer OTHER ==
[2020-07-14 09:45] VITALS: BP 84/30
--- NOTE | 2020-07-14 10:18 | NUR ---
HERE FOR DAILY IV DAPTOMYCIN INFUSION. REPORTS DOING OK. DENIES ANY NEW PROBLEMS OR CONCERNS. BP LOW AGAIN TODAY. STATES IT IS FLUCTUATING. PT DENIES BEING SYMPTOMATIC. DR. PALMER ADJUSTED HIS CARDIAC/BP MEDS LAST WEEK. PT STATES HIS IS DRINKING/EATING WELL, MAKING URINE. DENIES N/V/DIARRHEA, FEVER/CHILLS. STILL HAS SOME PAIN LT BKA. HH MANAGING DRSG CHANGES. PT TOLERATED INFUSION TODAY WITHOUT INCIDENT. DISMISSED IN STABLE CONDITION.
== END ==
LOC: OPONC 09:11
PROVIDERS: ATTEND Specialist
DX: T87.44 Infection of amputation stump, left lower extremity (principal)
CPT/HCPCS: 95000

== ENCOUNTER → 2020-07-15 | Outpatient (CLI) | payer OTHER ==
[2020-07-15 11:16] VITALS: BP 75/46
--- NOTE | 2020-07-15 11:18 | NUR ---
IN FOR DAILY DAPTOMYCIN INFUSION FOR LEFT BKA INFECTION. DENINED NAUSEA, DIARRHEA, FEVER, CHILLS. STILL WITH #6 DULL CONSTANT PAIN TO LEFT STUMP. TOLERATED INFUSION WITHOUT INCIDENT. TO RETURN TOMORROW FOR NEXT INFUSION. DISMISSED IN STABLE CONDITION.
== END ==
LOC: OPONC 08:57
PROVIDERS: ATTEND Specialist
DX: T87.44 Infection of amputation stump, left lower extremity (principal)
CPT/HCPCS: 95000

== ENCOUNTER → 2020-07-16 | Outpatient (CLI) | payer OTHER ==
[2020-07-16 09:55] VITALS: BP 65/41
--- NOTE | 2020-07-16 16:35 | NUR ---
PT IN EARLIER TODAY FOR HIS DAILY IV DAPTO INFUSION. REPORTS NO CONERNS. DENIES N/V/DIARRHEA, FEVER/CHILLS. STATES EATING/DRINKING WELL. BP QUITE LOW AGAIN TODAY, TAKEN A COUPLE TIMES WITH MACHINE THEN MANUALLY AND ONLY 65/41. PT DENIES FEELING SYMPTOMATIC AND LOOKS OK. SITTING IN WHEELCHAIR. REPORTS NO TROUBLE TRANSFERRING HIM TO/FROM CHAIR. BOTH HE AND WANT TO BE DISMISSED, DO NOT WANT TO GO TO THE ED OR BE DO ANYTHING THAT MIGHT LEAD TO AN ADMISSION. SPOKE WITH PT ABOUT IMPORTANCE OF GETTING HIS BP UP. TALKED ABOUT HIS RECENT COREG DOSE CHANGE BY DR. GERARDO LAST WEEK. DID REPORT THAT HE IS TAKING A MUSCLE RELAXANT TWICE DAILY. ENCOURAGED PT TO TRY NOT TAKING THIS TO SEE IF HIS BP IMPROVES. ALLOWED PT PER HIS DECISION TO BE DISMISSED. CALLED BOTH DR. GERARDO'S NURSE, SYMONE, AND SENT HER HIS BP TRENDS. SHE SAID SHE WOULD SPEAK WITH DR. GERARDO AND REACH OUT TO PATIENT AGAIN TODAY. CALLED DR. ROHAN CARRENO AT THIS TIME TO REPORT BP'S OVER THE LAST COUPLE WEEKS. HE WOULD LIKE FOR PT TO RECEIVE SOME FLUIDS TOMORROW, HAVE LABS DONE, BP MEASURED AND GET AN UPDATE ON THIS PATIENT PRIOR TO HIS DISMISSAL TOMORROW. ORDER RECEIVED, PT CALLED AND NOTIFIED OF THIS PLAN. PT WILL RETURN IN THE MORNING.
== END ==
LOC: OPONC 09:09
PROVIDERS: ATTEND Specialist
DX: T87.44 Infection of amputation stump, left lower extremity (principal); Y83.5 Amputation of limb(s) as the cause of abnormal reaction of the patient, or of later complication, without mention of misadventure at the time of the procedure
CPT/HCPCS: 95000

== ENCOUNTER → 2020-07-17 | Outpatient (CLI) | payer OTHER ==
[2020-07-17 10:19] LABS: HEMATOCRIT 34.2 % (42.0-52.0); HEMOGLOBIN 11.4 gm/dL (14.0-18.0); MCH 29.4 pg (26.0-34.0); MCHC 33.2 g/dL (28.0-37.0); MCV 88.3 fL (80.0-100.0); RBC 3.87 mil/uL (4.50-6.00); RDW 20.8 % (10.5-14.5); WBC 12.8 thou/uL (4.0-11.0)
[2020-07-17 10:39] LABS: CREATININE 0.6 mg/dL (0.7-1.3); TOTAL BILIRUBIN 0.4 mg/dL (0.2-1.0); TOTAL PROTEIN 8.1 g/dL (6.4-8.2)
[2020-07-17 13:20] LABS: URINE BILIRUBIN NEGATIVE (Negative); URINE BLOOD NEGATIVE (Negative); URINE CLARITY CLEAR; URINE COLOR YELLOW; URINE GLUCOSE-RANDOM* NEGATIVE (Negative); URINE KETONES NEGATIVE (Negative); URINE LEUKOCYTES-REFLEX NEGATIVE (Negative); URINE NITRITE-REFLEX NEGATIVE (Negative); URINE PROTEIN (DIPSTICK) NEGATIVE (Negative); URINE UROBILINOGEN 0.2 E.U./dl (0.2-1.0)
[2020-07-17 13:23] VITALS: BP 123/79
--- NOTE | 2020-07-17 13:36 | NUR ---
IN FOR DAILY DAPTOMYCIN INFUSION. STATED FEELING OK. DENIED DIARRHEA, FEVER/CHILLS, NAUSEA. STILL WITH LT STUMP #6 PAIN WHICH IS RELIEVED WITH NORCO AND MUSCLE RELAXERS. PATIENT DID NOT TAKE HIS MUSCLE RELAXER OR NORCO BEFORE COMING TODAY TO SEE IF THIS WOULD HELP WITH HIS LOW BLOOD PRESSURES. BP 123/79, SO MUCH BETTER. LABS DRAWN FROM PICC LINE WITHOUT DIFFICULTY. TOLERATED INFUSION WITHOUT INCIDENT. CALLED RESULTS OF LABS AND BP TO DR. CARRENO. NEW ORDERS RECEIVED. UA AND BLOOD CULTURES COLLECTED AND SENT TO LAB. DR. CARRENO TO SEE PATIENT HERE IN CLINIC TOMORROW. DISMISSED IN STABLE CONDITION.
== END ==
LOC: OPONC 09:21
PROVIDERS: ATTEND Specialist
DX: T87.44 Infection of amputation stump, left lower extremity (principal)
CPT/HCPCS: 95000

== ENCOUNTER → 2020-07-18 | Outpatient (CLI) | payer OTHER ==
--- NOTE | ~2020-07-18 | HC ---
[facility] [place] [address] CONSULTATION Name: GLADYS VILLATORO Room #: REG [facility].#: [id number] Admission: 07/18/20 Attend Phys: Umesh Scruggs MD Discharge: Date of : 55 Report #: [id number] THIS REPORT FOR: cc: Manish Guevara MD, John MD Geha,Umesh Mitchell MD ~ DATE OF SERVICE: 07/18/2020 REASON FOR CONSULTATION: Left BKA, corynebacterium, surgical site infection. HISTORY OF PRESENT ILLNESS: The patient underwent revision surgery to his left BKA on 06/26/2020 with cultures revealing corynebacterium. He remains on daptomycin via left upper extremity PICC, which is functioning well. His pain is reasonably controlled. His stump wound continues to epithelialize. No increased drainage. No fever, chills or sweats. Overall, he feels well, although he has noticed sinus congestion and rhinorrhea. He feels due to his seasonal allergies. He has had poor oral intake including solids and liquids. Nursing has noticed hypotension on his evaluation when he comes in for his infusions. His Flexeril and his antihypertensive therapy have been placed on hold. He has had no fever. Otherwise, feels well. REVIEW OF SYSTEMS: A 14-point review of systems was negative other than what has been described above. PHYSICAL EXAMINATION: VITAL SIGNS: He is afebrile. Blood pressure today was 84/51 with a heart rate of 60, oxygen saturation 98%. GENERAL: He was sitting in his chair, in no distress. SKIN: Without rash. His left BKA stump wound was clean with good granulation tissue at the base and epithelializing nicely. There was no fluctuance. There was minimal tenderness to the region. EXTREMITIES: Left upper extremity PICC without erythema or drainage. CHEST: Clear. HEART: Irregular without murmur. ABDOMEN: Soft and nontender. LABORATORY STUDIES: Blood cultures were drawn yesterday are negative to date. Urinalysis was unremarkable. Sedimentation rate 106, creatinine is 0.6 with a BUN of 26. Liver function tests normal. Hemoglobin is 11.4, WBC 12.8, and platelet 258,000. IMPRESSION AND PLAN: Surgical site infection, left below-knee amputation, status post revision surgery. He is now 3 weeks into his treatment course. Has hypotension that I suspect more related to dehydration. At this point, the [facility] [address] [place] [address] CONSULTATION Name: GLADYS VILLATORO Room #: REG [facility]#: [id number] Admission: 07/18/20 Attend Phys: Umesh Scruggs MD Discharge: Date of : 55 Report #: [id number] patient is relatively asymptomatic and his concurs that he has had very low intake. We will therefore reinforce need for fluids and nutritional support. We will monitor his blood pressure and vital signs, next visit tomorrow and reassess. He will stay on his current antibiotic program and repeat outpatient clinic evaluation in 1 week. By: 1400 1812 Umesh Scruggs MD /rosas
[2020-07-18 15:07] VITALS: BP 84/51
--- NOTE | 2020-07-18 15:09 | NUR ---
IN FOR DAILY DAPTOMYCIN INFUSION FOR LT BKA INFECTION. STATED FEELING TERRIBLE TODAY BECAUSE HE COULD NOT SLEEP LAST NIGHT DUE TO NASAL CONGESTION. STATED BLOWING OUT CLEAR FLUID. GAVE PATIENT A ZYRTEC WHILE HERE IN CLINIC. PATIENT STATED HAS NOT BEEN EATING OR DRINKING MUCH FOR THE PAST COUPLE OF DAYS. BP 84/51 TODAY. [address]IC[address] DR[address] CARRENO VISITED AND AWARE OF BP. NEW ORDERS WRITTEN FOR PRN IV FLUIDS IF SYSTOLIC LESS THAN 100. ALSO ENCOURAGED PATIENT TO DRINK 2 LITERS OF GATORADE A DAY. OTHERWISE DENIED FEVER/CHILLS, DIARRHEA, NAUSEA. TOLERATED INFUSION WITHOUT INCIDENT. LT STUMP WOUND LOOKS GOOD, PINK GRANULATION TISSUE NOTED. NO DRAINAGE OR REDNESS. NO EDEMA. CHANGING DRESSINGS AT HOME. ALSO WOUND CARE NURSE VISITS AT HOME. PLAN IS TO CONTINUE THE SAME FOR ANOTHER WEEK. WILL REPEAT CBC ON TUESDAY. DISMISSED IN STABLE CONDITION.
== END ==
LOC: OR 12:16
PROVIDERS: ATTEND Specialist
DX: T87.44 Infection of amputation stump, left lower extremity (principal)
CPT/HCPCS: 95000

== ENCOUNTER → 2020-07-19 | Outpatient (CLI) | payer OTHER ==
[2020-07-19 11:31] VITALS: BP 82/51
--- NOTE | 2020-07-19 12:19 | NUR ---
IN FOR DAILY DAPTOMYCIN INFUSION FOR LEFT BKA INFECTION. STATED FEELING MUCH BETTER TODAY. NASAL CONGESTION MUCH IMPROVED. BP 82/51 SO 500ML NS IV GIVEN PER STANDING ORDER. TOLERATED DAPTOMYCIN WITHOUT INCIDENT. PATIENT STATED HAS BEEN EATING AND DRINKING BETTER SINCE YESTERDAY. WILL CONTINUE TO MONITOR BP DAILY. DISMISSED IN STABLE CONDITION.
== END ==
LOC: OPONC 11:30
PROVIDERS: ATTEND Specialist
DX: T87.44 Infection of amputation stump, left lower extremity (principal)
CPT/HCPCS: 95000

== ENCOUNTER → 2020-07-20 | Outpatient (CLI) | payer OTHER ==
[2020-07-20 10:50] VITALS: BP 98/52
--- NOTE | 2020-07-20 11:35 | NUR ---
IN FOR DAILY DAPTOMYCIN INFUSION. STATED FEELING WELL AND HAS BEEN DRINKING AND EATING GOOD. BP 98/52. TOLERATED INFUSION WITHOUT INCIDENT. DISMISSED IN GOOD CONDITION.
== END ==
LOC: OPONC 11:52
PROVIDERS: ATTEND Specialist
DX: T87.44 Infection of amputation stump, left lower extremity (principal); Y83.5 Amputation of limb(s) as the cause of abnormal reaction of the patient, or of later complication, without mention of misadventure at the time of the procedure
CPT/HCPCS: 95000

== ENCOUNTER → 2020-07-21 | Outpatient (CLI) | payer OTHER ==
[2020-07-21 10:10] VITALS: BP 103/61
--- NOTE | 2020-07-21 10:50 | NUR ---
HERE FOR DAILY IV DAPTOMYCIN. REPORTS DOING ABOUT THE SAME. DENIES N/V/DIARRHEA, FEVER/CHILLS, DIZZINESS OR ANY ADDITIONAL WEAKNESS. STATES INCREASING FLUID INTAKE AND IS IN CONTACT WITH DR. GERARDO'S NURSE, SYMONE, MAMADOU COREG JOSE. BP 103/61 TODAY BUT HEART RATE IS UP TO 112. CBC DRAWN ORDERED. PT TOLERATED DAPTO WITHOUT INCIDENT. NO ADDITIONAL FLUIDS GIVEN TODAY. DISMISSED IN STABLE CONDITION. WILL RETURN AGAIN IN THE MORNING.
[2020-07-21 11:05] LABS: HEMATOCRIT 34.5 % (42.0-52.0); HEMOGLOBIN 11.5 gm/dL (14.0-18.0); MCH 29.8 pg (26.0-34.0); MCHC 33.3 g/dL (28.0-37.0); MCV 89.6 fL (80.0-100.0); RBC 3.84 mil/uL (4.50-6.00); RDW 20.7 % (10.5-14.5); WBC 9.4 thou/uL (4.0-11.0)
== END ==
LOC: OPONC 08:59
PROVIDERS: ATTEND Specialist
DX: T87.44 Infection of amputation stump, left lower extremity (principal)
CPT/HCPCS: 95000

== ENCOUNTER → 2020-07-22 | Outpatient (CLI) | payer OTHER ==
[2020-07-22 10:14] VITALS: BP 102/73
--- NOTE | 2020-07-22 10:52 | NUR ---
IN FOR DAILY DAPTOMYCIN INFUSION. STATED FEELING WELL TODAY. BP 102/73, NO FLUIDS NEEDED. PATIENT STATED EATING AND DRINKING WELL. DENIED N/V, DIARRHEA, F/C. TOLERATED INFUSION WITHOUT INCIDENT. TO RETURN TOMORROW. DISMISSED IN STABLE CONDITION.
== END ==
LOC: OPONC 08:59
PROVIDERS: ATTEND Specialist
DX: T87.44 Infection of amputation stump, left lower extremity (principal)
CPT/HCPCS: 95000

== ENCOUNTER → 2020-07-23 | Outpatient (CLI) | payer OTHER ==
[2020-07-23 09:45] VITALS: BP 93/72
[2020-07-23 10:00] VITALS: BP 126/80
--- NOTE | 2020-07-23 10:25 | NUR ---
HERE FOR DAILY IV DAPTOMYCIN INFUSION. UPON ARRIVAL BP LOW AT 93/72. PT DENIES FEELING SYMPTOMATIC--DENIES DIZZINESS OR FEELING EXTRA WEAK. REPORTS PT IS DOING WELL AT HOME, DRINKING WELL. CHECKED BP AGAIN AND UP TO 126/80. HEART RATE IRREGULAR AND TACHY. ASKED PT/ IF THEY HAVE BEEN FOLLOWING DR. GERARDO'S ADVICE ON TAKING COREG. PER THEIR UNDERSTANDING, HE IS TO HOLD THE COREG WHEN BP IS LOW. PT STATES LAST DOSE WAS ON 07/16. THIS NURSE WILL CALL OFFICE TODAY TO REPORT LATEST BP TREND AND MAKE SURE DR. GERARDO IS AWARE HE HAS NOT BEEN TAKING HIS COREG. ENCOURAGED PT TO MAKE A F/U APPT WITH DR. GERARDO BUT THERE IS HESITATION BECAUSE CURRENTLY HIS MEDICARE WILL NOT COVER THE COST OF THE VISIT. PT DENIES N/V/DIARRHEA, FEVER/CHILLS. TOLERATED DAPTO TODAY WITHOUT INCIDENT. NO EXTRA FLUIDS GIVEN. DISMISSED IN STABLE CONDITION. SCHEDULED TO RETURN AGAIN IN THE MORNING.
== END ==
LOC: OPONC 09:20
PROVIDERS: ATTEND Specialist
DX: T87.44 Infection of amputation stump, left lower extremity (principal); Y83.5 Amputation of limb(s) as the cause of abnormal reaction of the patient, or of later complication, without mention of misadventure at the time of the procedure
CPT/HCPCS: 95000

== ENCOUNTER → 2020-07-24 | Outpatient (CLI) | payer OTHER ==
[2020-07-24 10:18] LABS: HEMATOCRIT 34.8 % (42.0-52.0); HEMOGLOBIN 11.4 gm/dL (14.0-18.0); MCH 29.5 pg (26.0-34.0); MCHC 32.8 g/dL (28.0-37.0); MCV 89.9 fL (80.0-100.0); RBC 3.87 mil/uL (4.50-6.00); RDW 20.4 % (10.5-14.5); WBC 9.9 thou/uL (4.0-11.0)
[2020-07-24 10:37] LABS: ALBUMIN 3.1 g/dL (3.4-5.0); CALCIUM 9.8 mg/dL (8.5-10.1); POTASSIUM 4.3 mmol/L (3.5-5.1); TOTAL BILIRUBIN 0.5 mg/dL (0.2-1.0); TOTAL PROTEIN 7.5 g/dL (6.4-8.2)
[2020-07-24 14:55] VITALS: BP 99/64
--- NOTE | 2020-07-24 14:59 | NUR ---
IN FOR DAILY DAPTOMYCIN INFUSION. STATED FEELING WELL. DENIED PAIN, N/V, DIARRHEA, FEVER/CHILLS, MUSCLE WEAKNESS. TOLERATED INFUSION WITHOUT INCIDENT. TO RETURN TOMORROW FOR THE SAME. DISMISSED IN STABLE CONDITION. RODRIGUEZ LABS FROM PICC LINE WITHOUT DIFFICULTY.
== END ==
LOC: OPONC 09:01
PROVIDERS: ATTEND Specialist
DX: T87.44 Infection of amputation stump, left lower extremity (principal)
CPT/HCPCS: 95000

== ENCOUNTER → 2020-07-25 | Outpatient (CLI) | payer OTHER ==
[2020-07-25 13:35] VITALS: BP 109/67
--- NOTE | 2020-07-25 14:40 | NUR ---
PT HERE FOR DAILY IV DAPTOMYCIN INFUSION. REPORTS DOING WELL, EATING AND DRINKING WELL. DENIES N/V DIARRHEA, FEVER/CHILLS. TOLERATED INFUSION WITHOUT INCIDENT. SEEN BY DR. CARRENO WITH ORDERS TO CONTINUE FOR ANOTHER WEEK. WOULD LOOKS GOOD. SAW WOUND CARE TODAY PRIOR TO THIS VISIT. PT BACK ON COREG AFTER SPEAKING WITH DR. GERARDO'S NURSE AGAIN YESTERDAY. DISMISSED IN STABLE CONDITION. WILL RETURN AGAIN IN THE MORNING.
== END ==
LOC: OPONC 08:31
PROVIDERS: ATTEND Specialist
DX: T87.44 Infection of amputation stump, left lower extremity (principal)
CPT/HCPCS: 95000

== ENCOUNTER → 2020-07-25 | Outpatient (CLI) | payer OTHER | LOC: HYPER 10:14 | PROVIDERS: ATTEND Emergency Medicine Emergency Medical Services | DX: T87.89 Other complications of amputation stump (principal); E11.621 Type 2 diabetes mellitus with foot ulcer; L89.613 Pressure ulcer of right heel, stage 3; L97.411 Non-pressure chronic ulcer of right heel and midfoot limited to breakdown of skin; S90.821D Blister (nonthermal), right foot, subsequent encounter; E11.628 Type 2 diabetes mellitus with other skin complications; K61.1 Rectal abscess; R23.4 Changes in skin texture; L84 Corns and callosities; K43.2 Incisional hernia without obstruction or gangrene; N50.1 Vascular disorders of male genital organs; K43.9 Ventral hernia without obstruction or gangrene; I50.9 Heart failure, unspecified; F41.9 Anxiety disorder, unspecified; F32.9 Major depressive disorder, single episode, unspecified; F17.290 Nicotine dependence, other tobacco product, uncomplicated; Z79.01 Long term (current) use of anticoagulants; Z79.4 Long term (current) use of insulin; Z89.411 Acquired absence of right great toe; X58.XXXD Exposure to other specified factors, subsequent encounter; Y83.5 Amputation of limb(s) as the cause of abnormal reaction of the patient, or of later complication, without mention of misadventure at the time of the procedure ==

== ENCOUNTER → 2020-07-26 | Outpatient (CLI) | payer OTHER ==
[2020-07-26 11:29] VITALS: BP 110/73
--- NOTE | 2020-07-26 11:31 | NUR ---
HERE FOR DAILY IV DAPTOMYCIN INFUSION. REPORTS DOING WELL. DENIES N/V/DIARRHEA, FEVER/CHILLS. PAIN BETTER. NO CONCERNS NOTED. TOLERATED DAPTO WITHOUT INCIDENT. DISMISSED IN STABLE CONDITION. SCHEDULED TO RETURN AGAIN IN THE MORNING.
== END ==
LOC: OPONC 08:40
PROVIDERS: ATTEND Specialist
DX: T87.44 Infection of amputation stump, left lower extremity (principal)
CPT/HCPCS: 95000

== ENCOUNTER → 2020-07-27 | Outpatient (CLI) | payer OTHER ==
[2020-07-27 11:05] VITALS: BP 119/68
--- NOTE | 2020-07-27 11:26 | NUR ---
HERE FOR DAILY IV DAPTOMYCIN INFUSION. REPORTS DOING WELL, FEELING WELL. NO CONCERNS NOTED. EATING/DRINKING WELL. DENIES N/V/DIARRHEA, FEVER/CHILLS. TOLERATED INFUSION WITHOUT INCIDENT. DISMISSED IN STABLE CONDITION. SCHEDULED TO RETURN IN THE MORNING.
== END ==
LOC: OPONC 08:41
PROVIDERS: ATTEND Specialist
DX: T87.44 Infection of amputation stump, left lower extremity (principal); Y83.5 Amputation of limb(s) as the cause of abnormal reaction of the patient, or of later complication, without mention of misadventure at the time of the procedure
CPT/HCPCS: 95000

== ENCOUNTER → 2020-07-28 | Outpatient (CLI) | payer OTHER ==
[2020-07-28 10:30] VITALS: BP 121/79
--- NOTE | 2020-07-28 10:30 | NUR ---
HERE FOR DAILY IV DAPTOMYCIN INFUSION. REPORTS DOING WELL, NO CONCERNS NOTED. DENIES N/V/DIARRHEA, FEVER/CHILLS. TOLERATED INFUSION WITHOUT INCIDENT. DISMISSED IN STABLE CONDITION. SCHEDULED TO RETURN AGAIN IN THE MORNING.
== END ==
LOC: OPONC 08:43
PROVIDERS: ATTEND Specialist
DX: T87.44 Infection of amputation stump, left lower extremity (principal)
CPT/HCPCS: 95000

== ENCOUNTER → 2020-07-29 | Outpatient (CLI) | payer OTHER ==
[2020-07-29 13:28] VITALS: BP 117/80
--- NOTE | 2020-07-29 13:30 | NUR ---
IN FOR DAILY DAPTOMYCIN INFUSION FOR LT BKA INFECTION. STATED FEELING GOOD TODAY. BP VERY GOOD. TOLERATED INFUSION WITHOUT INCIDENT. DENIED NAUSEA, DIARRHEA, FEVER, CHILLS, MUSCLE WEAKNESS. TO RETURN TOMORROW FOR THE SAME. PATIENT STATED DR. CARRENO SAID THEY WILL BE DONE WITH INFUSIONS IN 2 WEEKS. DISMISSED IN STABLE CONDITION.
== END ==
LOC: OPONC 09:43
PROVIDERS: ATTEND Specialist
DX: T87.44 Infection of amputation stump, left lower extremity (principal)
CPT/HCPCS: 95000

== ENCOUNTER → 2020-07-30 | Outpatient (CLI) | payer OTHER ==
[2020-07-30 09:45] VITALS: BP 105/72
--- NOTE | 2020-07-30 10:25 | NUR ---
HERE FOR DAILY IV DAPTOMYCIN INFUSION. REPORTS DOING WELL. TOLERATING INFUSIONS WELL. DENIES N/V/DIARRHEA, FEVER/CHILLS. DISMISSED IN STABLE CONDITION. SCHEDULED TO RETURN AGAIN TOMORROW.
== END ==
LOC: OPONC 09:05
PROVIDERS: ATTEND Specialist
DX: T87.44 Infection of amputation stump, left lower extremity (principal); Y83.5 Amputation of limb(s) as the cause of abnormal reaction of the patient, or of later complication, without mention of misadventure at the time of the procedure
CPT/HCPCS: 95000

== ENCOUNTER → 2020-07-31 | Outpatient (CLI) | payer OTHER ==
[2020-07-31 10:11] LABS: HEMATOCRIT 33.6 % (42.0-52.0); HEMOGLOBIN 11.1 gm/dL (14.0-18.0); MCHC 32.9 g/dL (28.0-37.0); MCV 91.3 fL (80.0-100.0); RBC 3.68 mil/uL (4.50-6.00); RDW 19.5 % (10.5-14.5); WBC 9.3 thou/uL (4.0-11.0)
[2020-07-31 10:23] LABS: ALBUMIN 2.7 g/dL (3.4-5.0); CALCIUM 9.3 mg/dL (8.5-10.1); CREATININE 0.7 mg/dL (0.7-1.3); POTASSIUM 5.6 mmol/L (3.5-5.1); TOTAL BILIRUBIN 0.2 mg/dL (0.2-1.0); TOTAL PROTEIN 7.1 g/dL (6.4-8.2)
[2020-07-31 12:16] VITALS: BP 123/79
--- NOTE | 2020-07-31 12:20 | NUR ---
IN FOR DAPTOMYCIN INFUSION FOR LT BKA INFECTION. PATIENT STATED FEELING WELL. DENIED NAUSEA, DIARRHEA, FEVER, CHILLS, MUSCLE PAIN OR WEAKNESS. RODRIGUEZ LABS FROM PICC LINE WITHOUT DIFFICULTY. BP GOOD. TOLERATED INFUSION WITHOUT INCIDENT. TO RETURN TOMORROW TO SEE DR. CARRENO. DISMISSED IN STABLE CONDITION.
== END ==
LOC: OPONC 08:43
PROVIDERS: ATTEND Specialist
DX: T87.44 Infection of amputation stump, left lower extremity (principal)
CPT/HCPCS: 95000

== ENCOUNTER → 2020-08-01 | Outpatient (CLI) | payer OTHER ==
[2020-08-01 16:22] VITALS: BP 110/69
--- NOTE | 2020-08-01 17:18 | NUR ---
IN FOR DAILY DAPTOMYCIN INFUSION FOR LT BKA INFECTION AND TO SEE DR. CARRENO. DENIED N/V, F/C, MUSCLE WEAKNESS OR PAIN. TOLERATED INFUSION WITHOUT INCIDENT. DR. CARRENO VISITED. THE PLAN IS TO CONTINUE THE SAME FOR 1 MORE WEEK. PICC DRESSING CHANGED. PICC SITE WNL. INSTRUCTED TO REPORT TO ED FOR WEEKEND INFUSIONS. DISMISSED IN STABLE CONDITION.
== END ==
LOC: OPONC 11:04
PROVIDERS: ATTEND Specialist
DX: T87.44 Infection of amputation stump, left lower extremity (principal)
CPT/HCPCS: 95000

== ENCOUNTER → 2020-08-02 | Outpatient (CLI) | payer OTHER | LOC: OPONC 12:00 | PROVIDERS: ATTEND Specialist | DX: T87.44 Infection of amputation stump, left lower extremity (principal) | CPT/HCPCS: 95000 ==

== ENCOUNTER → 2020-08-03 | Outpatient (CLI) | payer OTHER | LOC: OPONC 12:00 | PROVIDERS: ATTEND Specialist | DX: T87.44 Infection of amputation stump, left lower extremity (principal) | CPT/HCPCS: 95000 ==

== ENCOUNTER → 2020-08-04 | Outpatient (CLI) | payer OTHER | LOC: OPONC 12:00 | PROVIDERS: ATTEND Specialist | DX: T87.44 Infection of amputation stump, left lower extremity (principal) | CPT/HCPCS: 95000 ==

== ENCOUNTER → 2020-08-05 | Outpatient (CLI) | payer OTHER ==
[2020-08-05 10:14] VITALS: BP 118/69
== END ==
LOC: OPONC 09:23
PROVIDERS: ATTEND Specialist
DX: T87.44 Infection of amputation stump, left lower extremity (principal)
CPT/HCPCS: 95000

== ENCOUNTER → 2020-08-06 | Outpatient (CLI) | payer OTHER ==
[2020-08-06 10:05] VITALS: BP 126/75
== END ==
LOC: OPONC 09:30
PROVIDERS: ATTEND Specialist
DX: T87.44 Infection of amputation stump, left lower extremity (principal)
CPT/HCPCS: 95000

== ENCOUNTER → 2020-08-07 | Outpatient (CLI) | payer OTHER ==
[2020-08-07 10:11] VITALS: BP 106/64
[2020-08-07 10:29] LABS: HEMATOCRIT 34.2 % (42.0-52.0); HEMOGLOBIN 11.4 gm/dL (14.0-18.0); MCH 30.5 pg (26.0-34.0); MCHC 33.2 g/dL (28.0-37.0); MCV 91.8 fL (80.0-100.0); RBC 3.73 mil/uL (4.50-6.00); RDW 18.6 % (10.5-14.5); WBC 11.4 thou/uL (4.0-11.0)
[2020-08-07 10:48] LABS: ALBUMIN 2.7 g/dL (3.4-5.0); CALCIUM 9.2 mg/dL (8.5-10.1); CREATININE 0.8 mg/dL (0.7-1.3); POTASSIUM 4.7 mmol/L (3.5-5.1); TOTAL BILIRUBIN 0.3 mg/dL (0.2-1.0)
== END ==
LOC: OPONC 09:27
PROVIDERS: ATTEND Specialist
DX: T87.44 Infection of amputation stump, left lower extremity (principal)
CPT/HCPCS: 95000

== ENCOUNTER → 2020-08-08 | Outpatient (CLI) | payer OTHER ==
[2020-08-08 15:16] VITALS: BP 116/71
--- NOTE | 2020-08-08 15:20 | NUR ---
IN FOR DAILY DAPTOMYCIN INFUSION FOR LT BKA INFECTION. STATED FEELING WELL. DENIED N/V, FEVER/CHILLS, DIARRHEA. DR. CARRENO VISITED. NEW ORDERS WRITTEN. TOLERATED INFUSION WITHOUT INCIDENT. REMOVED PICC LINE WITH TIP INTACT. HELD PRESSURE FOR 5 MINUTES AND APPLIED COBAN PRESSURE DRESSING. PRESCRIPTION GIVEN FOR DOXYCYCLINE. SCHEDULED TO RETURN IN 2 WEEKS FOR CLINIC VISIT. DISMISSED IN STABLE CONDITION.
== END ==
LOC: OPONC 12:23
PROVIDERS: ATTEND Specialist
DX: T87.44 Infection of amputation stump, left lower extremity (principal)
CPT/HCPCS: 95000

== ENCOUNTER → 2020-08-11 | Outpatient (CLI) | payer OTHER | LOC: HYPER 08:09 | PROVIDERS: ATTEND Emergency Medicine Emergency Medical Services | DX: T87.89 Other complications of amputation stump (principal); E11.621 Type 2 diabetes mellitus with foot ulcer; L89.613 Pressure ulcer of right heel, stage 3; L97.411 Non-pressure chronic ulcer of right heel and midfoot limited to breakdown of skin; E11.622 Type 2 diabetes mellitus with other skin ulcer; L89.313 Pressure ulcer of right buttock, stage 3; L98.411 Non-pressure chronic ulcer of buttock limited to breakdown of skin; S90.821D Blister (nonthermal), right foot, subsequent encounter; L84 Corns and callosities; K61.1 Rectal abscess; K43.2 Incisional hernia without obstruction or gangrene; K43.9 Ventral hernia without obstruction or gangrene; N50.1 Vascular disorders of male genital organs; E66.9 Obesity, unspecified; R23.4 Changes in skin texture; I50.9 Heart failure, unspecified; F17.290 Nicotine dependence, other tobacco product, uncomplicated; F41.9 Anxiety disorder, unspecified; F32.9 Major depressive disorder, single episode, unspecified; Z79.01 Long term (current) use of anticoagulants; Z79.4 Long term (current) use of insulin; Z68.29 Body mass index [BMI] 29.0-29.9, adult; X58.XXXD Exposure to other specified factors, subsequent encounter; Y83.5 Amputation of limb(s) as the cause of abnormal reaction of the patient, or of later complication, without mention of misadventure at the time of the procedure ==

== ENCOUNTER → 2020-08-22 | Outpatient (CLI) | payer OTHER ==
[2020-08-22 13:00] VITALS: BP 117/67
[2020-08-22 13:26] LABS: HEMATOCRIT 36.3 % (42.0-52.0); HEMOGLOBIN 11.8 gm/dL (14.0-18.0); MCH 30.3 pg (26.0-34.0); MCHC 32.6 g/dL (28.0-37.0); MCV 92.9 fL (80.0-100.0); RBC 3.91 mil/uL (4.50-6.00); WBC 12.6 thou/uL (4.0-11.0)
[2020-08-22 13:37] LABS: ALBUMIN 2.9 g/dL (3.4-5.0); CALCIUM 9.4 mg/dL (8.5-10.1); CREATININE 0.9 mg/dL (0.7-1.3); POTASSIUM 4.1 mmol/L (3.5-5.1); TOTAL BILIRUBIN 0.2 mg/dL (0.2-1.0); TOTAL PROTEIN 7.5 g/dL (6.4-8.2)
== END ==
LOC: OPONC 12:32 → EDSTATUS 12:38 → OPONC 12:43
PROVIDERS: ATTEND Specialist
DX: T87.44 Infection of amputation stump, left lower extremity (principal)
CPT/HCPCS: 91018

== ENCOUNTER → 2020-08-25 | Outpatient (CLI) | payer OTHER | LOC: HYPER 08:02 | PROVIDERS: ATTEND Emergency Medicine Emergency Medical Services | DX: T87.89 Other complications of amputation stump (principal); E11.621 Type 2 diabetes mellitus with foot ulcer; L89.613 Pressure ulcer of right heel, stage 3; L89.313 Pressure ulcer of right buttock, stage 3; L97.411 Non-pressure chronic ulcer of right heel and midfoot limited to breakdown of skin; E11.622 Type 2 diabetes mellitus with other skin ulcer; L89.323 Pressure ulcer of left buttock, stage 3; L98.411 Non-pressure chronic ulcer of buttock limited to breakdown of skin; L89.893 Pressure ulcer of other site, stage 3; S90.821D Blister (nonthermal), right foot, subsequent encounter; L84 Corns and callosities; I50.9 Heart failure, unspecified; E66.9 Obesity, unspecified; N50.1 Vascular disorders of male genital organs; R23.4 Changes in skin texture; K43.9 Ventral hernia without obstruction or gangrene; K61.1 Rectal abscess; K43.2 Incisional hernia without obstruction or gangrene; F41.9 Anxiety disorder, unspecified; F17.290 Nicotine dependence, other tobacco product, uncomplicated; F32.9 Major depressive disorder, single episode, unspecified; Z79.01 Long term (current) use of anticoagulants; Z79.4 Long term (current) use of insulin; Z68.29 Body mass index [BMI] 29.0-29.9, adult; X58.XXXD Exposure to other specified factors, subsequent encounter; Y83.5 Amputation of limb(s) as the cause of abnormal reaction of the patient, or of later complication, without mention of misadventure at the time of the procedure ==

== ENCOUNTER → 2020-09-05 | Outpatient (CLI) | payer OTHER ==
[2020-09-05 13:00] VITALS: BP 100/61
[2020-09-05 13:03] LABS: HEMATOCRIT 34.6 % (42.0-52.0); HEMOGLOBIN 11.6 gm/dL (14.0-18.0); MCH 31.5 pg (26.0-34.0); MCHC 33.6 g/dL (28.0-37.0); MCV 93.8 fL (80.0-100.0); RBC 3.69 mil/uL (4.50-6.00); RDW 14.9 % (10.5-14.5); WBC 9.4 thou/uL (4.0-11.0)
[2020-09-05 13:25] LABS: ALBUMIN 2.9 g/dL (3.4-5.0); CREATININE 0.9 mg/dL (0.7-1.3); TOTAL BILIRUBIN 0.2 mg/dL (0.2-1.0); TOTAL PROTEIN 7.1 g/dL (6.4-8.2)
--- NOTE | 2020-09-05 15:49 | NUR ---
IN FOR CLINIC VISIT WITH DR. CARRENO FOR F/U OF LT BKA INFECTION. PATIENT STATED FEELING WELL, EATING AND DRINKING WELL. TOLERATING ORAL ANTIBIOTIC. DR. CARRENO VISITED. RESULTS OF US DONE 2 WEEKS AGO REVIEWED WITH PATIENT. DR. CARRENO DISCUSSED WITH PATIENT THE NEED TO WEAR A BOILER INSTALLER ON STUMP TO HELP COMPRESS AND GET RID OF FLUID. PATIENT TO SEE DR. KAYE ON TUESDAY AND SAID HE WILL TELL HIM DR. CARRENO WANTS HIM TO WEAR A BOILER INSTALLER. PATIENT LABS DONE. PATIENT TO RETURN IN 2 WEEKS FOR LAB AND ANOTHER F/U VISIT. DISMISSED IN STABLE CONDITION.
== END ==
LOC: OPONC 12:46
PROVIDERS: ATTEND Specialist
DX: T87.44 Infection of amputation stump, left lower extremity (principal)
CPT/HCPCS: 91018

== ENCOUNTER → 2020-09-08 | Outpatient (CLI) | payer OTHER | LOC: HYPER 07:39 | PROVIDERS: ATTEND Emergency Medicine Emergency Medical Services | DX: T87.89 Other complications of amputation stump (principal); E11.621 Type 2 diabetes mellitus with foot ulcer; L89.613 Pressure ulcer of right heel, stage 3; L97.411 Non-pressure chronic ulcer of right heel and midfoot limited to breakdown of skin; E11.622 Type 2 diabetes mellitus with other skin ulcer; L89.323 Pressure ulcer of left buttock, stage 3; L89.313 Pressure ulcer of right buttock, stage 3; L98.411 Non-pressure chronic ulcer of buttock limited to breakdown of skin; L89.893 Pressure ulcer of other site, stage 3; L84 Corns and callosities; I50.9 Heart failure, unspecified; E66.9 Obesity, unspecified; N50.1 Vascular disorders of male genital organs; R23.4 Changes in skin texture; K43.9 Ventral hernia without obstruction or gangrene; K61.1 Rectal abscess; K43.2 Incisional hernia without obstruction or gangrene; F41.9 Anxiety disorder, unspecified; F17.290 Nicotine dependence, other tobacco product, uncomplicated; F32.9 Major depressive disorder, single episode, unspecified; Z79.01 Long term (current) use of anticoagulants; Z79.4 Long term (current) use of insulin; Z68.29 Body mass index [BMI] 29.0-29.9, adult; Y83.5 Amputation of limb(s) as the cause of abnormal reaction of the patient, or of later complication, without mention of misadventure at the time of the procedure ==

== ENCOUNTER → 2020-09-19 | Outpatient (CLI) | payer OTHER ==
[2020-09-19 13:47] LABS: ABSOLUTE NEUTROPHILS 10.4 thou/uL (1.4-8.2); BASOPHILS 0.5 % (0.0-2.0); HEMATOCRIT 33.3 % (42.0-52.0); HEMOGLOBIN 10.9 gm/dL (14.0-18.0); LYMPHOCYTES 14.6 % (24.0-44.0); MCH 30.6 pg (26.0-34.0); MCHC 32.8 g/dL (28.0-37.0); MCV 93.1 fL (80.0-100.0); MONOCYTES 6.8 % (1.0-8.0); PLATELET COUNT 203 thou/uL (150-400); POLYS 75.1 % (36.0-66.0); RBC 3.57 mil/uL (4.50-6.00); RDW 13.8 % (10.5-14.5); WBC 13.8 thou/uL (4.0-11.0)
[2020-09-19 14:06] LABS: ALBUMIN 2.7 g/dL (3.4-5.0); CALCIUM 9.8 mg/dL (8.5-10.1); CREATININE 1.5 mg/dL (0.7-1.3); POTASSIUM 3.7 mmol/L (3.5-5.1); TOTAL BILIRUBIN 0.2 mg/dL (0.2-1.0); TOTAL PROTEIN 6.9 g/dL (6.4-8.2)
[2020-09-19 16:58] VITALS: BP 83/52
== END ==
LOC: OPONC 11:43
PROVIDERS: ATTEND Specialist
DX: T87.44 Infection of amputation stump, left lower extremity (principal)
CPT/HCPCS: 91018

== ENCOUNTER → 2020-09-22 | Outpatient (CLI) | payer OTHER | LOC: HYPER 08:04 | PROVIDERS: ATTEND Emergency Medicine Emergency Medical Services | DX: T87.89 Other complications of amputation stump (principal); E11.622 Type 2 diabetes mellitus with other skin ulcer; L89.313 Pressure ulcer of right buttock, stage 3; L89.323 Pressure ulcer of left buttock, stage 3; L98.411 Non-pressure chronic ulcer of buttock limited to breakdown of skin; E11.621 Type 2 diabetes mellitus with foot ulcer; L89.613 Pressure ulcer of right heel, stage 3; L97.411 Non-pressure chronic ulcer of right heel and midfoot limited to breakdown of skin; L89.893 Pressure ulcer of other site, stage 3; S90.821D Blister (nonthermal), right foot, subsequent encounter; K61.1 Rectal abscess; R23.4 Changes in skin texture; L84 Corns and callosities; I50.9 Heart failure, unspecified; F41.9 Anxiety disorder, unspecified; F32.9 Major depressive disorder, single episode, unspecified; Z79.01 Long term (current) use of anticoagulants; Z79.4 Long term (current) use of insulin; Z89.411 Acquired absence of right great toe; Z79.82 Long term (current) use of aspirin; X58.XXXD Exposure to other specified factors, subsequent encounter; Y83.5 Amputation of limb(s) as the cause of abnormal reaction of the patient, or of later complication, without mention of misadventure at the time of the procedure ==

== ENCOUNTER → 2020-10-24 | Outpatient (CLI) | payer OTHER | LOC: HYPER 09:34 | PROVIDERS: ATTEND Emergency Medicine Emergency Medical Services | DX: T81.89XD Other complications of procedures, not elsewhere classified, subsequent encounter (principal); E11.621 Type 2 diabetes mellitus with foot ulcer; L89.613 Pressure ulcer of right heel, stage 3; L97.411 Non-pressure chronic ulcer of right heel and midfoot limited to breakdown of skin; E11.622 Type 2 diabetes mellitus with other skin ulcer; L89.313 Pressure ulcer of right buttock, stage 3; L98.411 Non-pressure chronic ulcer of buttock limited to breakdown of skin; L89.893 Pressure ulcer of other site, stage 3; L98.491 Non-pressure chronic ulcer of skin of other sites limited to breakdown of skin; K61.1 Rectal abscess; R23.4 Changes in skin texture; K43.2 Incisional hernia without obstruction or gangrene; N50.1 Vascular disorders of male genital organs; K43.9 Ventral hernia without obstruction or gangrene; I50.9 Heart failure, unspecified; E66.9 Obesity, unspecified; F41.9 Anxiety disorder, unspecified; F32.9 Major depressive disorder, single episode, unspecified; F17.290 Nicotine dependence, other tobacco product, uncomplicated; Z68.29 Body mass index [BMI] 29.0-29.9, adult; Z79.4 Long term (current) use of insulin; Z79.01 Long term (current) use of anticoagulants; Z79.82 Long term (current) use of aspirin; Z89.612 Acquired absence of left leg above knee; Z89.411 Acquired absence of right great toe; Y83.8 Other surgical procedures as the cause of abnormal reaction of the patient, or of later complication, without mention of misadventure at the time of the procedure ==

== ENCOUNTER → 2020-10-24 | Outpatient (CLI) | payer OTHER ==
[2020-10-24 13:47] LABS: ABSOLUTE NEUTROPHILS 10.1 thou/uL (1.4-8.2); BASOPHILS 0.6 % (0.0-2.0); EOSINOPHILS 1.2 % (0.0-3.0); HEMATOCRIT 32.8 % (42.0-52.0); HEMOGLOBIN 10.6 gm/dL (14.0-18.0); LYMPHOCYTES 11.8 % (24.0-44.0); MCH 29.5 pg (26.0-34.0); MCHC 32.3 g/dL (28.0-37.0); MCV 91.2 fL (80.0-100.0); MONOCYTES 6.6 % (1.0-8.0); PLATELET COUNT 282 thou/uL (150-400); POLYS 79.8 % (36.0-66.0); RBC 3.59 mil/uL (4.50-6.00); WBC 12.6 thou/uL (4.0-11.0)
[2020-10-24 14:15] LABS: ALBUMIN 2.7 g/dL (3.4-5.0); CALCIUM 9.3 mg/dL (8.5-10.1); CREATININE 0.9 mg/dL (0.7-1.3); POTASSIUM 4.4 mmol/L (3.5-5.1); TOTAL BILIRUBIN 0.3 mg/dL (0.2-1.0)
[2020-10-24 15:13] VITALS: BP 71/49
--- NOTE | 2020-10-24 15:14 | NUR ---
IN FOR CLINIC VISIT WITH DR. CARRENO FOR FOLLOWUP OF LT STUMP INFECTION. LABS DRAWN. DR. CARRENO VISITED. PLAN IS TO RETURN IN 3 WEEKS FOR NEXT VISIT. PATIENT HAS BEEN FITTED FOR A PROSTHETIC LEG AND IS EXCITED TO START WALKING AGAIN. NO SIGNS OF INFECTION NOTED.
--- NOTE | 2020-10-25 21:48 | HC ---
[facility] [place] [address] CONSULTATION Name: GLADYS VILLATORO [id number] Admission: 10/24/20 Attend Phys: Umesh Scruggs MD Discharge: Date of : 55 Report #: [id number] THIS REPORT FOR: cc: Manish Guevara MD, John MD Geha,Umesh Mitchell MD ~ DATE OF SERVICE: 10/24/2020 INFECTIOUS DISEASE CONSULTATION REASON FOR CONSULT: Left BKA corynebacterium surgical site infection. HISTORY OF PRESENT ILLNESS: The patient underwent revision BKA on 06/26/2020 with cultures revealing corynebacterium. He completed 6 weeks of IV therapy with daptomycin followed by doxycycline, which he continues at this time with mild GI side effects, mostly nausea and some loose stools. Denies any fever, chills or sweats. His left BKA has been undergoing a billing and accounting staff assistant placement. He has been fitted for prosthesis. He has had no drainage from his incision. Denies any fever, chills or sweats. Otherwise, feels well. PHYSICAL EXAMINATION: VITAL SIGNS: Afebrile and hemodynamically stable. EXTREMITIES: Left BKA incision had a small eschar to the mid portion of the incision with no fluctuance. No surrounding erythema or tenderness. LABORATORY STUDIES: Reviewed, noting white count of 12,000. His sedimentation rate was 73 and CRP of 19. IMPRESSION: A 15 weeks into his treatment course, wound was healing nicely, but his inflammatory markers still are elevated. His last imaging studies by ultrasound did showed small area of hematoma in the region, too small to drain. Plan at this time would be to finish his course of antibiotics and observe. He will follow up in 3 weeks for repeat laboratory and wound check. He will contact me if changes occur prior to his scheduled visit. <ELECTRONICALLY SIGNED> By: Umesh Scruggs MD 10/25/20 2148 [id number] [id number] Umesh Scruggs MD /nt
== END ==
LOC: OPONC 14:49
PROVIDERS: ATTEND Specialist
DX: T87.44 Infection of amputation stump, left lower extremity (principal)
CPT/HCPCS: 91018

== ENCOUNTER → 2020-11-28 | Outpatient (CLI) | payer OTHER | LOC: HYPER 09:06 | PROVIDERS: ATTEND Emergency Medicine Emergency Medical Services | DX: T81.89XD Other complications of procedures, not elsewhere classified, subsequent encounter (principal); E11.621 Type 2 diabetes mellitus with foot ulcer; L89.613 Pressure ulcer of right heel, stage 3; L97.411 Non-pressure chronic ulcer of right heel and midfoot limited to breakdown of skin; E11.622 Type 2 diabetes mellitus with other skin ulcer; L89.313 Pressure ulcer of right buttock, stage 3; L98.411 Non-pressure chronic ulcer of buttock limited to breakdown of skin; L98.491 Non-pressure chronic ulcer of skin of other sites limited to breakdown of skin; L89.893 Pressure ulcer of other site, stage 3; K61.1 Rectal abscess; R23.4 Changes in skin texture; K43.2 Incisional hernia without obstruction or gangrene; N50.1 Vascular disorders of male genital organs; I50.9 Heart failure, unspecified; K43.9 Ventral hernia without obstruction or gangrene; E66.9 Obesity, unspecified; F41.9 Anxiety disorder, unspecified; F32.9 Major depressive disorder, single episode, unspecified; Z68.29 Body mass index [BMI] 29.0-29.9, adult; F17.290 Nicotine dependence, other tobacco product, uncomplicated; Z79.4 Long term (current) use of insulin; Z79.01 Long term (current) use of anticoagulants; Z79.82 Long term (current) use of aspirin; Z89.612 Acquired absence of left leg above knee; Z89.411 Acquired absence of right great toe; Y83.8 Other surgical procedures as the cause of abnormal reaction of the patient, or of later complication, without mention of misadventure at the time of the procedure ==

== ENCOUNTER → 2020-11-28 | Outpatient (CLI) | payer OTHER ==
[2020-11-28 12:30] VITALS: BP 76/42
[2020-11-28 12:56] LABS: EOSINOPHILS 1.4 % (0.0-3.0); HEMOGLOBIN 11.9 gm/dL (14.0-18.0); LYMPHOCYTES 24.7 % (24.0-44.0); MCH 29.6 pg (26.0-34.0); MCHC 33.2 g/dL (28.0-37.0); MCV 89.4 fL (80.0-100.0); MONOCYTES 6.9 % (1.0-8.0); PLATELET COUNT 268 thou/uL (150-400); RBC 4.03 mil/uL (4.50-6.00); RDW 14.2 % (10.5-14.5); WBC 13.6 thou/uL (4.0-11.0)
[2020-11-28 13:18] LABS: ALBUMIN 3.2 g/dL (3.4-5.0); CALCIUM 9.2 mg/dL (8.5-10.1); CREATININE 1.5 mg/dL (0.7-1.3); POTASSIUM 3.1 mmol/L (3.5-5.1); TOTAL BILIRUBIN 0.5 mg/dL (0.2-1.0); TOTAL PROTEIN 7.4 g/dL (6.4-8.2)
--- NOTE | 2020-11-28 17:53 | NUR ---
IN FOR CLINIC VISIT WITH DR. CARRENO FOR F/U OF LEFT STUMP INFECTION. DR. CARRENO VISITED. LEFT STUMP WOUND HEALED. PATIENT HAS BEEN FITTED FOR A PROSTHESIS AND IS VERY EXCITED ABOUT THIS. NO NEW ORDERS WRITTEN. PATIENT IS DISCHARGED WITH NO FURTHER F/U NEEDED. DR. CARRENO TOLD PATIENT IF STUMP BECOMES RED OR IF THE WOUND OPENS UP AGAIN TO CALL HIM. PATIENT STATED UNDERSTANDING. DISMISSED IN STABLE CONDITION.
--- NOTE | 2020-12-01 14:39 | HC ---
[facility] [place] [address] CONSULTATION Name: GLADYS VILLATORO Room #: [facility] Zee.#: [id number] Admission: 11/28/20 Attend Phys: Umesh Scruggs MD Discharge: Date of : 55 Report #: [id number] THIS REPORT FOR: cc: Manish Guevara MD, John MD Geha,Umesh Mitchell MD ~ DATE OF SERVICE: 11/28/2020 INFECTIOUS DISEASE FOLLOWUP OUTPATIENT CONSULTATION HISTORY OF PRESENT ILLNESS: The patient returns in followup of his left BKA corynebacterium surgical site infection. He had undergone revision BKA on 06/26/2020 with cultures revealing corynebacterium. He completed a 6-week course of IV therapy including daptomycin followed by prolonged course of doxycycline. He has been off doxycycline, now approximately one month. He continues to use a Recruiting Internship for his BKA and is now utilizing his prosthetic limb. Overall, feels well, although his arthritis has flared up significantly. He has had no increased swelling, tenderness or erythema involving the stump. I have been following him longer term because of his elevated inflammatory markers. REVIEW OF SYSTEMS: No cardiopulmonary, GI or complaints. PHYSICAL EXAMINATION: VITAL SIGNS: Afebrile and hemodynamically stable. GENERAL: He is alert and cooperative. He had evidence of extensive arthritis involving his upper and lower extremities due to rheumatoid arthritis. EXTREMITIES: His left BKA stump was without erythema. Incision line has healed. There was no fluctuance. LABORATORY STUDIES: Reviewed including ESR 55, CRP of 18, and creatinine 1.5. White count of 13.6 and hemoglobin is 11.9. IMPRESSION: The patient is 18 weeks into his treatment course with a well-healed left BKA stump. His inflammatory markers remain elevated, which I suspect is related to his rheumatoid arthritis, which is not controlled. PLAN: Will be to continue observation off antibiotics. He will return on an as needed basis. He will follow up with Rheumatology for primary care for his arthritis treatment. <ELECTRONICALLY SIGNED> By: Umesh Scurggs MD 12/01/20 1439 1433 08 Umesh Scruggs MD /nt
== END ==
LOC: OPONC 11:43
PROVIDERS: ATTEND Specialist
DX: T87.44 Infection of amputation stump, left lower extremity (principal); Y83.8 Other surgical procedures as the cause of abnormal reaction of the patient, or of later complication, without mention of misadventure at the time of the procedure
CPT/HCPCS: 91018

== ENCOUNTER → 2020-12-12 | Outpatient (CLI) | payer OTHER | LOC: HYPER 08:39 | PROVIDERS: ATTEND Emergency Medicine Emergency Medical Services | DX: T81.89XD Other complications of procedures, not elsewhere classified, subsequent encounter (principal); E11.621 Type 2 diabetes mellitus with foot ulcer; L89.613 Pressure ulcer of right heel, stage 3; L97.411 Non-pressure chronic ulcer of right heel and midfoot limited to breakdown of skin; E11.622 Type 2 diabetes mellitus with other skin ulcer; L89.313 Pressure ulcer of right buttock, stage 3; L98.411 Non-pressure chronic ulcer of buttock limited to breakdown of skin; L89.893 Pressure ulcer of other site, stage 3; L98.491 Non-pressure chronic ulcer of skin of other sites limited to breakdown of skin; K61.1 Rectal abscess; R23.4 Changes in skin texture; K43.2 Incisional hernia without obstruction or gangrene; N50.1 Vascular disorders of male genital organs; K43.9 Ventral hernia without obstruction or gangrene; I50.9 Heart failure, unspecified; E66.9 Obesity, unspecified; F41.9 Anxiety disorder, unspecified; F32.9 Major depressive disorder, single episode, unspecified; F17.290 Nicotine dependence, other tobacco product, uncomplicated; Z68.29 Body mass index [BMI] 29.0-29.9, adult; Z79.4 Long term (current) use of insulin; Z79.01 Long term (current) use of anticoagulants; Z79.82 Long term (current) use of aspirin; Z79.899 Other long term (current) drug therapy; Z89.612 Acquired absence of left leg above knee; Z89.411 Acquired absence of right great toe; Y83.8 Other surgical procedures as the cause of abnormal reaction of the patient, or of later complication, without mention of misadventure at the time of the procedure ==

== ENCOUNTER → 2020-12-26 | Outpatient (CLI) | payer OTHER | LOC: HYPER 09:09 | PROVIDERS: ATTEND Emergency Medicine Emergency Medical Services | DX: T81.89XD Other complications of procedures, not elsewhere classified, subsequent encounter (principal); E11.621 Type 2 diabetes mellitus with foot ulcer; L89.613 Pressure ulcer of right heel, stage 3; L97.411 Non-pressure chronic ulcer of right heel and midfoot limited to breakdown of skin; E11.622 Type 2 diabetes mellitus with other skin ulcer; L89.313 Pressure ulcer of right buttock, stage 3; L98.411 Non-pressure chronic ulcer of buttock limited to breakdown of skin; L89.893 Pressure ulcer of other site, stage 3; K61.1 Rectal abscess; K43.2 Incisional hernia without obstruction or gangrene; N50.1 Vascular disorders of male genital organs; K43.9 Ventral hernia without obstruction or gangrene; I50.9 Heart failure, unspecified; E66.9 Obesity, unspecified; R23.4 Changes in skin texture; F17.290 Nicotine dependence, other tobacco product, uncomplicated; F41.9 Anxiety disorder, unspecified; F32.9 Major depressive disorder, single episode, unspecified; Z68.29 Body mass index [BMI] 29.0-29.9, adult; Z79.01 Long term (current) use of anticoagulants; Z79.4 Long term (current) use of insulin; Z79.82 Long term (current) use of aspirin; Z79.899 Other long term (current) drug therapy; Z89.612 Acquired absence of left leg above knee; Z89.411 Acquired absence of right great toe; Y83.8 Other surgical procedures as the cause of abnormal reaction of the patient, or of later complication, without mention of misadventure at the time of the procedure ==

== ENCOUNTER → 2021-01-16 | Outpatient (CLI) | payer OTHER | LOC: HYPER 08:16 | PROVIDERS: ATTEND Emergency Medicine Emergency Medical Services | DX: T87.89 Other complications of amputation stump (principal); E11.621 Type 2 diabetes mellitus with foot ulcer; L89.613 Pressure ulcer of right heel, stage 3; L97.421 Non-pressure chronic ulcer of left heel and midfoot limited to breakdown of skin; E11.622 Type 2 diabetes mellitus with other skin ulcer; L89.313 Pressure ulcer of right buttock, stage 3; L98.411 Non-pressure chronic ulcer of buttock limited to breakdown of skin; S80.812D Abrasion, left lower leg, subsequent encounter; K61.1 Rectal abscess; R23.4 Changes in skin texture; I50.9 Heart failure, unspecified; F41.9 Anxiety disorder, unspecified; F32.9 Major depressive disorder, single episode, unspecified; F17.290 Nicotine dependence, other tobacco product, uncomplicated; Z79.01 Long term (current) use of anticoagulants; Z79.82 Long term (current) use of aspirin; Z79.4 Long term (current) use of insulin; Z79.899 Other long term (current) drug therapy; Z89.411 Acquired absence of right great toe; X58.XXXD Exposure to other specified factors, subsequent encounter; Y83.5 Amputation of limb(s) as the cause of abnormal reaction of the patient, or of later complication, without mention of misadventure at the time of the procedure ==

== ENCOUNTER → 2021-01-30 | Outpatient (CLI) | payer OTHER | LOC: HYPER 08:11 | PROVIDERS: ATTEND Emergency Medicine Emergency Medical Services | DX: E11.621 Type 2 diabetes mellitus with foot ulcer (principal); L89.613 Pressure ulcer of right heel, stage 3; L97.411 Non-pressure chronic ulcer of right heel and midfoot limited to breakdown of skin; E11.622 Type 2 diabetes mellitus with other skin ulcer; L89.313 Pressure ulcer of right buttock, stage 3; L89.323 Pressure ulcer of left buttock, stage 3; L98.411 Non-pressure chronic ulcer of buttock limited to breakdown of skin; S80.812D Abrasion, left lower leg, subsequent encounter; E66.9 Obesity, unspecified; K61.1 Rectal abscess; K43.2 Incisional hernia without obstruction or gangrene; K43.9 Ventral hernia without obstruction or gangrene; N50.1 Vascular disorders of male genital organs; R23.4 Changes in skin texture; I50.9 Heart failure, unspecified; F41.9 Anxiety disorder, unspecified; F32.9 Major depressive disorder, single episode, unspecified; F17.290 Nicotine dependence, other tobacco product, uncomplicated; Z79.01 Long term (current) use of anticoagulants; Z79.4 Long term (current) use of insulin; Z68.29 Body mass index [BMI] 29.0-29.9, adult; Z89.411 Acquired absence of right great toe; Z89.612 Acquired absence of left leg above knee; X58.XXXD Exposure to other specified factors, subsequent encounter ==

== ENCOUNTER → 2021-03-09 | Outpatient (CLI) | payer OTHER | LOC: HYPER 07:45 | PROVIDERS: ATTEND Emergency Medicine Emergency Medical Services | DX: E11.621 Type 2 diabetes mellitus with foot ulcer (principal); L89.613 Pressure ulcer of right heel, stage 3; L97.411 Non-pressure chronic ulcer of right heel and midfoot limited to breakdown of skin; L97.512 Non-pressure chronic ulcer of other part of right foot with fat layer exposed; E11.622 Type 2 diabetes mellitus with other skin ulcer; L89.313 Pressure ulcer of right buttock, stage 3; L89.323 Pressure ulcer of left buttock, stage 3; L98.411 Non-pressure chronic ulcer of buttock limited to breakdown of skin; S80.812D Abrasion, left lower leg, subsequent encounter; L84 Corns and callosities; E66.9 Obesity, unspecified; K61.1 Rectal abscess; K43.2 Incisional hernia without obstruction or gangrene; K43.9 Ventral hernia without obstruction or gangrene; N50.1 Vascular disorders of male genital organs; R23.4 Changes in skin texture; I50.9 Heart failure, unspecified; F41.9 Anxiety disorder, unspecified; F32.9 Major depressive disorder, single episode, unspecified; F17.290 Nicotine dependence, other tobacco product, uncomplicated; Z79.01 Long term (current) use of anticoagulants; Z79.4 Long term (current) use of insulin; Z68.29 Body mass index [BMI] 29.0-29.9, adult; Z89.411 Acquired absence of right great toe; Z89.612 Acquired absence of left leg above knee; X58.XXXD Exposure to other specified factors, subsequent encounter ==

== ENCOUNTER → 2021-04-13 | Outpatient (CLI) | payer OTHER | LOC: HYPER 07:47 | PROVIDERS: ATTEND Emergency Medicine Emergency Medical Services | DX: E11.621 Type 2 diabetes mellitus with foot ulcer (principal); L89.613 Pressure ulcer of right heel, stage 3; L97.411 Non-pressure chronic ulcer of right heel and midfoot limited to breakdown of skin; L97.512 Non-pressure chronic ulcer of other part of right foot with fat layer exposed; E11.622 Type 2 diabetes mellitus with other skin ulcer; L89.313 Pressure ulcer of right buttock, stage 3; L89.323 Pressure ulcer of left buttock, stage 3; L98.411 Non-pressure chronic ulcer of buttock limited to breakdown of skin; S80.812D Abrasion, left lower leg, subsequent encounter; L84 Corns and callosities; E66.9 Obesity, unspecified; K61.1 Rectal abscess; K43.2 Incisional hernia without obstruction or gangrene; K43.9 Ventral hernia without obstruction or gangrene; N50.1 Vascular disorders of male genital organs; R23.4 Changes in skin texture; I50.9 Heart failure, unspecified; F41.9 Anxiety disorder, unspecified; F32.9 Major depressive disorder, single episode, unspecified; F17.290 Nicotine dependence, other tobacco product, uncomplicated; Z79.01 Long term (current) use of anticoagulants; Z79.4 Long term (current) use of insulin; Z68.29 Body mass index [BMI] 29.0-29.9, adult; Z89.411 Acquired absence of right great toe; Z89.612 Acquired absence of left leg above knee; X58.XXXD Exposure to other specified factors, subsequent encounter ==

== ENCOUNTER → 2021-04-27 | Outpatient (CLI) | payer OTHER | LOC: HYPER 12:13 | PROVIDERS: ATTEND Emergency Medicine Emergency Medical Services | DX: T87.89 Other complications of amputation stump (principal); E11.622 Type 2 diabetes mellitus with other skin ulcer; L89.313 Pressure ulcer of right buttock, stage 3; L98.411 Non-pressure chronic ulcer of buttock limited to breakdown of skin; E11.621 Type 2 diabetes mellitus with foot ulcer; L89.613 Pressure ulcer of right heel, stage 3; L97.411 Non-pressure chronic ulcer of right heel and midfoot limited to breakdown of skin; L97.512 Non-pressure chronic ulcer of other part of right foot with fat layer exposed; S80.812D Abrasion, left lower leg, subsequent encounter; E11.40 Type 2 diabetes mellitus with diabetic neuropathy, unspecified; R23.4 Changes in skin texture; K61.1 Rectal abscess; I50.9 Heart failure, unspecified; F41.9 Anxiety disorder, unspecified; F32.9 Major depressive disorder, single episode, unspecified; F17.290 Nicotine dependence, other tobacco product, uncomplicated; Z79.01 Long term (current) use of anticoagulants; Z79.4 Long term (current) use of insulin; Z98.890 Other specified postprocedural states; Z79.82 Long term (current) use of aspirin; Z79.899 Other long term (current) drug therapy; Z89.411 Acquired absence of right great toe; Y83.5 Amputation of limb(s) as the cause of abnormal reaction of the patient, or of later complication, without mention of misadventure at the time of the procedure; X58.XXXD Exposure to other specified factors, subsequent encounter ==

== ENCOUNTER → 2021-05-04 | Outpatient (CLI) | payer OTHER | LOC: HYPER 07:46 | PROVIDERS: ATTEND Emergency Medicine Emergency Medical Services | DX: T87.89 Other complications of amputation stump (principal); E11.622 Type 2 diabetes mellitus with other skin ulcer; L89.313 Pressure ulcer of right buttock, stage 3; L89.323 Pressure ulcer of left buttock, stage 3; L98.411 Non-pressure chronic ulcer of buttock limited to breakdown of skin; E11.621 Type 2 diabetes mellitus with foot ulcer; L89.613 Pressure ulcer of right heel, stage 3; L97.411 Non-pressure chronic ulcer of right heel and midfoot limited to breakdown of skin; L97.512 Non-pressure chronic ulcer of other part of right foot with fat layer exposed; S80.812D Abrasion, left lower leg, subsequent encounter; E11.40 Type 2 diabetes mellitus with diabetic neuropathy, unspecified; E66.9 Obesity, unspecified; R23.4 Changes in skin texture; K61.1 Rectal abscess; K43.9 Ventral hernia without obstruction or gangrene; K43.2 Incisional hernia without obstruction or gangrene; I50.9 Heart failure, unspecified; F41.9 Anxiety disorder, unspecified; F32.9 Major depressive disorder, single episode, unspecified; F17.290 Nicotine dependence, other tobacco product, uncomplicated; Z79.01 Long term (current) use of anticoagulants; Z79.4 Long term (current) use of insulin; Z79.82 Long term (current) use of aspirin; Z89.411 Acquired absence of right great toe; Z68.29 Body mass index [BMI] 29.0-29.9, adult; X58.XXXD Exposure to other specified factors, subsequent encounter; Y83.5 Amputation of limb(s) as the cause of abnormal reaction of the patient, or of later complication, without mention of misadventure at the time of the procedure ==

== ENCOUNTER → 2021-05-25 | Outpatient (CLI) | payer OTHER | LOC: HYPER 09:58 | PROVIDERS: ATTEND Emergency Medicine Emergency Medical Services | DX: E11.622 Type 2 diabetes mellitus with other skin ulcer (principal); L89.313 Pressure ulcer of right buttock, stage 3; L89.323 Pressure ulcer of left buttock, stage 3; L98.411 Non-pressure chronic ulcer of buttock limited to breakdown of skin; E11.621 Type 2 diabetes mellitus with foot ulcer; L89.613 Pressure ulcer of right heel, stage 3; L97.411 Non-pressure chronic ulcer of right heel and midfoot limited to breakdown of skin; L97.512 Non-pressure chronic ulcer of other part of right foot with fat layer exposed; S80.812D Abrasion, left lower leg, subsequent encounter; E11.40 Type 2 diabetes mellitus with diabetic neuropathy, unspecified; E66.9 Obesity, unspecified; R23.4 Changes in skin texture; K61.1 Rectal abscess; K43.9 Ventral hernia without obstruction or gangrene; K43.2 Incisional hernia without obstruction or gangrene; I50.9 Heart failure, unspecified; F41.9 Anxiety disorder, unspecified; F32.9 Major depressive disorder, single episode, unspecified; F17.290 Nicotine dependence, other tobacco product, uncomplicated; Z79.01 Long term (current) use of anticoagulants; Z79.4 Long term (current) use of insulin; Z79.82 Long term (current) use of aspirin; Z89.411 Acquired absence of right great toe; Z68.29 Body mass index [BMI] 29.0-29.9, adult; X58.XXXD Exposure to other specified factors, subsequent encounter ==

== ENCOUNTER 2021-06-10 11:22 | Inpatient (IN) | payer OTHER ==
[~2021-06-10] VITALS: Ht 182.9 cm; Wt 94.3 kg
[~2021-06-10 11:22] MED LIST changes: -CELECOXIB200 MG PO; -MULTIPLE VITAM1 EAC2 PO; -TRAZODONE HCL50 MG PO
[2021-06-10 11:27] VITALS: BP 123/82
[2021-06-10 11:52] LABS: ABSOLUTE NEUTROPHILS 6.5 thou/uL (1.4-8.2); BASOPHILS 1.3 % (0.0-2.0); HEMATOCRIT 37.5 % (42.0-52.0); HEMOGLOBIN 11.9 gm/dL (14.0-18.0); MCH 25.9 pg (26.0-34.0); MCHC 31.8 g/dL (28.0-37.0); MCV 81.4 fL (80.0-100.0); MONOCYTES 6.9 % (1.0-8.0); PLATELET COUNT 282 thou/uL (150-400); POLYS 67.8 % (36.0-66.0); RDW 17.3 % (10.5-14.5); WBC 9.6 thou/uL (4.0-11.0)
[2021-06-10 12:02] LABS: CALCIUM 9.2 mg/dL (8.5-10.1); CREATININE 0.9 mg/dL (0.7-1.3); POTASSIUM 5.2 mmol/L (3.5-5.1)
[2021-06-10 12:08] LABS: ALBUMIN 3.1 g/dL (3.4-5.0); TOTAL BILIRUBIN 0.2 mg/dL (0.2-1.0); TOTAL PROTEIN 8.3 g/dL (6.4-8.2)
[2021-06-10] MEDS ORDERED: TRAZODONE HCL50 MG PO (14:35)
[2021-06-10 14:52] VITALS: BP 123/55
[2021-06-10] MEDS ORDERED: MULTIPLE VITAM1 EAC2 PO (15:03)
[2021-06-10] MEDS ORDERED: CELECOXIB200 MG PO (15:05)
[2021-06-10 15:26] VITALS: BP 139/82
--- NOTE | 2021-06-10 17:33 | NUR ---
Patient arrived to 4S @ 1550 via wheelchair. A/O X 4. Room air. Has a cough nonproductive. Left BKA. Right pinky toe necrotic- photos taken and placed on chart. IV right forearm with D5 0.45 ns @ 100 mls/hr. Wears eyeglasses, Has his cell phone, ipad, both chargers with him and nurse added into his admission belongings. His is at bedside. No pain noted at this time. BS 272, 6 units of insulin given.
[2021-06-10 19:10] VITALS: BP 135/82
--- NOTE | 2021-06-10 22:13 | NUR ---
ASSUMED CARE OF PT AT 1915. PT IS A&OX4. IS ON ROOM AIR. DENIES PAIN IN RIGHT FOOT, SMALL TOE; BLACKNESS NOTED. CONTINUES ON ABT. 2+ PITTING EDEMA, REDNESS NOTED IN RIGHT FOOT' ELEVATED. HAS OLD LBKA. IS UP WITH 1 ASSIST, GB, WALKER. FALL PRECAUTIONS & HOURLY ROUNDING CONTINUED THIS SHIFT. IS STABLE. IS SLEEPING AT THIS TIME. CALL LIGHT WITHIN REACH. IS ABLE TO TURN SELF IN BED. WILL CONTINUE TO MONITOR.
[2021-06-11 04:08] VITALS: BP 125/82
[2021-06-11 06:43] LABS: ABSOLUTE NEUTROPHILS 7.1 thou/uL (1.4-8.2); BASOPHILS 0.6 % (0.0-2.0); EOSINOPHILS 2.3 % (0.0-3.0); HEMATOCRIT 34.8 % (42.0-52.0); HEMOGLOBIN 11.3 gm/dL (14.0-18.0); MCH 26.2 pg (26.0-34.0); MCHC 32.4 g/dL (28.0-37.0); MCV 80.9 fL (80.0-100.0); MONOCYTES 5.9 % (1.0-8.0); PLATELET COUNT 277 thou/uL (150-400); POLYS 72.2 % (36.0-66.0); RBC 4.31 mil/uL (4.50-6.00); WBC 9.8 thou/uL (4.0-11.0)
[2021-06-11 07:06] LABS: CALCIUM 8.8 mg/dL (8.5-10.1); CREATININE 0.5 mg/dL (0.7-1.3); MAGNESIUM 1.5 mg/dL (1.8-2.4); POTASSIUM 4.5 mmol/L (3.5-5.1)
[2021-06-11 08:25] VITALS: BP 111/71
--- NOTE | 2021-06-11 10:48 | NUR ---
ASSUMED PT CARE THIS AM. PT IS ALERT & ORIENTED X4. PT HAS IV SITE ON RAC. PT HAS TELE MONITOR ON. PT IS ACCUCHECK ACHS. PT HAS L BKA AND R NECROTIC PINKY TOE. PT IS ON ROOM AIR. PT ON THE BED, BED ON THE LOWEST POSITION, SIDE RAILS UP, CALL LIGHT WITHIN REACH. WILL CONTINUE TO MONITOR PT. FOLLOW POC.
[2021-06-11 12:32] VITALS: BP 95/62
[2021-06-11 15:30] VITALS: BP 95/60
--- NOTE | 2021-06-11 17:27 | NUR ---
Case opened to follow for dc planning. Pt known to cm from admission last year with lt BKA and a 5N acute rehab stay. He was readmitted with an infection and had outpt infusion services and hh per [facility]. He lives with his and everything is on one level. He has all needed dme in place including a powerchair, w/c, sliding board, and bath bench. Pt functions at a w/c level. Pt's pcp is Manish Lester. Poss surgery for rt foot pinky toe. will ask for therapy evals and following along as pt may benefit from hh f/u at dc.
[2021-06-11 20:41] VITALS: BP 116/71
--- NOTE | 2021-06-12 00:28 | NUR ---
PT ALERT AND ORIENTED X 4. BLOOD SUGAR 178 AT HS. LANTUS INSULIN GIVEN ORDERED. PT DENIES PAIN OR DISCOMFORT. PT APPEARS TO BE SLEEPING ON HOURLY ROUNDS.
[2021-06-12 00:53] VITALS: BP 101/60
--- NOTE | 2021-06-12 07:27 | NUR ---
PLAN FOR TOE AMPUTATION TODAY. WILL PLACE ON HOLD AND AWAIT POST OP ORDERS TO PERFORM OT EVAL.
[2021-06-12 08:06] VITALS: BP 120/67
--- NOTE | 2021-06-12 11:48 | NUR ---
ASSUMED PT CARE AROUND 704. PT ALERT X ORIENTED X 4. ON ROOM AIR. 1 X PERSON ASST TO BEDSIDE COMMODE, USES URINALS AT BEDSIDE. OLD LEFT BKA. NPO AFTER BREAKFAST TO DAY , PLANNING FOR SURGERY TODAY AFTER 1600 FOR RT NECROTIC PINKY TOE.NO C/O PAIN. IV RT AC/SL. ACCUCHECK AND ACHS. ON TELE MONITORING. IN THE ROOM. FALL PRECAUTION IN PLACE. WILL CONTINUE TO MONITOR.
--- NOTE | 2021-06-12 14:02 | NUR ---
Pt waiting for toe amputation surgery this afternoon. Cambering Machine Operator visited with the pt and his at bedside. They have all needed dme and prothesis in the home. Their dtr is a nurse and they do not feel they will need hh at dc. They have had [facility] several times in the past. No cm interventions indicated at this time. Will follow along should dc needs arise.
[2021-06-12 19:47] VITALS: BP 133/90
[2021-06-13] VITALS (7 sets, daily range): BP systolic 81–115; BP diastolic 53–77
--- NOTE | 2021-06-13 03:06 | NUR ---
ASSUMED CARE OF PT AT 1900. BESIDE REPOPRT RECIEVED. ALEN ASSESSMENT COMPLETE. MEDS ADMINISTERED PER DEC. COREG AND LISINPRIL HELD PER MD ORDERS D/T LOW BP. R FOOT DRESSING CDI, NO DRAINAGE OBSERVED. PT C/O UNCONTROLLED PAIN, PER PT NORCO PROVIDES NO RELIEF. RECIEVED NEW ORDER FROM PROVIDER FOR PAIN MEDICATION, AFTER ADMINISTRATION PT ABLE TO SLEEP AND REPORTS PARTIAL RELIEF. ASSISTED PT TO BATHROOM USING GAITBELT AND WC. ASSISTED PT SAFELY BACK TO BED. R WRIST PIV PATENT AND SECURE. LAB COLLECTED VANCO TROP AROUND 0130 AND PHARMACY ADJUSTED VANCO DOSE. NEW VANCO DOSE HUNG AT 0300.TELE MONITORING CONTUNING. ALL NEEDS MET, CALL LIGHT IN REACH.
--- NOTE | 2021-06-13 14:23 | NUR ---
ASSUMED CARE OF PT AT 0700 THIS MORNING. PT IS A/OX4 WITH ULCERATIONS AND REMOVAL OF THE SMALL TOE ON THE RT FOOT. CR<3SEC X4, SKIN INTACT WITH NO TENTING. ASSESSMENTS NOTED IN CHART AND OTHERWISE UNREMARKABLE. PT CAN STAND AND PIVOT IN RT FOOT. PT HAS AMPUTATION OF LT LEG. FALL PRECAUTIONS ARE IN PLACE AND CALL LIGHT WITH OTHER NEEDS ARE IN REACH. MEDS AND TX GIVEN NEEDED AND SCHEDULED. WILL MONITOR AND NOTE ANY CHANGES.
--- NOTE | 2021-06-13 23:44 | NUR ---
ASSUMED CARE OF PT AT 1900. BEDSIDE REPORT RECIEVED. ALEN ASSESSMENT COMPLETE. BP RUNNING LOW, PT ASYMPTOMATIC, RECHECKED 1 HOUR LATER, WNL. SCHEDULED MEDS GIVEN PER DEC. COREG AND LINISPRIL HELD PER MD ORDERS D/T LOW BP. R WRIST PIV PATENT, AND DRESSING REINFORCED C TEGADERM. R FOOT DRESSING CDI, NO APPARENT DRAINAGE, SECURED C RANDAL BANDAGE. C/O 6/10 R FOOT PAIN, PAIN MEDS GIVEN INDICATED. ALL NEEDS MET, CALL LIGHT IN REACH.
--- NOTE | 2021-06-14 03:53 | NUR ---
I CONCUR WITH THE PT NOTE AND ASSESSMENT BY IRA PRIETO.
[2021-06-14 04:10] VITALS: BP 122/77
[2021-06-14 07:48] VITALS: BP 110/68
--- NOTE | 2021-06-14 15:14 | NUR ---
Dr. Dumont paged and made aware of critical [facility] trough of 26.
[2021-06-14 15:25] VITALS: BP 115/82
[2021-06-14 20:21] VITALS: BP 110/58
[2021-06-15 00:46] VITALS: BP 107/67
[2021-06-15 02:38] LABS: HEMATOCRIT 29.6 % (42.0-52.0); HEMOGLOBIN 9.6 gm/dL (14.0-18.0); MCH 26.3 pg (26.0-34.0); MCHC 32.6 g/dL (28.0-37.0); MCV 80.6 fL (80.0-100.0); RBC 3.67 mil/uL (4.50-6.00); RDW 16.9 % (10.5-14.5); WBC 7.4 thou/uL (4.0-11.0)
[2021-06-15 02:57] LABS: CREATININE 0.8 mg/dL (0.7-1.3); MAGNESIUM 1.5 mg/dL (1.8-2.4); POTASSIUM 3.9 mmol/L (3.5-5.1)
--- NOTE | 2021-06-15 03:13 | NUR ---
UPON SHIFT ASSESSMENT, PT AOX4. PT DENIES PAIN AND SOB WHILE ON ROOM AIR. PT HAS PRN PO OXYCODONE Q4HR, PRN IV MORPHINE Q4HR, AND PRN PO APAP Q4HR AVAILABLE. PT TOLERATING PO INTAKE OF FLUIDS AND HEART HEALTHY DIET WITHOUT ISSUE. PT WITHOUT NAUSEA OR EMESIS. PT PIVOT TRANSFERRING FROM BED TO W/C, VOIDING PER URINAL AND BATHROOM, RESTING IN BED OTHERWISE. FREQUENT REPOSITIONING ENCOURAGED WHILE IN BED. PT NOTED TO SHIFT INDEPENDENTLY. PT REPORTS NUMBNESS IN SACRUM DUE TO REPORTS OF PROLONGED SITTING. CAPILLARY REFILL LESS THAN 3SEC, PERIPHERAL PULSES PALPABLE IN ALL EXTREMITIES. PT ENCOURAGED TO NOTIFY STAFF FOR ALL NEEDS, CALL LIGHT WITHIN REACH, BED ALARM ON, BED LOCKED IN LOWEST POSITION, FREQUENT MONITORING WILL CONTINUE.
[2021-06-15 04:39] VITALS: BP 97/62
[2021-06-15 07:15] VITALS: BP 111/68
[2021-06-15 12:45] VITALS: BP 77/45
--- NOTE | 2021-06-15 15:57 | NUR ---
PT HAD R TOE AMP. PT CONTINUES ON IV VANC Q24. AWAITING FINAL CULTURES AND FINAL ID RECS. CM FOLLOWING REGARDING DC PLANNING.
[2021-06-15 16:26] VITALS: BP 88/51
[2021-06-15] MEDS ORDERED: PERCOCET PO (17:46)
[2021-06-15] MEDS ORDERED: ACETAMINOPHEN325 M1 PO (17:46)
[2021-06-15] MEDS ORDERED: LANTUS SUBQ (17:46)
[2021-06-15] MEDS ORDERED: TRAZODONE HCL50 MG PO (17:46)
[2021-06-15] MEDS ORDERED: AMOX TR-K CLV1 EAC4 PO (17:46)
[2021-06-15 18:11] VITALS: BP 88/51
--- NOTE | 2021-06-15 18:29 | NUR ---
Assumed pt care at 7am.Pt in bed resting and anxious about going home today. Assessment completed.vss.Pt c/o rt foot pain. Pain med given with am med and breakfast. Complete relief noted.Dr Scruggs and Vidhi here okay pt to dc home today on po antibiotic.Dr Dumont notified,order noted. Dc summary compile and reviewed with pt and .Moi wadsworth dc'd.At 1835,pt dc home in [place] with accompanied by this rn.
[2021-06-16] MEDS ORDERED: PERCOCET PO (15:35)
[2021-06-16] MEDS ORDERED: AMOX TR-K CLV1 EAC4 PO (15:35)
[2021-06-16] MEDS ORDERED: LANTUS SUBQ (15:35)
[2021-06-16] MEDS ORDERED: TRAZODONE HCL50 MG PO (15:35)
[2021-06-16] MEDS ORDERED: ACETAMINOPHEN325 M1 PO (15:35)
--- NOTE | 2021-06-16 16:06 | PATH ---
[facility] [place] [address] PATHOLOGY RPT PROCEDURE Name: GEOFF PEARSON Room #: 443-P DIS IN M.R.#: [id number] Admission: 06/10/21 Date of : 55 Discharge: 06/15/21 Report #: [id number] Path Case #: [id number] L[facility] Accession Number: [id number] . 01 Material submitted: . toe - RIGHT FIFTH TOE METATARSAL HEAD. Modifiers: right, fifth, head . 01 Clinical history: . AMPUTATION OF TOES GANGRENE RIGHT 5TH TOE DIABETIC INFECTION, FIFTH DIGIT OF RIGHT FOOT . 02 Diagnosis: Toe, right fifth toe metatarsal head, amputation: - Ulceration and gangrenous necrosis. - Acute inflammation extending into underlying bone associated with acute osteomyelitis. - Soft tissue margin viable on intact toe. - Additional metatarsal head showing unremarkable bone. (IUV:melvi; 06/16/2021) MBR 06/16/2021 1349 Local . 02 Electronically signed: . Annette Machado MD, Pathologist NPI- [id number] . 01 Gross description: . The specimen is received in formalin, labeled "Geoff Pearson, right fifth toe metatarsal head". Received is an amputated digit measuring 5.1 x 2.7 x 1.8 cm in greatest dimensions. The bone margin is smooth and concave in appearance, consistent with disarticulation. The bone and soft tissue margins are inked black. The nail is absent. The epidermal surface is blue-nuñez to necrotic in appearance, and underlying bone is exposed over approximately half of the specimen. A full-thickness longitudinal cross-section is submitted from proximal to distal aspects in cassettes A1 and A2, following decalcification. . Also received within the specimen container is a segment of light yeboah bone measuring 1.9 x 1.4 x 1.3 cm in greatest dimensions. One margin is smooth and convex in appearance, consistent with disarticulation, and the opposite margin is blunt in appearance, consistent with transection. The transected margin is inked black. A full thickness cross-section is submitted in cassette A3, following decalcification. (CAA; 06/15/2021) QAC/QAC 06/15/2021 0907 Local . 02 Pathologist provided ICD-10: [address] [address] PATHOLOGY RPT PROCEDURE Name: GEOFF PEARSON Room #: 443-P DIS IN M.R.#: [id number] Admission: 06/10/21 Date of : 55 Discharge: 06/15/21 Report #: [id number] Path Case #: [id number] L97.519, L98.9, M86.171, I96 . 02 CPT . 104438, [id number] Specimen Comment: A courtesy copy of this report has been sent to [phone] Specimen Comment: [phone], Specimen Comment: Report sent to DR. RAGLAND, DR CALLEJAS / DR DOLL Performed at: [address] [facility] [address], [place], [place] [id number] MD Efren Romeo MD Phone: [phone] Performed at: [address] [facility] [id number] MD Annette Machado MD Phone: [phone]
--- NOTE | 2021-06-18 08:50 | HC ---
[facility] [place] [address] CONSULTATION Name: GLADYS VILLATORO Room #: 443-P [facility] IN M.R.#: [id number] Admission: 06/10/21 Attend Phys: Artur Dumont MD Discharge: 06/15/21 Date of : 55 Report #: [id number] THIS REPORT FOR: cc: Manish Guevara MD,Manish London,Karthikeyan Sullivan MD ~ DATE OF SERVICE: 06/11/2021 WOUND CARE CONSULTATION PERSONAL PHYSICIAN: Dr. Manish Guevara. CHIEF COMPLAINT: Right fifth toe wet gangrene. HISTORY OF PRESENT ILLNESS: This is a 66-year-old white male who I saw in clinic yesterday as an add-on for concern for blackness of his right fifth toe. The patient's states this started just in the past couple of days. She noticed sometimes somewhere an odor. She was concerned and called our office and we got him in emergently to see the patient. After seeing the patient, it was felt the patient needed to be admitted for IV antibiotics and amputation of the fifth toe. Currently, Podiatry has already been consulted and we will follow the patient as well for the toe while he is here as well as postoperatively. The patient denies any other associated wounds at this time. PAST MEDICAL HISTORY: Significant for diabetes, chronic toe infection, now with wet gangrene, chronic kidney disease, previous [id number] amputation. The patient also has a history of rheumatoid arthritis. MEDICATIONS: Multiple, I reviewed the patient's medication list. DRUG ALLERGIES: CIPRO. SOCIAL HISTORY: The patient smokes 2 packs of cigarettes daily. Denies alcohol use. Lives at home with his . FAMILY HISTORY: Not pertinent to current medical condition. REVIEW OF SYSTEMS: CONSTITUTIONAL: The patient denies fevers or chills. NEUROLOGIC: The patient complains of overall generalized weakness, but no isolated weakness in arms or legs. EYES: No complaints. EARS, NOSE, AND THROAT: No complaints. CARDIAC: The patient denies chest pain, palpitations, peripheral edema. RESPIRATORY: The patient denies shortness of breath, cough, wheezes. GASTROINTESTINAL: The patient denies nausea, vomiting, abdominal pain. [facility] [address] [place] [address] CONSULTATION Name: GLADYS VILLATORO Room #: 443-P [facility] IN .R.#: [id number] Admission: 06/10/21 Attend Phys: Artur Dumont MD Discharge: 06/15/21 Date of : 55 Report #: [id number] GENITOURINARY: The patient denies urgency or frequency. MUSCULOSKELETAL: No complaints. SKIN: The patient has a wet gangrene to the right fifth toe. PHYSICAL EXAMINATION: VITAL SIGNS: Temperature 36.6, pulse 95, respirations 18, BP 120/67. GENERAL: This is alert and oriented x 3, pleasant white male who is in no obvious distress. HEENT: Normocephalic, atraumatic. Mucous membranes are somewhat dry. Pupils are round. Sclerae white. NECK: Without JVD. LUNGS: Clear. HEART: Regular. ABDOMEN: Soft, nontender. EXTREMITIES: The patient moves all extremities without difficulty. The patient has distal 1+ dorsalis pedis and posterior tibial pulses. Evaluation of right fifth toe reveals wet gangrene with black necrosis. There is moderate foul smelling odor. Rest of the foot has mild erythema up to the mid foot with warmth, but no actual tenderness. There is moderate swelling of the foot itself. No tenderness or swelling up into the leg or calf. NEUROLOGIC: Cranial nerves 2-12 grossly intact. Motor and sensory grossly intact. LABORATORY VALUES: White count 9.8, hemoglobin 11.3, BUN 13, creatinine 0.5. Hemoglobin A1c in the past was 7.6, albumin 3.1. Lower extremity Doppler of the right leg shows no signs of stenosis. IMPRESSION: 1. Wet gangrene of the right fifth toe. 2. Uncontrolled diabetes mellitus. 3. Protein calorie malnutrition -- moderate with albumin at 3.1. 4. Generalized debility. 5. History of rheumatoid arthritis. 6. History of previous left below-knee amputation. PLAN: The patient has already been started on IV antibiotics. We will continue with Betadine to the right toe daily. Podiatry has been consulted for amputation. Hospitalists are managing the patient's diabetes mellitus. We will make sure to maximize the patient's oral protein supplementation for healing. We will utilize physical and occupational therapy if the patient is able. We [address] [address] CONSULTATION Name: GLADYS VILLATORO Room #: 443-P DIS IN M.R.#: [id number] Admission: 06/10/21 Attend Phys: Artur Dumont MD Discharge: 06/15/21 Date of : 55 Report #: [id number] will continue all other current medications. I appreciate the ability to consult. <ELECTRONICALLY SIGNED> By: Karthikeyan London MD 06/18/21 0850 1110 [id number] Karthikeyan London MD /nt
== END 2021-06-15 18:30 | disposition home or self-care (01) | DRG 239 ==
LOC: ER 11:22 → 4S 13:42 → EROBS 13:42 → 4S 15:36
PROVIDERS: Emergency Medicine; Nurse Practitioner; ADMIT Internal Medicine; ATTEND Internal Medicine
PROC: 0Y6M0ZF Detachment at Right Foot, Partial 5th Ray, Open Approach (ICD-10-PCS; principal; 2021-06-12)
PROC: 0Y6X0Z1 Detachment at Right 5th Toe, High, Open Approach (ICD-10-PCS; principal; 2021-06-12)
DX: E11.52 Type 2 diabetes mellitus with diabetic peripheral angiopathy with gangrene (principal); L89.313 Pressure ulcer of right buttock, stage 3; L89.613 Pressure ulcer of right heel, stage 3; E43 Unspecified severe protein-calorie malnutrition; I50.20 Unspecified systolic (congestive) heart failure; I96 Gangrene, not elsewhere classified; E11.628 Type 2 diabetes mellitus with other skin complications; E11.65 Type 2 diabetes mellitus with hyperglycemia; L03.031 Cellulitis of right toe; I50.84 End stage heart failure; F12.90 Cannabis use, unspecified, uncomplicated; E11.621 Type 2 diabetes mellitus with foot ulcer; L97.513 Non-pressure chronic ulcer of other part of right foot with necrosis of muscle; R53.81 Other malaise; F17.210 Nicotine dependence, cigarettes, uncomplicated; E11.22 Type 2 diabetes mellitus with diabetic chronic kidney disease; N18.9 Chronic kidney disease, unspecified; E87.5 Hyperkalemia; E11.42 Type 2 diabetes mellitus with diabetic polyneuropathy; I34.0 Nonrheumatic mitral (valve) insufficiency; G89.4 Chronic pain syndrome; Z20.822 Contact with and (suspected) exposure to COVID-19; M06.9 Rheumatoid arthritis, unspecified; Z90.49 Acquired absence of other specified parts of digestive tract; Z89.512 Acquired absence of left leg below knee; Z89.411 Acquired absence of right great toe; Z88.1 Allergy status to other antibiotic agents; Z68.28 Body mass index [BMI] 28.0-28.9, adult; Z91.19 Patient's noncompliance with other medical treatment and regimen; Z79.891 Long term (current) use of opiate analgesic; Z71.6 Tobacco abuse counseling; Z79.899 Other long term (current) drug therapy
CPT/HCPCS: 10100; 50010; 50101; 50386; 50951; 56525; 56527; 57091; 57178; 62110; 62850; 70005

== ENCOUNTER → 2021-06-10 | Outpatient (CLI) | payer OTHER ==
[~2021-06-10] MED LIST changes: +CELECOXIB200 MG PO; +MULTIPLE VITAM1 EAC2 PO; +TRAZODONE HCL50 MG PO
== END ==
LOC: HYPER 07:37
PROVIDERS: ATTEND Emergency Medicine
DX: E11.622 Type 2 diabetes mellitus with other skin ulcer (principal); L89.313 Pressure ulcer of right buttock, stage 3; L98.411 Non-pressure chronic ulcer of buttock limited to breakdown of skin; E11.621 Type 2 diabetes mellitus with foot ulcer; L97.512 Non-pressure chronic ulcer of other part of right foot with fat layer exposed; L89.613 Pressure ulcer of right heel, stage 3; L97.411 Non-pressure chronic ulcer of right heel and midfoot limited to breakdown of skin; S80.812D Abrasion, left lower leg, subsequent encounter; K61.1 Rectal abscess; R23.4 Changes in skin texture; K43.2 Incisional hernia without obstruction or gangrene; N50.1 Vascular disorders of male genital organs; L84 Corns and callosities; I50.9 Heart failure, unspecified; E66.9 Obesity, unspecified; F41.9 Anxiety disorder, unspecified; F32.9 Major depressive disorder, single episode, unspecified; F17.290 Nicotine dependence, other tobacco product, uncomplicated; Z98.890 Other specified postprocedural states; Z79.01 Long term (current) use of anticoagulants; Z79.4 Long term (current) use of insulin; Z68.29 Body mass index [BMI] 29.0-29.9, adult; Z89.612 Acquired absence of left leg above knee; Z79.82 Long term (current) use of aspirin; Z79.899 Other long term (current) drug therapy; Z89.421 Acquired absence of other right toe(s); X58.XXXD Exposure to other specified factors, subsequent encounter

== ENCOUNTER → 2021-06-26 | Outpatient (CLI) | payer OTHER ==
[~2021-06-26] MED LIST changes: +ACETAMINOPHEN325 M1 PO; +AMOX TR-K CLV1 EAC4 PO; +CELECOXIB200 MG PO; +MULTIPLE VITAM1 EAC2 PO; +TRAZODONE HCL50 MG PO
== END ==
LOC: HYPER 07:46
PROVIDERS: ATTEND Emergency Medicine Emergency Medical Services
DX: T87.89 Other complications of amputation stump (principal); E11.621 Type 2 diabetes mellitus with foot ulcer; L89.613 Pressure ulcer of right heel, stage 3; L97.411 Non-pressure chronic ulcer of right heel and midfoot limited to breakdown of skin; E11.622 Type 2 diabetes mellitus with other skin ulcer; L89.313 Pressure ulcer of right buttock, stage 3; L98.411 Non-pressure chronic ulcer of buttock limited to breakdown of skin; L97.512 Non-pressure chronic ulcer of other part of right foot with fat layer exposed; S80.812D Abrasion, left lower leg, subsequent encounter; K61.1 Rectal abscess; R23.4 Changes in skin texture; E11.40 Type 2 diabetes mellitus with diabetic neuropathy, unspecified; K43.2 Incisional hernia without obstruction or gangrene; N50.1 Vascular disorders of male genital organs; K43.9 Ventral hernia without obstruction or gangrene; I50.9 Heart failure, unspecified; E66.9 Obesity, unspecified; F41.9 Anxiety disorder, unspecified; F32.9 Major depressive disorder, single episode, unspecified; F17.290 Nicotine dependence, other tobacco product, uncomplicated; Z68.29 Body mass index [BMI] 29.0-29.9, adult; Z98.890 Other specified postprocedural states; Z79.01 Long term (current) use of anticoagulants; Z79.4 Long term (current) use of insulin; Z79.899 Other long term (current) drug therapy; Z89.612 Acquired absence of left leg above knee; X58.XXXD Exposure to other specified factors, subsequent encounter; Y83.5 Amputation of limb(s) as the cause of abnormal reaction of the patient, or of later complication, without mention of misadventure at the time of the procedure

== ENCOUNTER → 2021-08-04 | Outpatient (CLI) | payer OTHER | LOC: HYPER 07:41 | PROVIDERS: ATTEND Emergency Medicine | DX: T87.89 Other complications of amputation stump (principal); E11.621 Type 2 diabetes mellitus with foot ulcer; L89.613 Pressure ulcer of right heel, stage 3; L97.411 Non-pressure chronic ulcer of right heel and midfoot limited to breakdown of skin; E11.622 Type 2 diabetes mellitus with other skin ulcer; L89.313 Pressure ulcer of right buttock, stage 3; L89.324 Pressure ulcer of left buttock, stage 4; L98.411 Non-pressure chronic ulcer of buttock limited to breakdown of skin; L97.512 Non-pressure chronic ulcer of other part of right foot with fat layer exposed; S80.812D Abrasion, left lower leg, subsequent encounter; K61.1 Rectal abscess; R23.4 Changes in skin texture; E11.40 Type 2 diabetes mellitus with diabetic neuropathy, unspecified; K43.2 Incisional hernia without obstruction or gangrene; N50.1 Vascular disorders of male genital organs; K43.9 Ventral hernia without obstruction or gangrene; I50.9 Heart failure, unspecified; E66.9 Obesity, unspecified; F41.9 Anxiety disorder, unspecified; F32.9 Major depressive disorder, single episode, unspecified; F17.290 Nicotine dependence, other tobacco product, uncomplicated; Z68.29 Body mass index [BMI] 29.0-29.9, adult; Z79.01 Long term (current) use of anticoagulants; Z79.4 Long term (current) use of insulin; Z89.612 Acquired absence of left leg above knee; X58.XXXD Exposure to other specified factors, subsequent encounter; Y83.5 Amputation of limb(s) as the cause of abnormal reaction of the patient, or of later complication, without mention of misadventure at the time of the procedure ==

== ENCOUNTER → 2021-08-17 | Outpatient (CLI) | payer OTHER | LOC: HYPER 07:54 | PROVIDERS: ATTEND Emergency Medicine | DX: T87.89 Other complications of amputation stump (principal); E11.621 Type 2 diabetes mellitus with foot ulcer; L89.613 Pressure ulcer of right heel, stage 3; L97.411 Non-pressure chronic ulcer of right heel and midfoot limited to breakdown of skin; E11.622 Type 2 diabetes mellitus with other skin ulcer; L89.313 Pressure ulcer of right buttock, stage 3; L89.324 Pressure ulcer of left buttock, stage 4; L98.411 Non-pressure chronic ulcer of buttock limited to breakdown of skin; L97.512 Non-pressure chronic ulcer of other part of right foot with fat layer exposed; S80.812D Abrasion, left lower leg, subsequent encounter; K61.1 Rectal abscess; R23.4 Changes in skin texture; E11.40 Type 2 diabetes mellitus with diabetic neuropathy, unspecified; K43.2 Incisional hernia without obstruction or gangrene; N50.1 Vascular disorders of male genital organs; K43.9 Ventral hernia without obstruction or gangrene; I50.9 Heart failure, unspecified; E66.9 Obesity, unspecified; F41.9 Anxiety disorder, unspecified; F32.9 Major depressive disorder, single episode, unspecified; F17.290 Nicotine dependence, other tobacco product, uncomplicated; Z68.29 Body mass index [BMI] 29.0-29.9, adult; Z79.01 Long term (current) use of anticoagulants; Z79.4 Long term (current) use of insulin; Z89.612 Acquired absence of left leg above knee; X58.XXXD Exposure to other specified factors, subsequent encounter; Y83.5 Amputation of limb(s) as the cause of abnormal reaction of the patient, or of later complication, without mention of misadventure at the time of the procedure ==

== ENCOUNTER → 2021-08-31 | Outpatient (CLI) | payer OTHER | LOC: HYPER 09:25 | PROVIDERS: ATTEND Emergency Medicine Emergency Medical Services | DX: T87.89 Other complications of amputation stump (principal); E11.622 Type 2 diabetes mellitus with other skin ulcer; L89.313 Pressure ulcer of right buttock, stage 3; L89.324 Pressure ulcer of left buttock, stage 4; L98.411 Non-pressure chronic ulcer of buttock limited to breakdown of skin; E11.621 Type 2 diabetes mellitus with foot ulcer; L89.613 Pressure ulcer of right heel, stage 3; L97.411 Non-pressure chronic ulcer of right heel and midfoot limited to breakdown of skin; K61.1 Rectal abscess; R23.4 Changes in skin texture; K43.2 Incisional hernia without obstruction or gangrene; I50.9 Heart failure, unspecified; N50.1 Vascular disorders of male genital organs; K43.9 Ventral hernia without obstruction or gangrene; E66.9 Obesity, unspecified; F32.9 Major depressive disorder, single episode, unspecified; F41.9 Anxiety disorder, unspecified; F17.290 Nicotine dependence, other tobacco product, uncomplicated; Z68.29 Body mass index [BMI] 29.0-29.9, adult; Z79.01 Long term (current) use of anticoagulants; Z79.4 Long term (current) use of insulin; Z89.612 Acquired absence of left leg above knee; Y83.5 Amputation of limb(s) as the cause of abnormal reaction of the patient, or of later complication, without mention of misadventure at the time of the procedure ==

== ENCOUNTER → 2021-09-14 | Outpatient (CLI) | payer OTHER | LOC: HYPER 09:45 | PROVIDERS: ATTEND Emergency Medicine Emergency Medical Services | DX: T87.89 Other complications of amputation stump (principal); E11.622 Type 2 diabetes mellitus with other skin ulcer; L89.324 Pressure ulcer of left buttock, stage 4; L89.313 Pressure ulcer of right buttock, stage 3; L98.411 Non-pressure chronic ulcer of buttock limited to breakdown of skin; E11.621 Type 2 diabetes mellitus with foot ulcer; L89.613 Pressure ulcer of right heel, stage 3; L97.411 Non-pressure chronic ulcer of right heel and midfoot limited to breakdown of skin; K61.1 Rectal abscess; R23.4 Changes in skin texture; K43.2 Incisional hernia without obstruction or gangrene; N50.1 Vascular disorders of male genital organs; K43.9 Ventral hernia without obstruction or gangrene; I50.9 Heart failure, unspecified; E66.9 Obesity, unspecified; F41.9 Anxiety disorder, unspecified; F32.9 Major depressive disorder, single episode, unspecified; F17.290 Nicotine dependence, other tobacco product, uncomplicated; Z68.29 Body mass index [BMI] 29.0-29.9, adult; Z79.01 Long term (current) use of anticoagulants; Z79.4 Long term (current) use of insulin; Z79.82 Long term (current) use of aspirin; Z79.899 Other long term (current) drug therapy; Z89.612 Acquired absence of left leg above knee; Y83.5 Amputation of limb(s) as the cause of abnormal reaction of the patient, or of later complication, without mention of misadventure at the time of the procedure ==

== ENCOUNTER → 2021-09-28 | Outpatient (CLI) | payer OTHER | LOC: HYPER 07:47 | PROVIDERS: ATTEND Emergency Medicine | DX: T87.89 Other complications of amputation stump (principal); E11.622 Type 2 diabetes mellitus with other skin ulcer; L89.324 Pressure ulcer of left buttock, stage 4; L89.314 Pressure ulcer of right buttock, stage 4; L98.411 Non-pressure chronic ulcer of buttock limited to breakdown of skin; E11.621 Type 2 diabetes mellitus with foot ulcer; L89.613 Pressure ulcer of right heel, stage 3; L97.411 Non-pressure chronic ulcer of right heel and midfoot limited to breakdown of skin; K61.1 Rectal abscess; R23.4 Changes in skin texture; K43.2 Incisional hernia without obstruction or gangrene; N50.1 Vascular disorders of male genital organs; K43.9 Ventral hernia without obstruction or gangrene; I50.9 Heart failure, unspecified; E66.9 Obesity, unspecified; F41.9 Anxiety disorder, unspecified; F32.9 Major depressive disorder, single episode, unspecified; F17.290 Nicotine dependence, other tobacco product, uncomplicated; Z68.29 Body mass index [BMI] 29.0-29.9, adult; Z79.01 Long term (current) use of anticoagulants; Z79.4 Long term (current) use of insulin; Z79.82 Long term (current) use of aspirin; Z79.899 Other long term (current) drug therapy; Z89.612 Acquired absence of left leg above knee; Y83.5 Amputation of limb(s) as the cause of abnormal reaction of the patient, or of later complication, without mention of misadventure at the time of the procedure ==